=== PATIENT | male | born 1955 | race Caucasian/White ===

== ENCOUNTER 2020-03-05 13:57 | Observation (INO) | payer MEDICARE, SELFPAY ==
[2020-03-05] VITALS (8 sets, daily range): BP systolic 154–180; BP diastolic 89–108; PULSE 90–109; RESP 15–20; TEMP 36.2–36.7; O2SAT 94–100; BMI 38.0
--- NOTE | ~2020-03-05 | XR_ITS ---
XR chest 2V DATE: 03/06/2020 10:25 INDICATION: Left chest pain. Bilateral infiltrates. TECHNIQUE: PA and lateral chest COMPARISON: 03/05/2020 portable AP chest 10/25/2019 CT chest FINDINGS: There are areas of soft tissue prominence associated with multiple left rib fractures inclu ding left fourth through seventh ribs. Consider left rib series for further evaluation. No pneumothor ax is noted. There is minimal bilateral apical capping. Calcified left lower lobe pulmonary granuloma . No pulmonary infiltrate or consolidation is detected. No pleural effusion. No hilar or mediastinal enlargement is evident. Normal heart size. Diffuse idiopathic skeletal hyperostosis of the thoracic spine Status post lower anterior cervical spine surgical fusion. IMPRESSION: Multiple likely recent healing left rib fractures, involving at least the anterolateral l eft fourth through seventh ribs Reviewed, dictated and finalized at location A. IMPRESSION: Multiple likely recent healing left rib fractures, involving at vipul st the anterolateral left fourth through seventh ribs
--- NOTE | ~2020-03-05 | XR_ITS ---
EXAMINATION: XR chest 1V portable DATE: 03/05/2020 14:32 INDICATION: Left chest pain. TECHNIQUE: A single frontal view of the chest was obtained. COMPARISON: Chest 2 views 05/24/2013, chest CT 10/25/2019 FINDINGS: A calcified left lung nodule and calcified left hilar lymph nodes are consistent with old g ranulomatous disease. There are interstitial opacities in the perihilar regions bilaterally. No pleur al effusion or pneumothorax. The heart size is normal. There are changes of anterior fusion procedure in cervical spine. IMPRESSION: 1. Bilateral perihilar interstitial opacities, consistent with mild pulmonary edema versus atypical p neumonia versus atelectasis. Reviewed, dictated and finalized at location A. IMPRESSION: 1. Bilateral perihilar interstitial opacities, consistent with mild pulmonary e jean versus atypical pneumonia versus atelectasis.
--- NOTE | ~2020-03-05 | CT_ITS ---
EXAMINATION: CT abdomen pelvis w con EXAM DATE: 03/05/2020 15:54 INDICATION: Left-sided abdominal pain. TECHNIQUE: Spiral CT of the abdomen and pelvis was performed following intravenous injection of 100 m L Omnipaque 350. Axial, coronal and sagittal images were reviewed. The dose-length product (DLP) fo r this examination was 1584.65 mGy-cm. The exposure was tailored according to patient size (auto mA exposure control), and iterative reconstruction (ASIR) was used as additional dose reduction techniqu e. Comparison is made to prior examination from 10/25/2019. FINDINGS: The largest liver cyst is in the left liver lobe, measures 1.9 cm. There is a right adrena l gland lesion measuring 0.8 cm probably a small adenoma. Left adrenal gland, pancreas, spleen are un remarkable. Gallbladder has mild inflammation surrounding it. No calcified cholelithiasis, but appearance is susp icious for acute cholecystitis. No common bile or intrahepatic biliary duct dilation. Small region o f right renal cortical scarring. No hydronephrosis. The prostate is unremarkable. The bladder is un remarkable. There is no retroperitoneal or pelvic lymphadenopathy. The appendix is normal. The stomach and small bowel are unremarkable. There is expected amount of c olonic stool. No free intraperitoneal gas. The heart is normal in size. There are no pericardial or pleural effusions. The lung bases are unremarkable. There are no osteoblastic or osteolytic les ions identified. L4-5 laminectomies, posterior and interbody fusion. IMPRESSION: 1. Probable acute cholecystitis. 2. Small right adrenal lesion likely adenoma unchanged. 3. Right renal cortical scarring. Reviewed, dictated and finalized at location A.
--- NOTE | ~2020-03-05 | US_ITS ---
EXAMINATION: US right upper quadrant DATE: 03/06/2020 10:21 INDICATION: Acute cholecystitis. TECHNIQUE: Multiple grayscale and Doppler ultrasound images of the abdomen were obtained. COMPARISON: CT abdomen and pelvis 03/05/2020 FINDINGS: The visualized portions of the head, body, and tail of the pancreas are normal. There is di ffuse hepatic steatosis. There is normal flow in main portal vein. The gallbladder is normal in size. There are gallstones in the gallbladder. Gallbladder wall thickening is noted. There was no sonograp hic Lopes sign. The common duct is normal and measures 5 mm. IMPRESSION: 1. Gallstones. Gallbladder wall thickening may be secondary to chronic cholecystitis, interstitial ed edd, or chronic liver disease. 2. Diffuse hepatic steatosis. Reviewed, dictated and finalized at location A. IMPRESSION: 1. Gallstones. Gallbladder wall thickening may be secondary to chronic cholecys titis, interstitial edema, or chronic liver disease. 2. Diffuse hepatic steatosis.
--- NOTE | ~2020-03-05 | NM_ITS ---
EXAMINATION: NM hepatobiliary w pharm DATE: 03/06/2020 12:33 INDICATION: Acute cholecystitis. COMPARISON: CT abdomen and pelvis 03/05/2020, ultrasound 03/06/2020 TECHNIQUE: 5.5 mCi Tc-99m mebrofenin (Choletec) was administered intravenously. Scintigraphic images of the abdomen were obtained for one hour. Then, 2 mg morphine was administered, and imaging was con tinued for 30 minutes. FINDINGS: There is normal clearance of radiotracer from the blood pool. There is homogeneous tracer u ptake by the liver. Activity progresses to the bowel. IMPRESSION: 1. No activity in the gallbladder, consistent with acute cholecystitis. Reviewed, dictated and finalized at location A.
--- NOTE | 2020-03-05 14:12 | ECG_ITS ---
Measurements Intervals [place] Rate: 107 P: 51 [place]: 143 QRS: -3 QRSD: 88 T: 27 QT: 332 QTc: 444 Interpretive Statements SINUS TACHYCARDIA BORDERLINE T WAVE ABNORMALITY- INFERIOR LEADS BASELINE ARTIFACT- I, II ABNORMAL ECG Electronically Signed On 03-05-2020 15:27:07 CDT by Kannan Quezada D.O.
--- NOTE | 2020-03-05 14:27 | ED.CHESTPAIN ---
HPI - Chest Pain General Chief Complaint: Chest Pain Stated Complaint: ABD/CHEST PAIN Time Seen by Provider: 03/05/20 14:08 Source: patient Limitations: no limitations History of Present Illness HPI narrative: Pt c/o chest pain, left chest, 06/16, non radiating, pressure, accompanied by left sided abd pain, started today. Denies n/v/d or fever. Denies sob. Related Data Allergies Allergy/AdvReac Type Severity Reaction Status Date / Time No Known Allergies Allergy Verified 05/03/19 15:56 Review of Systems Review of Systems: All systems reviewed & are unremarkable except as noted in HPI and below Constitutional: Constitutional: Denies body ache(s), Denies chills, Denies excessive sweating, Denies fatigue, Denies fever(s), Denies headache(s), Denies lethargy, Denies malaise, Denies weakness and Denies weight loss Eyes: Eyes: Denies blurry vision, Denies change in vision and Denies loss of vision ENT: Denies dizziness, Denies ear discharge, Denies headache(s), Denies lip swelling, Denies epistaxis, Denies nasal congestion, Denies neck pain, Denies throat swelling and Denies tongue swelling Cardiovascular: Cardiovascular: Denies diaphoresis, Denies rapid heart rate, Denies edema, Denies irregular heart rhythm, Denies lightheadedness, Denies palpitations, Denies dyspnea and Denies dyspnea on exertion Respiratory: Respiratory: Denies chest congestion, Denies cough, Denies hemoptysis, Denies dyspnea and Denies dyspnea on exertion Gastrointestinal: Gastrointestinal: Denies melena, Denies hematochezia, Denies diarrhea, Denies nausea, Denies vomiting and Denies hematemesis Musculoskeletal: Musculoskeletal: Denies abnormal gait, Denies deformity, Denies joint swelling, Denies limited range of motion, Denies neck pain and Denies numbness Neurologic: Denies Abnormal speech present, Denies abnormal gait, Denies confusion, Denies dizziness, Denies headache(s), Denies focal weakness, Denies loss of vision, Denies numbness, Denies Other visual disturbances, Denies Sensory deficit (Neuro) and Denies weakness Psychiatric: Psychiatric: Denies confusion, Denies depression, Denies auditory hallucinations, Denies homicidal ideation and Denies suicidal ideation Endocrine: Endocrine: Denies cold intolerance, Denies excessive sweating, Denies fatigue, Denies heat intolerance and Denies palpitations Hematologic/Lymphatic: Hematologic/Lymphatic: Denies easy bleeding and Denies easy bruising Allergic/Immunologic: Allergic/Immunologic: Denies lip swelling, Denies throat swelling and Denies tongue swelling PMFSH Past Medical History Medical History (Updated 03/05/20 @ 16:32 by Yohannes Peterson MD) Anxiety DM (diabetes mellitus) GERD (gastroesophageal reflux disease) H/O: HTN (hypertension) Heart murmur History of heart attack Hx of migraines Hx of rotator cuff tear Hypercholesteremia Surgical History Surgical History (Updated 10/25/19 @ 20:16 by Damien Britton) Hx of cardiac cath Hx of rotator cuff surgery Hx of spinal fusion Social History Social History (Updated 10/25/19 @ 20:17 by Damien Britton) Smoking status: Former smoker Gender identity (if verbalized by the patient): Male Exam Const: General: cooperative, healthy appearing, comfortable, no acute distress, well developed, alert and awake; No confusion Orientation/consciousness: oriented to person, oriented to place, oriented to time, patient oriented x3 and No confusion Limitations: no limitations HENMT: Head: normal to inspection, normocephalic and atraumatic Ears: hearing grossly normal bilaterally, TM normal on the right and TM normal on the left General nose exam: Normal external nose present, Normal nares present and No nasal discharge present Face and sinus: normal facial exam Mouth: Yes Normal oral and palatal mucosa present, Yes lip normal, Yes tongue normal and Yes oropharynx normal Throat: posterior oropharynx normal, tonsils normal and uvula midline Eyes: General: ap
[2020-03-05] MEDS: ASPIRIN 81 MG CHEWABLE TABLET 324 MG PO (14:29)
[2020-03-05 14:31] LABS: Basophils Absolute Auto 0.1 K/mm3 (0.0-0.1); Basophils Percent Auto 0.5 % (0.2-1.2); Eosinophils Absolute Auto 0.1 K/mm3 (0-0.3); Eosinophils Percent Auto 0.7 % (0-4.4); Hematocrit 46.6 % (42.0-52.0); Hemoglobin 15.8 g/dL (14.0-18.0); Immature Granulocyte Absolute 0.06 K/mm3 (0.00-0.031); Immature Granulocyte Percent A 0.4 % (0-0.5); Lymphocytes Absolute Auto 1.91 K/mm3 (0.9-3.2); Lymphocytes Percent Auto 13.9 % (18.3-44.2); Mean Corpuscular HGB Conc 33.9 g/dl (32-36); Mean Corpuscular Hemoglobin 29.1 pg (26-34); Mean Corpuscular Volume 85.8 fl (80-100); Monocytes Absolute Auto 1.1 K/mm3 (0.1-0.6); Monocytes Percent Auto 8.3 % (2.6-8.5); Neutrophils Absolute Auto 10.5 K/mm3 (1.3-6.7); Neutrophils Percent Auto 76.2 % (45.5-73.1); Platelet Count Result 370 k/mm3 (150-375); Red Blood Count 5.43 M/mm3 (4.6-6.20); Red Cell Distribution Width 13.9 % (11.5-14.5); White Blood Count 13.8 K/mm3 (4.5-10.0)
[2020-03-05] MEDS: SODIUM CHLORIDE 0.9% IV 1,000 ML 999 ML IV CONT (14:35)
[2020-03-05] MEDS: ONDANSETRON INJ 4 MG/2 ML VIAL IV PUSH (14:35)
[2020-03-05] MEDS: MORPHINE SULFATE 2 MG/ML INJ IV PUSH ×2 (14:36→17:24)
[2020-03-05 14:39] LABS: INR 0.9; Prothrombin Time 11.7 Seconds (11.1-14.7)
[2020-03-05 14:40] LABS: Partial Thromboplastin Time 25.7 SECONDS (22.3-36.8)
[2020-03-05 14:42] LABS: Blood Urea Nitrogen 17 mg/dL (9-20); Calcium 9.8 mg/dL (8.4-10.2); Carbon Dioxide 24 mmol/L (22-30); Chloride 102 mmol/L (98-107); Estimated CRCL calculation 103 ml/min; Estimated Glomerular Filt Rate > 60; Glucose 142 mg/dL (75-110); Potassium 3.7 mmol/L (3.4-5.0); Sodium 135 mmol/L (137-145)
[2020-03-05 14:53] LABS: Troponin I < 0.012 ng/mL (0.000-0.034)
[2020-03-05 14:55] LABS: D Dimer 0.29 ug/mL (<0.48)
[2020-03-05 14:57] LABS: Alanine Aminotransferase 20 U/L (4-50); Albumin Level 4.7 g/dL (3.5-5.1); Alkaline Phosphatase 128 U/L (38-126); Aspartate Amino Transferase 28 U/L (17-59); Bilirubin,Total 0.3 mg/dL (0.2-1.3); Lipase 62 U/L (23-300)
[2020-03-05] MEDS: SODIUM CHLORIDE 0.9% IV 50 ML 999 ML (15:34)
[2020-03-05] MEDS: PROMETHAZINE HCL 25 MG/ML AMPUL 12.5 MG IV PUSH (15:34)
[2020-03-05 17:52] LABS: Troponin I 0.018 ng/mL (0.000-0.034)
--- NOTE | 2020-03-05 18:22 | PC.NURSE ---
This patient, Lauri Almeida, was admitted to IMU Room 203-01. Patient/family oriented to hospital policies and general routines including ID bracelet, bed and alarms, visiting hours, pain management, procedures, bathroom and other care routines, personal items, smoking policy, room service/diet, and visiting hours. Valuables list has been completed. Information on how to activate the Rapid Response Team has been discussed. Patient/Family are encouraged to report perceived risks to care and to ask questions if they do not understand what they are told or what they should do.
[2020-03-05] MEDS: LACTATED RINGERS 1,000 ML 125 ML IV CONT (18:48)
[2020-03-05] MEDS: MORPHINE SULFATE 2 MG/ML INJ 1 MG IV PUSH (20:59)
--- NOTE | 2020-03-05 21:41 | PM.IMHP ---
H&P: HPI History of Present Illness Chief complaint: chest pain,acute cholecystitis Narrative: Lauri Almeida is a 65 year old male who states that he has had a cardiac catheterization in the past and was negative. The patient stated he had some type of cardiac event when he was 8 years old. But does not recall getting any kind of cardiac surgery. The patient does have severe acid reflux as well. He in the had fried chicken last night the both woke up this morning with some chest discomfort. The patient stated that he took [place], Pepto-Bismol, and Maalox. He stated that he did not have any relief from his midsternal chest pain. He has not had any previous history of having any cardiac issues or any gallbladder issues. The patient stated that he had some midsternal pressure. And also affected the left side of the abdomen. Patient had some midsternal tenderness earlier when I examined him. Patient was given morphine for discomfort but he stated did not last very long. Cardiac enzymes have been negative so far. CT of the abdomen pelvis without contrast probable acute cholecystitis. Small right adrenal lesion likely adenoma unchanged. Right renal cortical scarring. Patient was started on Zosyn for possible cholecystitis and surgery has been consulted. Was read as sinus tachycardia. Abnormal EKG. When I saw his rhythm just now on the monitor it looks like sinus arrhythmia. Date of service 03/05/2020 Review of Systems Review of Systems: All systems reviewed & are unremarkable except as noted in HPI and below Constitutional: Constitutional: Reports as per HPI and Reports no additional constitutional complaints Eyes: Eyes: Reports as per HPI and Reports no additional eye complaints ENT: Reports system reviewed and no additional complaints, except as documented and Reports Normal hearing present Cardiovascular: Cardiovascular: Reports no additional cardiovascular complaints Respiratory: Respiratory: Reports no additional respiratory complaints and Reports no additional respiratory complaints Gastrointestinal: Gastrointestinal: Reports as per HPI and Reports no additional gastrointestinal complaints Musculoskeletal: Musculoskeletal: Reports no additional musculoskeletal complaints Integumentary/Breasts: Skin/Breast: Reports system reviewed and no additional complaints, except as docu and Reports as per HPI Neurologic: Reports system reviewed and no additional complaints, except as documented, Reports as per HPI and Reports Normal hearing present Psychiatric: Psychiatric: Reports no additional psychiatric complaints and Reports as per HPI Endocrine: Endocrine: Reports no additional endocrine complaints Hematologic/Lymphatic: Hematologic/Lymphatic: Reports no additional hematologic/lymphatic complaints Allergic/Immunologic: Allergic/Immunologic: Reports no additional allergic/immunologic complaints PMFSH Past Medical History Medical History (Updated 03/05/20 @ 21:48 by Mi Waite NP) Anxiety GERD (gastroesophageal reflux disease) H/O: HTN (hypertension) Heart murmur History of heart attack Hx of migraines Hx of rotator cuff tear Hypercholesteremia Hypertension Surgical History Surgical History (Updated 03/05/20 @ 21:48 by Mi Waite NP) Hx of cardiac cath Hx of rotator cuff surgery Right rotator cuff Hx of spinal fusion Social History Social History (Updated 03/05/20 @ 21:49 by Mi Waite NP) Social History: The patient tells me that he quit smoking about 14 years ago. He lives with his who is the durable power sheriff detective for healthcare. Patient desires to be a full code. He has 1 child that is a son. He is disabled. He quit drinking alcohol about 30 years ago. No marijuana or illicit drugs. Smoking packs per day: 3 Smoking cigarettes per day: 60.0 Years smoked: 34 Smoking pack-years: 102.00 Smoking status: Former smoker Tobacco type: cigarettes Alcohol in
[2020-03-05 21:42] LABS: Troponin I 0.022 ng/mL (0.000-0.034)
[2020-03-05] MEDS: HYDROMORPHONE HCL 1 MG/ML INJ IV PUSH (22:16)
[2020-03-05] MEDS: hydrOXYzine pamoate 25 MG CAPSULE 50 MG PO (22:33)
[2020-03-05] MEDS: FAMOTIDINE 20 MG/2 ML VIAL IV PUSH (22:34)
[2020-03-05] MEDS: SERTRALINE HCL 50 MG TABLET 100 MG PO (22:34)
[2020-03-06] VITALS (10 sets, daily range): BP systolic 121–154; BP diastolic 72–90; PULSE 83–100; RESP 18–26; TEMP 36.2–37.1; O2SAT 92–96
[2020-03-06] MEDS: LACTATED RINGERS 1,000 ML 125 ML IV CONT ×2 (02:45→14:19)
[2020-03-06] MEDS: HYDROMORPHONE HCL 1 MG/ML INJ IV PUSH ×2 (02:45→23:19)
[2020-03-06 04:43] LABS: Basophils Absolute Auto 0.1 K/mm3 (0.0-0.1); Basophils Percent Auto 0.6 % (0.2-1.2); Eosinophils Absolute Auto 0.2 K/mm3 (0-0.3); Eosinophils Percent Auto 2.1 % (0-4.4); Hematocrit 43.3 % (42.0-52.0); Hemoglobin 14.6 g/dL (14.0-18.0); Immature Granulocyte Absolute 0.03 K/mm3 (0.00-0.031); Immature Granulocyte Percent A 0.4 % (0-0.5); Lymphocytes Absolute Auto 1.08 K/mm3 (0.9-3.2); Lymphocytes Percent Auto 12.8 % (18.3-44.2); Mean Corpuscular HGB Conc 33.7 g/dl (32-36); Mean Corpuscular Hemoglobin 29.4 pg (26-34); Mean Corpuscular Volume 87.3 fl (80-100); Mean Platelet Volume 8.8 fl (7.4-10.4); Monocytes Absolute Auto 0.9 K/mm3 (0.1-0.6); Monocytes Percent Auto 10.1 % (2.6-8.5); Neutrophils Absolute Auto 6.2 K/mm3 (1.3-6.7); Platelet Count Result 266 k/mm3 (150-375); Red Blood Count 4.96 M/mm3 (4.6-6.20); Red Cell Distribution Width 14.2 % (11.5-14.5); White Blood Count 8.4 K/mm3 (4.5-10.0)
[2020-03-06 04:54] LABS: Alanine Aminotransferase 18 U/L (4-50); Alkaline Phosphatase 81 U/L (38-126); Aspartate Amino Transferase 24 U/L (17-59); Bilirubin,Total 0.4 mg/dL (0.2-1.3); Blood Urea Nitrogen 12 mg/dL (9-20); Calcium 8.4 mg/dL (8.4-10.2); Carbon Dioxide 25 mmol/L (22-30); Chloride 105 mmol/L (98-107); Estimated CRCL calculation 117 ml/min; Estimated Glomerular Filt Rate > 60; Glucose 124 mg/dL (75-110); Lipase 80 U/L (23-300); Magnesium 2.1 mg/dL (1.6-2.3); Sodium 135 mmol/L (137-145)
[2020-03-06 07:41] LABS: Free T4 Free Thyroxine Reflex 0.95 ng/dL (0.78-2.19)
[2020-03-06] MEDS: FAMOTIDINE 20 MG/2 ML VIAL IV PUSH ×2 (08:18→21:00)
[2020-03-06 08:51] LABS: Total Triiodothyronine (T3) 1.25 NG/ML (0.97-1.69)
[2020-03-06 09:05] LABS: Hemoglobin 13.7 g/dL (14.0-18.0); Mean Corpuscular HGB Conc 33.4 g/dl (32-36); Mean Corpuscular Hemoglobin 29.1 pg (26-34); Mean Corpuscular Volume 87.2 fl (80-100); Mean Platelet Volume 8.7 fl (7.4-10.4); Platelet Count Result 240 k/mm3 (150-375); Red Cell Distribution Width 14.4 % (11.5-14.5); White Blood Count 8.4 K/mm3 (4.5-10.0)
[2020-03-06 09:17] LABS: Blood Urea Nitrogen 12 mg/dL (9-20); Calcium 8.2 mg/dL (8.4-10.2); Carbon Dioxide 26 mmol/L (22-30); Chloride 103 mmol/L (98-107); Estimated CRCL calculation 132 ml/min; Estimated Glomerular Filt Rate > 60; Glucose 124 mg/dL (75-110); Sodium 134 mmol/L (137-145)
[2020-03-06 09:28] LABS: Troponin I < 0.012 ng/mL (0.000-0.034)
[2020-03-06] MEDS: KETOROLAC 30 MG/ML VIAL (*BKC) IV PUSH (10:43)
[2020-03-06] MEDS: MORPHINE SULFATE 2 MG/ML INJ IV PUSH (11:55)
[2020-03-06] MEDS: hydrOXYzine pamoate 25 MG CAPSULE 50 MG PO ×3 (12:31→20:58)
[2020-03-06] MEDS: LOSARTAN POTASSIUM 100 MG TABLET PO (12:31)
[2020-03-06] MEDS: hydroCHLOROthiazide 12.5 MG CAPSULE PO (12:31)
[2020-03-06] MEDS: AMLODIPINE BESYLATE 5 MG TABLET PO (12:32)
[2020-03-06] MEDS: FENOFIBRATE 160 MG TABLET PO (12:32)
[2020-03-06] MEDS: SERTRALINE HCL 50 MG TABLET 100 MG PO ×2 (12:32→20:57)
--- NOTE | 2020-03-06 13:38 | PM.IMPN ---
Progress Note: A&P Assessment and Plan (1) Acute cholecystitis: Code(s): K81.0 - Acute cholecystitis Status: Acute Assessment and Plan: CT, U/s, HIDA all c/w acute cholecystitis Surgical consultation (2) Chest pain in adult: Code(s): R07.9 - Chest pain, unspecified Status: Acute Assessment and Plan: Noncardiac Likely due to acute cholecystitis (3) Hypertension: Qualifiers: Hypertension type: unspecified Qualified Code(s): I10 - Essential (primary) hypertension Code(s): I10 - Essential (primary) hypertension Status: Chronic Assessment and Plan: Monitor on home regimen PRN hydralazine if NPO for procedure (4) GERD (gastroesophageal reflux disease): Qualifiers: Esophagitis presence: esophagitis presence not specified Qualified Code(s): K21.9 - Gastro-esophageal reflux disease without esophagitis Code(s): K21.9 - Gastro-esophageal reflux disease without esophagitis Status: Chronic Assessment and Plan: Famotidine Subjective Date/time seen: 03/06/20 13:38 Interval history: Admitted 03/05 with upper abd, chest pain. More pain in LUQ. 03/06: Mild pain in upper abdomen. Mild nausea. No CP or SOB. Review of Systems Review of Systems: All systems reviewed & are unremarkable except as noted in HPI and below Exam Narrative: Exam Narrative: HEENT: EOMI, PERRL, sclerae nonicteric, pharyngeal mucosa pink and intact NECK: No JVD CHEST: Clear to auscultation. Normal effort. HEART: NL S1/S2, regular, no murmur ABDOMEN: BS+, soft, TENDER LUQ AND RLQ, no mass or rebound or guarding EXTREMITIES: No cyanosis, edema, or clubbing NEUROLOGIC: CN intact and symmetric to inspection. MUSCULOSKELETAL: Tone and strength symmetric. PSYCH: Alert. Oriented to person, place, and time. Objective Data Vital Signs Vital Signs: Vital Signs - 24 hr 03/05/20 14:09 03/05/20 15:01 03/05/20 16:01 Temperature 98.1 F Pulse Rate 109 H 93 94 Respiratory Rate 20 18 16 Blood Pressure 170/104 H 180/108 H 179/108 H Pulse Oximetry 95 94 97 03/05/20 17:20 03/05/20 18:15 03/05/20 18:19 Temperature 97.2 F L Pulse Rate 94 103 H 100 Respiratory Rate 15 20 Blood Pressure 178/95 H 155/89 H Pulse Oximetry 97 100 03/05/20 20:00 03/05/20 22:00 03/06/20 00:00 Temperature 97.9 F 98.7 F Pulse Rate 93 94 100 Respiratory Rate 20 20 Blood Pressure 154/98 H 147/90 H Pulse Oximetry 94 93 03/06/20 02:00 03/06/20 04:00 03/06/20 06:00 Temperature 98.7 F Pulse Rate 100 83 91 Respiratory Rate 20 Blood Pressure 154/89 H Pulse Oximetry 92 03/06/20 07:55 03/06/20 08:00 03/06/20 09:56 Temperature 98.2 F Pulse Rate 97 87 86 Respiratory Rate 24 H Blood Pressure 137/81 Pulse Oximetry 94 03/06/20 12:30 Temperature 97.2 F L Pulse Rate 84 Respiratory Rate 26 H Blood Pressure 141/85 H Pulse Oximetry 95 Intake/Output Intake/Output: Intake & Output 03/03/20 03/04/20 03/05/20 03/06/20 23:59 23:59 23:59 23:59 Intake Total 1150 1568 Output Total 1650 Balance 1150 -82 Meds/Results Medications: Active Medications Generic Name Dose Route Start Last Admin Trade Name Freq PRN Reason Stop Dose Admin Amlodipine Besylate 5 mg 03/06/20 09:00 03/06/20 12:32 Norvasc PO 5 mg DAILY PRETTY Administration Enoxaparin Sodium 40 mg 03/06/20 09:00 03/06/20 08:19 Lovenox SUB-Q Not Given DAILY PRETTY Famotidine 20 mg 03/05/20 22:15 03/06/20 08:18 Pepcid Iv IV PUSH 20 mg Q12HR PRETTY Administration Fenofibrate 160 mg 03/06/20 09:00 03/06/20 12:32 Fenofibrate PO 160 mg DAILY PRETTY Administration Hydrochlorothiazide 12.5 mg 03/06/20 09:00 03/06/20 12:31 Hydrochlorothiazide PO 12.5 mg DAILY PRETTY Administration Hydromorphone HCl 1 mg 03/05/20 21:53 03/06/20 02:45 Dilaudid Inj IV PUSH 1 mg Q3H PRN Administration Pain Rated 7-10 Hydroxyzine Fausto
--- NOTE | 2020-03-06 14:13 | PM.CNGS ---
Assessment and Plan Assessment and plan (1) Cholelithiasis and acute cholecystitis with obstruction: Code(s): K80.01 - Calculus of gallbladder with acute cholecystitis with obstruction Status: Acute Assessment and Plan: patient is feeling better now but HIDA scan does show cystic duct obstruction consistent with acute cholecystitis and cystic duct obstruction. I will go ahead and try the patient on a low-fat diet. I discussed the findings with him and have recommended laparoscopic cholecystectomy. He would prefer to go ahead with gallbladder surgery now while he is in the hospital. I discussed the procedure with him in detail. The procedure the risks the benefits and the usual recovery were discussed. Possibility of conversion open surgery was discussed. All questions were answered. He understands and agrees to go ahead. We will proceed tomorrow afternoon. (2) Type 2 diabetes mellitus: Code(s): E11.9 - Type 2 diabetes mellitus without complications Status: Chronic Assessment and Plan: Increases risk of the surgical procedure. (3) Morbid obesity due to excess calories: Code(s): E66.01 - Morbid (severe) obesity due to excess calories Status: Chronic Assessment and Plan: Increases risk of the surgical procedure. (4) Hypertension: Qualifiers: Hypertension type: unspecified Qualified Code(s): I10 - Essential (primary) hypertension Code(s): I10 - Essential (primary) hypertension Status: Chronic Assessment and Plan: Increases risk of the surgical procedure. (5) GERD (gastroesophageal reflux disease): Qualifiers: Esophagitis presence: esophagitis presence not specified Qualified Code(s): K21.9 - Gastro-esophageal reflux disease without esophagitis Code(s): K21.9 - Gastro-esophageal reflux disease without esophagitis Status: Chronic History of Present Illness Consult details Consult date: 03/06/20 Reason for consult: gallstones Narrative: the patient is a 65-year-old man who had fried chicken with mesh potatoes and gravy Winnie night. He went to bed and slept fine until 6:00 a.m. yesterday morning. He awakened at 6:00 a.m. with severe left chest and left upper quadrant abdominal pain. The pain was very severe, 8/10. It felt like a knife. He had chest pain about a year ago but this was bilateral and ended up being bilateral pneumonia. This pain is only in the left chest. He came to the emergency room. In the emergency room he was noted to be afebrile but did have tachycardia to 109 per minute. [place] [id number]. He had a CT scan which showed some mild inflammation of the gallbladder but no calcified gallstones but felt to probably be cholecystitis. His LFTs were normal outside of a barely elevated alkaline phosphatase. The patient was admitted overnight and his pain went away about 4:00 a.m. this morning. He currently has no pain at all and is hungry. He is not sure of any 1st degree relatives that have gallbladder problems. He is seen now in consultation regarding his left chest and left upper quadrant abdominal pain with abnormal CT scan. Review of Systems Review of Systems: All systems reviewed & are unremarkable except as noted in HPI and below Constitutional: Constitutional: Denies headache(s) ENT: Denies headache(s) Cardiovascular: Cardiovascular: Denies chest pain and Denies dyspnea Respiratory: Respiratory: Denies cough and Denies dyspnea Gastrointestinal: Gastrointestinal: Reports as per HPI Neurologic: Denies confusion and Denies headache(s) Psychiatric: Psychiatric: Denies confusion [facility] Past Medical History Medical History Anxiety GERD (gastroesophageal reflux disease) H/O: HTN (hypertension) Heart murmur History of heart attack Hx of migraines Hx of rotator cuff tear Hypercholesteremia Hypertension
[2020-03-06] MEDS: PROCHLORPERAZINE EDISYLATE 10 MG/2 ML VIAL IV PUSH (14:18)
--- NOTE | 2020-03-06 16:39 | WPDANESEPP ---
Anes - Eval Pre Procedure Procedure: Operation Date: 03/07/20 12:00 Proposed Procedures p Laparoscopic Cholecystectomy - Rupesh Jordan MD Date/Time: 03/06/20 16:39 Pre Op Diagnosis: chest pain,acute cholecystitis Patient Data Age: 65 Gender: M Height: 6 ft 1 in Weight: 131.5 kg Last Vital Signs Temp 97.7 F 03/06/20 15:21 Pulse 85 03/06/20 15:21 Resp 21 H 03/06/20 15:21 BP 149/82 H 03/06/20 15:21 Pulse Ox 95 03/06/20 15:21 Allergies Allergy/AdvReac Type Severity Reaction Status Date / Time No Known Allergies Allergy Verified 03/05/20 18:29 Home Medications Medication Instructions Recorded Confirmed Type methocarbamol [Robaxin-750] 750 mg PO TID 10 Days #30 tablet 10/25/19 03/05/20 Rx amlodipine 5 mg PO DAILY 03/05/20 03/05/20 History fenofibrate 160 mg PO DAILY 03/05/20 03/05/20 History hydrocodone-acetaminophen 1 tablet PO PRN PRN 03/05/20 03/05/20 History hydroxyzine pamoate 50 mg PO QID 03/05/20 03/05/20 History losartan-hydrochlorothiazide 1 tablet PO DAILY 03/05/20 03/05/20 History sertraline 100 mg PO BID 03/05/20 03/05/20 History Laboratory Tests 03/05/20 03/05/20 03/06/20 17:23 21:14 04:12 WBC 8.4 K/mm3 K/mm3 (4.5-10.0) RBC 4.96 M/mm3 M/mm3 (4.6-6.20) Hgb 14.6 g/dL g/dL (14.0-18.0) Hct 43.3 % % (42.0-52.0) MCV 87.3 fl fl (80-100) MCH 29.4 pg pg (26-34) MCHC 33.7 g/dl g/dl (32-36) RDW 14.2 % % (11.5-14.5) Plt Count 266 k/mm3 k/mm3 (150-375) MPV 8.8 fl fl (7.4-10.4) Immature Gran % (Auto) 0.4 % % (0-0.5) Neut % (Auto) 74.0 % H % (45.5-73.1) Lymph % (Auto) 12.8 % L % (18.3-44.2) [place] % (Auto) 10.1 % H % (2.6-8.5) Eos % (Auto) 2.1 % % (0-4.4) Baso % (Auto) 0.6 % % (0.2-1.2) Lymph # (Auto) 1.08 K/mm3 K/mm3 (0.9-3.2) [place] # (Auto) 0.9 K/mm3 H K/mm3 (0.1-0.6) Eos # (Auto) 0.2 K/mm3 K/mm3 (0-0.3) Baso # (Auto) 0.1 K/mm3 K/mm3 (0.0-0.1) Abs Immat Gran (auto) 0.03 K/mm3 K/mm3 (0.00-0.031) Absolute Neuts (auto) 6.2 K/mm3 K/mm3 (1.3-6.7) Absolute Nucleated RBC 0.0 K/mm3 K/mm3 (0.0-0.012) Nucleated RBC % 0.0 % % (0.0-0.2) Sodium Potassium Chloride Carbon Dioxide BUN Creatinine Estim Creat Clear Calc Estimated GFR Glucose Calcium Magnesium Total Bilirubin AST ALT Alkaline Phosphatase Troponin I 0.018 ng/mL D ng/mL 0.022 ng/mL D ng/mL (0.000-0.034) (0.000-0.034) Total Protein Albumin Lipase TSH (Reflex) Free T4 Total T3 Blood Type Antibody Screen 03/06/20 03/06/20 03/06/20 04:12 04:12 04:12 WBC RBC Hgb Hct MCV MCH MCHC RDW Plt Count MPV Immature Gran % (Auto) Neut % (Auto) Lymph % (Auto) [place] % (Auto) Eos % (Auto) Baso % (Auto) Lymph # (Auto) [place] # (Auto) Eos # (Auto) Baso # (Auto) Abs Immat Gran (auto) Absolute Neuts (auto) Absolute Nucleated RBC Nucleated RBC % Sodium 135 mmol/L L mmol/L (137-145) Potassium 4.0 mmol/L mmol/L (3.4-5.0) Chloride 105 mmol/L mmol/L (98-107) Carbon Dioxide 25 mmol/L mmol/L (22-30) BUN 12 mg/dL D mg/dL (9-20) Creatinine 0.80 mg/dL mg/dL (0.7-1.3) Estim Creat Clear Calc 117 ml/min ml/min Estimated
[2020-03-07] VITALS (13 sets, daily range): BP systolic 120–152; BP diastolic 71–99; PULSE 83–100; RESP 16–24; TEMP 35.7–36.9; O2SAT 92–97
[2020-03-07] MEDS: LACTATED RINGERS 1,000 ML 125 ML IV CONT (02:23)
[2020-03-07] MEDS: CHLORHEXIDINE GLUCONATE 4% SOL 120 ML BTL 1 APPLIC TOPICAL (05:36)
[2020-03-07] MEDS: HYDROMORPHONE HCL 1 MG/ML INJ IV PUSH (06:55)
--- NOTE | 2020-03-07 07:59 | P.PNAN_ITS ---
Anes - Eval Final PreProcedure Day of Procedure 03/07/20 07:59 Patient weight: obese Heart: regular rate and rhythm Lungs: clear to auscultation and normal air movement Airway: Mallampati scale class II Neurological: alert and oriented Last oral intake: >/= 8 hours ASA classification: III Emergent: no Anesthetic plan: proceed Anesthesia type and monitoring: general ETT Informed Consent: The patient's anesthetic plan and its attendant risks and be nefits were discussed with the patient/family/POA. Questions were solicited and answers provided to the satisfaction of the patient/family/POA.
[2020-03-07] MEDS: FAMOTIDINE 20 MG/2 ML VIAL IV PUSH ×2 (08:21→20:53)
[2020-03-07] MEDS: AMLODIPINE BESYLATE 5 MG TABLET PO (08:21)
--- NOTE | 2020-03-07 09:20 | PM.IMPN ---
Progress Note: A&P Assessment and Plan (1) Acute cholecystitis: Code(s): K81.0 - Acute cholecystitis Status: Deleted Assessment and Plan: CT, U/s, HIDA all c/w acute cholecystitis Medically stable for lap zhane 03/07 (2) Chest pain in adult: Code(s): R07.9 - Chest pain, unspecified Status: Acute Assessment and Plan: Noncardiac Clinically due to acute cholecystitis (3) Hypertension: Qualifiers: Hypertension type: unspecified Qualified Code(s): I10 - Essential (primary) hypertension Code(s): I10 - Essential (primary) hypertension Status: Chronic Assessment and Plan: Monitor on home regimen PRN hydralazine while NPO for procedure (4) GERD (gastroesophageal reflux disease): Qualifiers: Esophagitis presence: esophagitis presence not specified Qualified Code(s): K21.9 - Gastro-esophageal reflux disease without esophagitis Code(s): K21.9 - Gastro-esophageal reflux disease without esophagitis Status: Chronic Assessment and Plan: Famotidine Subjective Date/time seen: 03/07/20 09:20 Interval history: Admitted 03/05 with upper abd, chest pain. More pain in LUQ. 03/07: Minimal abdominal discomfort. No nausea. No CP or SOB. Review of Systems Review of Systems: All systems reviewed & are unremarkable except as noted in HPI and below Exam Narrative: Exam Narrative: HEENT: EOMI, PERRL, sclerae nonicteric, pharyngeal mucosa pink and intact NECK: No JVD CHEST: Clear to auscultation. Normal effort. HEART: NL S1/S2, regular, no murmur ABDOMEN: BS+, soft,MINIMALLY TENDER LUQ AND RLQ, no mass or rebound or guarding EXTREMITIES: No cyanosis, edema, or clubbing NEUROLOGIC: CN intact and symmetric to inspection. MUSCULOSKELETAL: Tone and strength symmetric. PSYCH: Alert. Oriented to person, place, and time. Objective Data Vital Signs Vital Signs: Vital Signs - 24 hr 03/06/20 09:56 03/06/20 12:30 03/06/20 15:21 Temperature 97.2 F L 97.7 F Pulse Rate 86 84 85 Respiratory Rate 26 H 21 H Blood Pressure 141/85 H 149/82 H Pulse Oximetry 95 95 03/06/20 22:00 03/07/20 06:00 03/07/20 09:02 Temperature 97.5 F L 97.6 F Pulse Rate 95 92 Respiratory Rate 18 18 Blood Pressure 121/72 149/81 H Pulse Oximetry 96 96 92 Intake/Output Intake/Output: Intake & Output 03/04/20 03/05/20 03/06/20 03/07/20 23:59 23:59 23:59 23:59 Intake Total 1150 3540 700 Output Total 1650 Balance 1150 1890 700 Meds/Results Medications: Active Medications Generic Name Dose Route Start Last Admin Trade Name Freq PRN Reason Stop Dose Admin Amlodipine Besylate 5 mg 03/06/20 09:00 03/07/20 08:21 Norvasc PO 5 mg DAILY PRETTY Administration Enoxaparin Sodium 40 mg 03/06/20 09:00 03/07/20 07:43 Lovenox SUB-Q Not Given DAILY PRTETY Famotidine 20 mg 03/05/20 22:15 03/07/20 08:21 Pepcid Iv IV PUSH 20 mg Q12HR PRETTY Administration Fenofibrate 160 mg 03/06/20 09:00 03/07/20 07:43 Fenofibrate PO Not Given DAILY [facility] Fentanyl Citrate 25 mcg 03/07/20 07:50 Sublimaze IV PUSH Q2M PRN Pain Hydralazine HCl 10 mg 03/06/20 13:49 Apresoline Hcl Inj IV PUSH Q8H PRN Blood Pressure - High Hydrochlorothiazide 12.5 mg 03/06/20 09:00 03/07/20 08:18 Hydrochlorothiazide PO Not Given DAILY PRETTY Hydromorphone HCl 1 mg 03/05/20 21:53 03/07/20 06:55 Dilaudid Inj IV PUSH 1 mg Q3H PRN Administration Pain Rated 7-10 Hydromorphone HCl 0.25 mg 03/07/20 07:50 Dilaudid Inj IV PUSH Q5M PRN Pain Hydroxyzine Pamoate 50 mg 03/05/20 22:05 03/07/20 08:16 Vistaril Capsule PO 04/05/20 22:06 Not Given QID PRETTY Lactated Ringer's 1,000 mls @ 125 mls/hr 03/05/20 16:35 03/07/20 02:23 Lr - Lactated Ringers Iv IV CONT 125 mls/hr .Q8H PRETTY Administration Piperacillin/Tazobactam/Dextrose 3.375 gm in 50 mls @ 100 mls/hr 03/06/20
[2020-03-07 10:28] LABS: Blood Urea Nitrogen 10 mg/dL (9-20); Calcium 8.6 mg/dL (8.4-10.2); Carbon Dioxide 23 mmol/L (22-30); Chloride 106 mmol/L (98-107); Estimated CRCL calculation 118 ml/min; Estimated Glomerular Filt Rate > 60; Glucose 110 mg/dL (75-110); Potassium 3.8 mmol/L (3.4-5.0); Sodium 136 mmol/L (137-145)
--- NOTE | 2020-03-07 10:32 | PC.NURSE ---
To OR per bed. IV saline locked.
[2020-03-07] MEDS: LACTATED RINGERS 1,000 ML 30 ML IV CONT ×2 (11:00→15:38)
[2020-03-07 11:53] LABS: Glucose Point of Care 93 (65-105)
[2020-03-07] MEDS: ceFAZolin 3 GM/D5W 100 ML 100 ML IVPB (13:28)
[2020-03-07] MEDS: BUPIVACAINE/EPINEPHRINE 0.5% 30 ML VIAL INFILTRATE (14:46)
--- NOTE | 2020-03-07 15:36 | PM.PROC ---
Procedure Note - Detailed Date of procedure: 03/07/20 Pre-op diagnosis: chest pain,acute cholecystitis Cholelithiasis with acute cholecystitis and cystic duct obstruction Post-op diagnosis: same Procedure performed: Laparoscopic cholecystectomy Description of procedure: The patient was taken to surgery and induced into general anesthesia. The abdomen was prepped and draped. Trocars were placed in the usual fashion using 0.5% Marcaine with epinephrine and applied Medical optical trocars. 5 mm camera was used. The gallbladder was surrounded by omental adhesions. There were also adhesions to the undersurface of the liver. These were taken down and a very inflamed gallbladder was noted. Bleeding from the adhesions occurred and cautery was required to control this. The gallbladder wall was quite thickened and edematous consistent with acute inflammation. There was no evidence of a ruptured gallbladder. I had to place a 5th trocar in the left mid abdomen to help with posterior retraction of the duodenum. Once the adhesions were taken down, I then proceeded to decompress the gallbladder with a laparoscopic aspirator. Dark bile was returned. The gallbladder decompressed well. We then retracted the gallbladder anterosuperiorly and freed the remaining adhesions to the infundibulum and distal gallbladder. Traction was placed on the infundibulum and dissection was started. The inflammation was very severe and some cautery was used. There was acute inflammation with plume and smoke making the dissection more difficult. Eventually the cystic duct and cystic artery were exposed. The gallbladder was dissected off the liver at its lower 3rd and critical view was achieved. I securely clipped and divided the cystic duct and cystic artery. I could see there were stones in the proximal cystic duct and I clipped and divided it distal to those stones. From there we then proceeded to dissect the gallbladder from the liver. This was difficult dissection as the peritoneum investing the gallbladder was thickened and fibrotic. Also the tissue plane between the gallbladder and the liver was obscured with inflammation. Some entry into the liver and 1 entry into the gallbladder itself occurred while dissecting the gallbladder off the liver. Some of the gallbladder was bluntly dissected off the liver as the plane between the gallbladder and the liver was obliterated. Eventually the gallbladder was removed at the fundus. It was set aside and we proceeded to achieve hemostasis of the gallbladder fossa. This was somewhat difficult as there was a fair amount of raw liver surface. Also the patient had fatty liver and retracting the liver adequately was difficult throughout the surgery. Cautery was used and eventually hemostasis was adequate. We then placed the gallbladder in an Endo-Catch bag and retrieved it through the 10 11 epigastric trocar site. The trocar site had to be slightly enlarged to accommodate the gallbladder. Once the gallbladder was removed, the epigastric trocar was replaced and we used a towel clip to occlude the skin so that re-insufflation could take place. We again inspected the gallbladder fossa. It was irrigated and suctioned repeatedly. Some additional cautery was used on the gallbladder fossa. Hemostasis looked to be quite good. Nonetheless, with the acutely inflamed gallbladder and the raw liver surface, I did go ahead and place a 19 Israeli Edward drain in the right upper quadrant in the subhepatic space. The drain was sutured to the skin with 2 0 silk. We looked a final time at the gallbladder fossa and areas of dissection. All looked good. We then evacuated CO2 and removed the trocar sleeves. The fascia at the epigastric trocar site was closed with [id number] mattress sutures of 0 Vicryl. The subcu was closed with 3 0 Vicryl suture. All skin wounds were closed with subcuticular 4 O Monocryl skin suture. The wounds were dressed with Exofin surgical
[2020-03-07 16:00] LABS: Glucose Point of Care 155 (65-105)
--- NOTE | 2020-03-07 16:47 | PC.NURSE ---
Patient return from OR per bed.
[2020-03-07] MEDS: LACTATED RINGERS 1,000 ML 100 ML IV CONT (16:52)
[2020-03-07] MEDS: MORPHINE SULFATE 4 MG/ML INJ IV PUSH (18:34)
[2020-03-07] MEDS: hydrOXYzine pamoate 25 MG CAPSULE 50 MG PO (20:53)
[2020-03-07] MEDS: SERTRALINE HCL 50 MG TABLET 100 MG PO (20:53)
[2020-03-08 02:00] VITALS: BP 141/83; PULSE 98; RESP 18; TEMP 36.2; O2SAT 96
--- NOTE | 2020-03-08 04:12 | ADMGEN ---
This patient, Lauri Almeida, was admitted to Medical Room 249-01. Patient/family oriented to hospital policies and general routines including ID bracelet, bed and alarms, visiting hours, pain management, procedures, bathroom and other care routines, personal items, smoking policy, room service/diet, and visiting hours. Valuables list has been completed. Information on how to activate the Rapid Response Team has been discussed. Patient/Family are encouraged to report perceived risks to care and to ask questions if they do not understand what they are told or what they should do.
[2020-03-08 06:21] VITALS: BP 149/96; PULSE 104; RESP 22; TEMP 36.3; O2SAT 94
[2020-03-08 07:08] LABS: Hematocrit 37.4 % (42.0-52.0); Hemoglobin 12.6 g/dL (14.0-18.0); Mean Corpuscular HGB Conc 33.7 g/dl (32-36); Mean Corpuscular Hemoglobin 29.6 pg (26-34); Mean Corpuscular Volume 87.8 fl (80-100); Mean Platelet Volume 9.2 fl (7.4-10.4); Platelet Count Result 264 k/mm3 (150-375); Red Blood Count 4.26 M/mm3 (4.6-6.20); Red Cell Distribution Width 14.2 % (11.5-14.5); White Blood Count 9.9 K/mm3 (4.5-10.0)
[2020-03-08 07:17] LABS: Blood Urea Nitrogen 10 mg/dL (9-20); Calcium 8.8 mg/dL (8.4-10.2); Carbon Dioxide 24 mmol/L (22-30); Chloride 103 mmol/L (98-107); Estimated CRCL calculation 106 ml/min; Estimated Glomerular Filt Rate > 60; Glucose 139 mg/dL (75-110); Potassium 3.6 mmol/L (3.4-5.0); Sodium 135 mmol/L (137-145)
[2020-03-08] MEDS: MORPHINE SULFATE 4 MG/ML INJ IV PUSH ×3 (08:06→13:12)
[2020-03-08] MEDS: ENOXAPARIN 40 MG/0.4 ML SYRINGE SUB-Q (08:14)
[2020-03-08] MEDS: AMLODIPINE BESYLATE 5 MG TABLET PO (08:18)
[2020-03-08] MEDS: FAMOTIDINE 20 MG/2 ML VIAL IV PUSH (08:18)
[2020-03-08] MEDS: FENOFIBRATE 160 MG TABLET PO (08:18)
[2020-03-08] MEDS: LOSARTAN POTASSIUM 100 MG TABLET PO (08:18)
[2020-03-08] MEDS: SERTRALINE HCL 50 MG TABLET 100 MG PO (08:19)
[2020-03-08] MEDS: hydroCHLOROthiazide 12.5 MG CAPSULE PO (08:19)
[2020-03-08] MEDS: hydrOXYzine pamoate 25 MG CAPSULE 50 MG PO ×3 (08:19→18:00)
[2020-03-08 10:00] VITALS: BP 128/77; PULSE 94; RESP 20; TEMP 36.7; O2SAT 88; O2SAT 92
--- NOTE | 2020-03-08 10:00 | PC.NURSE ---
Patient with O2 sat 88%. Applied O2 at 2 liters per nasal cannula, bringing O2 sat to 92%. No dyspnea noted. Patient denies feeling short of breath.
--- NOTE | 2020-03-08 12:31 | PM.DS ---
DS: Diagnosis Admitting Diagnosis Admitting Diagnosis: Chest pain, unspecified Discharge Diagnosis (1) Acute cholecystitis: Code(s): K81.0 - Acute cholecystitis Status: Deleted Assessment and Plan: CT, U/s, HIDA all c/w acute cholecystitis Uncomplicated lap zhane 5 5/2 Tolerating diet, passing gas, L abd incision with mild bleeding, incisional pain 4/10, wants to go home (2) Chest pain in adult: Code(s): R07.9 - Chest pain, unspecified Status: Acute Assessment and Plan: Noncardiac Clinically due to acute cholecystitis (3) Hypertension: Qualifiers: Hypertension type: unspecified Qualified Code(s): I10 - Essential (primary) hypertension Code(s): I10 - Essential (primary) hypertension Status: Chronic Assessment and Plan: Monitor on home regimen PRN hydralazine while NPO for procedure Resume home meds (4) GERD (gastroesophageal reflux disease): Qualifiers: Esophagitis presence: esophagitis presence not specified Qualified Code(s): K21.9 - Gastro-esophageal reflux disease without esophagitis Code(s): K21.9 - Gastro-esophageal reflux disease without esophagitis Status: Chronic Assessment and Plan: Famotidine DS: Summary Hospital Course Reason for hospitalization: Admitted with chest and abdominal pain Hospital Course: Admitted with chest and abdominal pain. EKG unremarkable. Chest x-ray negative. Troponin negative x4. CT scan abdomen pelvis, ultrasound abdomen, and HIDA scan all consistent with acute cholecystitis. On 03/07 patient underwent uneventful laparoscopic cholecystectomy. Postoperatively was up and about independently. Tolerating diet. Passing flatus. Passing urine. Denied chest pain or shortness of breath. No nausea. Incisional pain controlled by analgesics. Time Spent with Patient Time attestation: Total time spent providing and/or coordinating discharge services: Exam Narrative: Exam Narrative: HEENT: EOMI, PERRL, sclerae nonicteric, pharyngeal mucosa pink and intact NECK: No JVD CHEST: Clear to auscultation. Normal effort. HEART: NL S1/S2, regular, no murmur ABDOMEN: BS+, soft, mild to moderate tenderness around incisions. Left lateral incision open superficially with mild bleeding. Cover with gauze and tape bandage. EXTREMITIES: No cyanosis, edema, or clubbing NEUROLOGIC: CN intact and symmetric to inspection. MUSCULOSKELETAL: Tone and strength symmetric. PSYCH: Alert. Oriented to person, place, and time. DS: Data Data Completed and Pending Pending studies at discharge: Pending at discharge 03/07/20 14:33 Surgical [PTH] Routine Labs on day of discharge: Labs from last 24 hours 03/08/20 03/08/20 03/07/20 06:15 06:15 15:57 WBC 9.9 RBC 4.26 L Hgb 12.6 L Hct 37.4 L MCV 87.8 MCH 29.6 MCHC 33.7 RDW 14.2 Plt Count 264 MPV 9.2 Sodium 135 L Potassium 3.6 Chloride 103 Carbon Dioxide 24 BUN 10 Creatinine 0.90 Estim Creat Clear Calc 106 Estimated GFR > 60 Glucose 139 H POC Capillary Glucose 155 H Calcium 8.8 Discharge Plan Discharge Consulting providers: Rupesh Jordan Discharging Clinician: Marek Angulo Patient Disposition: Home, Self-Care Activity: may shower, no straining and as tolerated Diet: low fat Wound Care Instructions: keep dressing dry, remove dressing to shower and change dressing daily Discharge Instructions: 1. May shower over incisions but remove any bandages before showering. Replace dressings after showering. TY drain site should be dressed daily for 3 days after discharge and then may be left open. 2. Call office for: -Wound increasingly painful or bleeding -Vomiting -Fever of greater than 101 degrees 3. Expect some blood on dressing and old blood on skin. 4. If no bowel movement for three days, take 1 oz. (30 ml) Milk of Magnesia, if no resu
[2020-03-08 14:00] VITALS: BP 117/71; PULSE 90; RESP 20; TEMP 36.7; O2SAT 92
--- NOTE | 2020-03-08 14:00 | PC.NURSE ---
Patient continues to c/o pain and asking for pain medication at 4 hours (ordered q6hr). Notified Dr. Robbins of patient's c/o pain and also of low O2 sat earlier (88%) and need to apply O2 at 2 liters per nasal cannula. Dr. Robbins states he will be up to assess patient soon and will be removing TY drain.
[2020-03-08 14:33] VITALS: BP 123/71; PULSE 93; RESP 20; TEMP 36; O2SAT 95
--- NOTE | 2020-03-08 15:00 | PC.NURSE ---
Dr. Robbins at bedside and removed TY drain without difficulty. Gauze and tegaderm applied to site.
--- NOTE | 2020-03-08 15:52 | PM.PNGS ---
Progress Note: A&P Assessment and Plan (1) Cholelithiasis and acute cholecystitis with obstruction: Onset Date: ~03/05/20 Code(s): K80.01 - Calculus of gallbladder with acute cholecystitis with obstruction Status: Acute Assessment and Plan: Postop day 1. Status post difficult laparoscopic cholecystectomy. Doing well. Plan for home later today if pain pills work well. Drain removed this date. (2) Type 2 diabetes mellitus: Code(s): E11.9 - Type 2 diabetes mellitus without complications Status: Chronic Assessment and Plan: Meds adjusted as per hospitalist. (3) Morbid obesity due to excess calories: Code(s): E66.01 - Morbid (severe) obesity due to excess calories Status: Chronic Assessment and Plan: patient encouraged stay on a low-fat diet. (4) GERD (gastroesophageal reflux disease): Qualifiers: Esophagitis presence: esophagitis presence not specified Qualified Code(s): K21.9 - Gastro-esophageal reflux disease without esophagitis Code(s): K21.9 - Gastro-esophageal reflux disease without esophagitis Status: Chronic Assessment and Plan: Patient resume usual home meds. (5) Hypertension: Qualifiers: Hypertension type: unspecified Qualified Code(s): I10 - Essential (primary) hypertension Code(s): I10 - Essential (primary) hypertension Status: Chronic Assessment and Plan: Patient resume usual home meds. Subjective Subjective Date/Time Seen: 03/08/20 15:52 Patient is sitting up in the chair fairly comfortable at the time that I visited. He states that he ate a large lunch without difficulty. He is however having some difficulty going 6 hours between pain pills. He is otherwise up moving and feeling okay. Review of Systems Constitutional: Constitutional: Reports no additional constitutional complaints ENT: Reports other (Mucous Membranes moist.) Cardiovascular: Cardiovascular: Denies dyspnea Respiratory: Respiratory: Denies pain on inspiration and Denies dyspnea Comments: Nurse reports patient was having some shortness of breath. His oxygen saturation was known to be done in the 80s and therefore he was placed back on 2 L of oxygen this afternoon. Patient is using his incentive spirometry. Musculoskeletal: Musculoskeletal: Reports other (No calf swelling or edema) Integumentary/Breasts: Skin/Breast: Reports system reviewed and no additional complaints, except as docu Exam Const: General: cooperative, no acute distress, alert and awake Orientation/consciousness: patient oriented x3 HENMT: Mouth: Yes moist mucous membranes Neck: Neck: normal visual inspection Chest: Chest palpation & inspection: normal inspection of the chest Resp: Effort & Inspection: normal respiratory effort Auscultation: clear to auscultation bilaterally Cardio: Jugular venous distension: no JVD Rate: regular rate Rhythm: regular rhythm GI: Inspection: normal to inspection and incision ( Slight serosanguineous drainage from left upper quadrant incision site.) Rectal Exam: deferred Other: TY drainage is serosanguineous and TY drain removed this date. 2 x 2 and Tegaderm applied for dressing. Neuro: General: patient oriented x3 and moves all extremities Speech: normal speech Extrem: General: normal exam except as noted Psych: Mental Status: mental status grossly normal Speech and movement: Normal speech and movement present Affect: normal affect Thought content: Yes Normal thought content present Objective Data Vital Signs Vital Signs: Vital Signs - 24 hr 03/07/20 16:05 03/07/20 16:20 03/07/20 16:35 Temperature Pulse Rate 86 85 87 Respiratory Rate 20 18 18 Blood Pressure 152/89 H 148/95 H 146/91 H Pulse Oximetry 92 97 95 03/07/20 16:55 03/07/20 17:17 03/07/20 17:40 Temperature 36.2 C L 36.1 C L 36.3 C L Pulse Rate 93 85 83 Respiratory Rate 16 18 18 Blood Pressure
== END 2020-03-08 18:12 | disposition home or self-care (01) ==
LOC: ANHED 16:37 → ANH2MED 03-06 13:55 → ANHIMU 03-10 13:24
PROVIDERS: Internal Medicine; Nurse Practitioner; Surgery; Admitting Provider Family Medicine; Emergency Provider Emergency Medicine; PCP Family Medicine; Visit Provider Internal Medicine
PROC: 0FT44ZZ Resection of Gallbladder, Percutaneous Endoscopic Approach (ICD-10-PCS; CPT 47562; principal; 2020-03-07 12:00)
DX: K80.12 Calculus of gallbladder with acute and chronic cholecystitis without obstruction (principal); K82.8 Other specified diseases of gallbladder; K82.A2 Perforation of gallbladder in cholecystitis; K76.0 Fatty (change of) liver, not elsewhere classified; R07.89 Other chest pain; E66.01 Morbid (severe) obesity due to excess calories; Z68.38 Body mass index [BMI] 38.0-38.9, adult; I10 Essential (primary) hypertension; K21.9 Gastro-esophageal reflux disease without esophagitis; I25.2 Old myocardial infarction; E78.00 Pure hypercholesterolemia, unspecified; F41.9 Anxiety disorder, unspecified; E11.9 Type 2 diabetes mellitus without complications; Z79.899 Other long term (current) drug therapy; Z87.891 Personal history of nicotine dependence
CPT/HCPCS: 47562; 36415; 71045; 71046; 74177; 76705; 78227; 80048; 80053; 80076; 83690; 83735; 84439; 84443; 84480; 84484; 85025; 85027; 85380; 85610; 85730; 86850; 86900; 86901; 88304; 93005; 96361; 96365; 96366; 96372; 96375; 96376; 99285; A9270; A9537; C1713; G0378; J0131; J0330; J0690; J0780; J1100; J1170; J1650; J1885; J2001; J2250; J2270; J2370; J2405; J2543; J2550; J2704; J2710; J2805; J3010; J7030; J7120; Q9967

== ENCOUNTER 2020-03-11 15:35 | Emergency (ER) | payer MEDICARE, SELFPAY ==
--- NOTE | ~2020-03-11 | CT_ITS ---
EXAMINATION: CTA chest PE protocol EXAM DATE: 03/11/2020 17:53 INDICATION: Shortness of breath, productive cough. Gallbladder surgery Tuesday. TECHNIQUE: Spiral CTA of the chest (pulmonary arteries) was performed with 100 cc Omnipaque 350 intr avenous contrast injection. Images were acquired during the pulmonary arterial phase. Coronal maxi mum intensity projection 3D-reconstructions were created by the technologist on dedicated workstation . Axial, coronal and sagittal reformatted images were reviewed. The dose-length product (DLP) for t his examination was 886.56 mGy-cm. The exposure was tailored according to patient size (auto mA exp osure control), and iterative reconstruction (ASIR) was used as additional dose reduction technique. Comparison is made to prior examination from 10/25/2019. FINDINGS: There are no pulmonary emboli in the 1st through 3rd order (central and interlobar) pulmon maya arteries. Some loss of attenuation in the segmental pulmonary arteries due to respiratory motion , but no intraluminal filling defects suspected. No thoracic aortic dissection. Left lower lobe ca lcified granuloma. There are no pleural or pericardial effusions. Tracheobronchial tree is patent. There is no mediastinal, hilar or axillary lymphadenopathy. There is no pneumothorax. Heart no rmal in size. There is mild coronary arterial calcification, arterial sclerosis. There is mild emph ysema. There is small postoperative changes in the gallbladder fossa without organized abscess. Sever al small liver cysts. sliding gastroesophageal hiatal hernia. There is thoracic spondylosis without osteoblastic or osteolytic lesions identified. IMPRESSION: 1. Limited segmental evaluation, but no pulmonary emboli are suspected. 2. Gallbladder fossa expected postoperative changes. 3. Mild emphysema. Reviewed, dictated and finalized at location A.
--- NOTE | ~2020-03-11 | US_ITS ---
EXAMINATION: US venous doppler [facility] EXAM DATE: 03/11/2020 17:37 INDICATION: Left leg pain. TECHNIQUE: Multiple grayscale, color flow and Doppler images of the left lower extremity deep venous system were obtained and reviewed. There is no prior study for comparison. FINDINGS: The left common femoral, femoral and profunda veins demonstrate normal color flow, respirat ory variation, augmentation and compressibility. Compressibility, color flow confirmed within the le ft popliteal, posterior tibial, peroneal, and greater saphenous veins. IMPRESSION: 1. No left lower extremity deep venous thrombosis. Reviewed, dictated and finalized at location A.
[2020-03-11 15:41] VITALS: BP 160/90; PULSE 113; RESP 22; TEMP 36.8; O2SAT 96
--- NOTE | 2020-03-11 15:58 | ECG_ITS ---
Measurements Intervals [place] Rate: 108 P: 34 CT: 163 QRS: -13 QRSD: 84 T: 37 QT: 337 QTc: 453 Interpretive Statements SINUS TACHYCARDIA EARLY PRECORDIAL R/S TRANSITION NONSPECIFIC ST & T-WAVE ABNORMALITY- ANTEROLAT/INF LEADS ABNORMAL ECG Electronically Signed On 03-11-2020 16:02:36 CDT by Kannan Quezada D.O.
[2020-03-11 16:28] LABS: Basophils Absolute Auto 0.1 K/mm3 (0.0-0.1); Basophils Percent Auto 0.7 % (0.2-1.2); Eosinophils Absolute Auto 0.4 K/mm3 (0-0.3); Eosinophils Percent Auto 4.7 % (0-4.4); Hematocrit 41.8 % (42.0-52.0); Immature Granulocyte Absolute 0.05 K/mm3 (0.00-0.031); Immature Granulocyte Percent A 0.6 % (0-0.5); Lymphocytes Absolute Auto 1.52 K/mm3 (0.9-3.2); Lymphocytes Percent Auto 16.9 % (18.3-44.2); Mean Corpuscular HGB Conc 33.5 g/dl (32-36); Mean Corpuscular Hemoglobin 29.4 pg (26-34); Mean Corpuscular Volume 87.6 fl (80-100); Monocytes Absolute Auto 0.9 K/mm3 (0.1-0.6); Neutrophils Absolute Auto 6.1 K/mm3 (1.3-6.7); Neutrophils Percent Auto 67.1 % (45.5-73.1); Platelet Count Result 351 k/mm3 (150-375); Red Blood Count 4.77 M/mm3 (4.6-6.20); Red Cell Distribution Width 13.9 % (11.5-14.5)
[2020-03-11 16:40] LABS: D Dimer 2.81 ug/mL (<0.48)
[2020-03-11 16:41] LABS: Alanine Aminotransferase 25 U/L (4-50); Albumin Level 4.3 g/dL (3.5-5.1); Alkaline Phosphatase 92 U/L (38-126); Aspartate Amino Transferase 23 U/L (17-59); Bilirubin,Total 0.2 mg/dL (0.2-1.3); Blood Urea Nitrogen 14 mg/dL (9-20); Calcium 9.8 mg/dL (8.4-10.2); Carbon Dioxide 23 mmol/L (22-30); Chloride 103 mmol/L (98-107); Estimated CRCL calculation 105 ml/min; Estimated Glomerular Filt Rate > 60; Glucose 130 mg/dL (75-110); Potassium 3.6 mmol/L (3.4-5.0); Sodium 138 mmol/L (137-145)
--- NOTE | 2020-03-11 16:48 | ED.SOB ---
HPI - SOB/Dyspnea General Chief Complaint: Shortness of Breath/Dyspnea Stated Complaint: Possible blood clot in lung and leg Time Seen by Provider: 03/11/20 15:41 History of Present Illness HPI Narrative: Patient is a 65-year-old male who presents ER with shortness of breath. Patient had a cholecystectomy on 03/07/2020. Dyspnea is worse with walking around. He also catches his breath because he is having abdominal discomfort from the incisions to his abdomen. No fever/chills/sweats. He has had some productive cough. He also reports is left lower extremity he has been having an intermittent burning sensation to the thigh. It improves if he externally rotates at the hip and flexes at the knee. No lower back pain or trauma. No edema. Related Data Home Medications Medication Instructions Recorded Confirmed amlodipine 5 mg PO DAILY 03/05/20 03/05/20 fenofibrate 160 mg PO DAILY 03/05/20 03/05/20 hydrocodone-acetaminophen 1 tablet PO PRN PRN 03/05/20 03/05/20 hydroxyzine pamoate 50 mg PO QID 03/05/20 03/05/20 losartan-hydrochlorothiazide 1 tablet PO DAILY 03/05/20 03/05/20 sertraline 100 mg PO BID 03/05/20 03/05/20 Allergies Allergy/AdvReac Type Severity Reaction Status Date / Time No Known Allergies Allergy Verified 03/05/20 18:29 Review of Systems Review of Systems: All systems reviewed & are unremarkable except as noted in HPI and below Constitutional: Constitutional: Denies chills, Denies fatigue and Denies fever(s) Cardiovascular: Cardiovascular: Denies chest pain and Denies chest pain with activity Respiratory: Respiratory: Reports change in phlegm color, Reports cough, Denies pain on inspiration and Reports dyspnea on exertion Gastrointestinal: Gastrointestinal: Reports abdominal pain, Denies GI cramping, Denies diarrhea, Denies nausea and Denies vomiting Musculoskeletal: Musculoskeletal: Denies back pain [facility] Past Medical History Medical History (Updated 03/11/20 @ 19:31 by Nitin Espinoza MD) Anxiety Cholelithiasis and acute cholecystitis with obstruction (~03/05/20) GERD (gastroesophageal reflux disease) H/O: HTN (hypertension) Heart murmur History of heart attack Hx of migraines Hx of rotator cuff tear Hypercholesteremia Hypertension Morbid obesity due to excess calories JV (obstructive sleep apnea) Type 2 diabetes mellitus Surgical History Surgical History Hx of cardiac cath Hx of rotator cuff surgery Right rotator cuff Hx of spinal fusion Social History Social History Social History: The patient tells me that he quit smoking about 14 years ago. He lives with his who is the durable power hydrometeorological technician for healthcare. Patient desires to be a full code. He has 1 child that is a son. He is disabled. He quit drinking alcohol about 30 years ago. No marijuana or illicit drugs. Smoking packs per day: 3 Smoking cigarettes per day: 60.0 Years smoked: 34 Smoking pack-years: 102.00 Smoking status: Former smoker Tobacco type: cigarettes Alcohol intake: former Substance use: former Last use: 2005 Gender identity (if verbalized by the patient): Male Spiritual care concerns: No Agree to blood products: Yes Exam Narrative: Exam Narrative: GENERAL: Uncomfortable-appearing, obese, and in no acute distress. HEAD: Normocephalic, atraumatic. ENT: Mucous membranes moist. NECK: Supple. CHEST: Clear to auscultation. No respiratory distress. HEART: Tachycardic and regular. Normal peripheral pulses. ABDOMEN: Soft, mild tenderness right mid abdominal wall over the incisions, nondistended. Incisions are well healing and intact. No cellulitis to abdominal wound. Back: No midline tenderness thoracic or lumbar spine. Mild right paraspinal muscular tenderness near L5 but no left there is no muscular tenderness. EXTREMITIES: Normal range of motion/strength in the left lo
[2020-03-11] MEDS: MORPHINE SULFATE 4 MG/ML INJ IV PUSH (16:53)
[2020-03-11 16:54] VITALS: BP 171/87; PULSE 108; RESP 18; O2SAT 95
--- NOTE | 2020-03-11 17:08 | PC.NURSE ---
patient refused abgs
--- NOTE | 2020-03-11 17:19 | PCRCNOTE ---
Pt refused ABGS
[2020-03-11 19:14] VITALS: BP 156/97; PULSE 98; RESP 20; O2SAT 99
== END 2020-03-11 19:44 | disposition home or self-care (01) ==
PROVIDERS: Emergency Provider Emergency Medicine; PCP Family Medicine
DX: G89.18 Other acute postprocedural pain (principal); R10.9 Unspecified abdominal pain; R20.2 Paresthesia of skin; I10 Essential (primary) hypertension; I25.2 Old myocardial infarction; E78.00 Pure hypercholesterolemia, unspecified; G47.33 Obstructive sleep apnea (adult) (pediatric); E11.9 Type 2 diabetes mellitus without complications; K21.9 Gastro-esophageal reflux disease without esophagitis; E66.01 Morbid (severe) obesity due to excess calories; Z68.38 Body mass index [BMI] 38.0-38.9, adult; Z98.1 Arthrodesis status; R00.0 Tachycardia, unspecified; R94.31 Abnormal electrocardiogram [ECG] [EKG]
CPT/HCPCS: 36415; 71275; 80053; 85025; 85380; 93005; 93971; 96374; 99284; J2270; Q9967

== ENCOUNTER 2020-07-17 13:50 | Outpatient (CLI) | payer MEDICARE, SELFPAY ==
--- NOTE | ~2020-07-17 | MR_ITS ---
EXAMINATION: MR cervical spine wo/w con EXAM DATE: 07/17/2020 15:00 INDICATION: Abnormal gait and mobility TECHNIQUE: Multi-sequential, multiplanar MR images of the cervical spine were obtained without contra st. Axial T2, axial T2 MERGE sequence. Sagittal T1, T2, T2 fat saturation images also obtained. Axi al T1 weighted sequence. Patient was then injected with 20 mL Multihance intravenous contrast and re imaged. Postcontrast axial and sagittal T1-weighted fat saturation sequences were obtained. There ar e no prior studies for comparison. FINDINGS: There is anterior cervical fusion and interbody fusion C5-7. Moderate loss of the C4-5 dis c height with 2 mm retrolisthesis, mild to moderate loss at C3-4. The spinal cord signal intensity an d intrinsic morphology is normal. Cervicomedullary junction is normal in appearance. There are no shirley picious marrow signal abnormalities. Paraspinal soft tissue is unremarkable. There are no areas of ab normal enhancement on the post contrast images. Level by level evaluation: C2-C3: Disc does not extend beyond the endplate margin. Uncovertebral joint arthropathy: None. Facet joint arthropathy: Mild bilateral. Neural foraminal stenosis: No stenosis. Central canal stenosis: No stenosis. C3-C4: There is a mild to moderate diffuse disc bulge. Mild cord flattening anteriorly without edema . Uncovertebral joint arthropathy: Moderate to severe bilateral. Facet joint arthropathy: Moderate right, mild to moderate left. Neural foraminal stenosis: Moderate to severe left, moderate right. Central canal stenosis: Mild. C4-C5: There is a mild to moderate diffuse disc bulge. Some flattening of the spinal cord without deny ma. Uncovertebral joint arthropathy: Moderate bilateral. Facet joint arthropathy: Moderate to severe bilateral. Neural foraminal stenosis: Moderate left, mild to moderate right. Central canal stenosis: Mild to moderate . Central canal measures 6-7 mm in mid sagittal AP diameter . C5-C6: This level is fused. Uncovertebral joint arthropathy: Fused. Facet joint arthropathy: Fused. Neural foraminal stenosis: Mild right. Central canal stenosis: No stenosis. C6-C7: This level is fused. Uncovertebral joint arthropathy: Mild to moderate bilateral. Facet joint arthropathy: Mild. Neural foraminal stenosis: No stenosis. Central canal stenosis: No stenosis. C7-T1: There is a mild diffuse disc bulge. Uncovertebral joint arthropathy: Mild to moderate left, mild right. Facet joint arthropathy: Mild to moderate left, mild right. Neural foraminal stenosis: No stenosis. Central canal stenosis: No stenosis. IMPRESSION: 1. Cervical fusion C5-7. 2. Left C3-4 and 4-5 neural foramen most narrowed on exam. 3. Mild to moderate canal stenosis at C4-5 with some cord flattening but no edema, no acute compress ion. Reviewed, dictated and finalized at location A. IMPRESSION: 1. Cervical fusion C5-7. 2. Left C3-4 and 4-5 neural foramen most narrowed on exam. 3. Mild to moderate canal stenosis at C4-5 with some cord flattening but no ed edd, no acute compression.
[2020-07-17 14:20] LABS: Estimated Glomerular Filt Rate > 60
== END 2020-07-17 13:51 | disposition home or self-care (01) ==
PROVIDERS: PCP Family Medicine; Visit Provider Psychiatry & Neurology Neurology
DX: R26.89 Other abnormalities of gait and mobility (principal); Z98.1 Arthrodesis status; M48.02 Spinal stenosis, cervical region
CPT/HCPCS: 72156; A9577

== ENCOUNTER 2021-02-17 14:11 | Emergency (ER) | payer MEDICARE, SELFPAY ==
--- NOTE | ~2021-02-17 | XR_ITS ---
XR foot RT min 3V DATE: 02/17/2021 19:00 INDICATION: Pain after walking. Possible first metatarsophalangeal area foreign body. TECHNIQUE: 4 views COMPARISON: None FINDINGS: Prominent plantar and posterior calcaneal enthesopathy. No fracture or dislocation, periosteal reaction or bone destruction. Mild osteoarthritis at the first metatarsophalangeal joint. IMPRESSION: Prominent plantar and posterior calcaneal enthesopathy Mild osteoarthritis at first metatarsophalangeal joint No radiopaque foreign body is identified Reviewed, dictated and finalized at location A.
[2021-02-17 14:31] VITALS: BP 136/89; PULSE 79; RESP 18; TEMP 36.6; O2SAT 98
[2021-02-17 16:50] VITALS: BP 153/90; PULSE 80; RESP 18; O2SAT 99
--- NOTE | 2021-02-17 18:45 | PC.NURSE ---
to room per w/c, no acute distress; given gown, blanket, call light, given privacy to change
[2021-02-17 19:03] VITALS: BP 139/78; PULSE 94; RESP 19; O2SAT 97
--- NOTE | 2021-02-17 19:10 | PC.NURSE ---
, carin, called. Asked to get update by phone when possible.
[2021-02-17 19:12] LABS: Basophils Absolute Auto 0.1 K/mm3 (0.0-0.1); Basophils Percent Auto 0.6 % (0.2-1.2); Eosinophils Absolute Auto 0.2 K/mm3 (0-0.3); Eosinophils Percent Auto 2.5 % (0-4.4); Hematocrit 46.6 % (42.0-52.0); Hemoglobin 15.5 g/dL (14.0-18.0); Immature Granulocyte Absolute 0.03 K/mm3 (0.00-0.031); Immature Granulocyte Percent A 0.3 % (0-0.5); Lymphocytes Absolute Auto 1.76 K/mm3 (0.9-3.2); Lymphocytes Percent Auto 19.8 % (18.3-44.2); Mean Corpuscular HGB Conc 33.3 g/dl (32-36); Mean Corpuscular Hemoglobin 29.6 pg (26-34); Mean Corpuscular Volume 88.9 fl (80-100); Mean Platelet Volume 8.4 fl (7.4-10.4); Monocytes Absolute Auto 0.7 K/mm3 (0.1-0.6); Neutrophils Absolute Auto 6.1 K/mm3 (1.3-6.7); Neutrophils Percent Auto 68.8 % (45.5-73.1); Platelet Count Result 289 k/mm3 (150-375); Red Blood Count 5.24 M/mm3 (4.6-6.20); Red Cell Distribution Width 14.7 % (11.5-14.5); White Blood Count 8.9 K/mm3 (4.5-10.0)
[2021-02-17 19:22] LABS: Anion Gap 7 mmol/L (8-16); Blood Urea Nitrogen 14 mg/dL (9-20); Calcium 9.3 mg/dL (8.4-10.2); Carbon Dioxide 30 mmol/L (22-30); Chloride 102 mmol/L (98-107); Estimated CRCL calculation 103 ml/min; Estimated Glomerular Filt Rate > 60; Glucose 98 mg/dL (75-110); Potassium 4.4 mmol/L (3.4-5.0); Sodium 139 mmol/L (137-145)
--- NOTE | 2021-02-17 19:29 | ED.WOUNDLAC ---
HPI - Wound/Laceration General Chief Complaint: Wound/Laceration Stated Complaint: foot infection Time Seen by Provider: 02/17/21 18:46 History of Present Illness HPI narrative: Patient is a 66-year-old male who presents ER with right foot pain. Increasing over the last 3 days. Has a nodular region on the plantar aspect of his foot under the first MTP on the right side. No erythema or swelling. No fevers or chills or sweats. No known trauma. Does not believe he stepped on anything. There is coarse scabbing over the area. No drainage. Related Data Home Medications Medication Instructions Recorded Confirmed amlodipine 5 mg PO DAILY 03/05/20 04/04/20 fenofibrate 160 mg PO DAILY 03/05/20 04/04/20 hydroxyzine pamoate 50 mg PO QID 03/05/20 04/04/20 losartan-hydrochlorothiazide 1 tablet PO DAILY 03/05/20 04/04/20 sertraline 100 mg PO BID 03/05/20 04/04/20 Allergies Allergy/AdvReac Type Severity Reaction Status Date / Time No Known Allergies Allergy Verified 02/17/21 19:07 Review of Systems Constitutional: Constitutional: Denies chills, Denies fever(s) and Denies weakness Musculoskeletal: Musculoskeletal: Denies arthralgias, Denies joint swelling and Denies muscle cramps Comments: Right foot pain Integumentary/Breasts: Skin/Breast: Denies pruritus, Denies erythema and Denies skin ulcer PMFSH Past Medical History Medical History (Updated 02/17/21 @ 20:22 by Nitin Espinoza MD) Anxiety Cholelithiasis and acute cholecystitis with obstruction (~03/05/20) GERD (gastroesophageal reflux disease) H/O: HTN (hypertension) Heart murmur History of heart attack Hx of migraines Hx of rotator cuff tear Hypercholesteremia Hypertension Morbid obesity due to excess calories JV (obstructive sleep apnea) Type 2 diabetes mellitus Surgical History Surgical History Hx of cardiac cath Hx of rotator cuff surgery Right rotator cuff Hx of spinal fusion Family History Family History Mother Acute myocardial infarction Father Acute myocardial infarction Sibling Prostate carcinoma Social History Social History Social History: The patient tells me that he quit smoking about 14 years ago. He lives with his who is the durable power machining manager for healthcare. Patient desires to be a full code. He has 1 child that is a son. He is disabled. He quit drinking alcohol about 30 years ago. No marijuana or illicit drugs. Smoking packs per day: 3 Smoking cigarettes per day: 60.0 Years smoked: 34 Smoking pack-years: 102.00 Smoking status: Former smoker Tobacco type: cigarettes Alcohol intake: former Substance use: former Last use: 2005 Gender identity (if verbalized by the patient): Male Spiritual care concerns: No Agree to blood products: Yes Exam Narrative: Exam Narrative: GENERAL: Well-appearing, obese, and in no acute distress. HEAD: Normocephalic, atraumatic. HEART: Regular rate and rhythm. Normal peripheral pulses. EXTREMITIES: Right lower extremity with trace edema. Normal pulses. There is a 1 cm x 1.5 cm callus over the plantar aspect of the foot at the first MTP. Is tender to touch. No fluctuance or evidence of cellulitis. SKIN: Warm, dry, no rash. NEURO: Alert and oriented x3. PSYCH: Normal mood and affect. Course Course Emergency Course: X-ray negative for foreign body. Unremarkable lab results. Could reflect early infection despite negative blood work. Will be placed on antibiotics and given pain control for home. Recommend follow-up with podiatry for further treatment evaluation. Patient verbalized understanding of treatment plan. It seems unlikely a plantars wart would develop that quickly. Vital Signs Vital signs: Vital Signs Temperature 97.9 F 02/17/21 14:31 Pulse Rate 79 02/17/21 14:31 Respira
[2021-02-17 20:02] VITALS: BP 142/78; PULSE 72; RESP 18; O2SAT 99
[2021-02-17 20:46] VITALS: BP 121/70; PULSE 72; RESP 18
== END 2021-02-17 20:37 | disposition home or self-care (01) ==
PROVIDERS: Emergency Provider Emergency Medicine; PCP Family Medicine
DX: M79.671 Pain in right foot (principal); R22.9 Localized swelling, mass and lump, unspecified; F41.9 Anxiety disorder, unspecified; K21.9 Gastro-esophageal reflux disease without esophagitis; I10 Essential (primary) hypertension; I25.2 Old myocardial infarction; E78.5 Hyperlipidemia, unspecified; E11.9 Type 2 diabetes mellitus without complications
CPT/HCPCS: 36415; 73630; 80048; 85025; 99283

== ENCOUNTER 2022-12-04 21:30 | Emergency (ER) | payer MEDICARE, SELFPAY ==
[2022-12-04] VITALS (16 sets, daily range): BP systolic 109–140; BP diastolic 59–94; PULSE 78–101; RESP 12–24; TEMP 36.6; O2SAT 94–98
--- NOTE | ~2022-12-04 | XR_ITS ---
XR chest 2V 12/04/2022 22:22 Indication: Shortness of breath. Procedure: 2 view chest Comparison: Comparison to multiple prior studies sequentially, with oldest reviewed study dated 02/2008. Findings: Heart size normal. Multiple healed left rib fractures. Calcified granuloma left lung base. No focal air space disease, pulmonary edema, pleural effusion or suspected pneumothorax. Impression: 1: No acute cardiopulmonary disease. Reviewed, dictated and finalized at location A. LINER Impression: 1: No acute cardiopulmonary disease.
--- NOTE | ~2022-12-04 | CT_ITS ---
EXAMINATION: CT brain wo con DATE: 12/04/2022 23:15 INDICATION: Dizziness. Lightheadedness. TECHNIQUE: Computed tomography (CT) of the head was performed without intravenous contrast. The dose- length product was 681.00 mGy-cm. Automated exposure control and iterative reconstruction technique w ere employed. COMPARISON: CT dated 10/25/2019 FINDINGS: Mild generalized atrophy. There are scattered mild periventricular and subcortical white ma tter changes, most likely related to small vessel ischemic disease (microangiopathy). No acute intrac ranial hemorrhage, infarction, mass or mass effect. No ventriculomegaly or midline shift. Basilar cis terns are patent. There is mucosal thickening of the maxillary sinuses. Mastoids are pneumatized. No depressed skull fractures. There is intracranial atherosclerosis. IMPRESSION: 1. No acute intracranial abnormality. Reviewed, dictated and finalized at location A. IMEDIA TEACHER
--- NOTE | 2022-12-04 21:48 | ECG_ITS ---
Measurements Intervals [place] Rate: 93 P: 59 [place]: 151 QRS: 19 QRSD: 97 T: 57 QT: 349 QTc: 434 Interpretive Statements SINUS RHYTHM INCOMPLETE RIGHT BUNDLE BRANCH BLOCK NONSPECIFIC T-WAVE ABNORMALITY- DIFFUSE LEADS BASELINE ARTIFACT- I, II, III, AVR, AVL, AVF, V3-V6 BORDERLINE ECG COMPARED TO ECG 03/11/2020 15:50:54 SINUS RHYTHM NOW PRESENT Electronically Signed On 12-05-2022 7:40:26 BINDERY SUPERVISOR by Kannan Quezada D.O.
--- NOTE | 2022-12-04 22:01 | ED.SOB ---
HPI - SOB/Dyspnea General Chief Complaint: Shortness of Breath/Dyspnea <ALBERTO Funez Last Filed: 12/05/22 03:48> Stated Complaint: Shortness of Breath, Neck Pain, Dizziness <ALBERTO Funez Last Filed: 12/05/22 03:48> Time Seen by Provider: 12/04/22 21:47 <ALBERTO Funez Last Filed: 12/05/22 03:48> Source: patient <ALBERTO Funez Last Filed: 12/05/22 03:48> Mode of arrival: ambulatory <ALBERTO Funez Last Filed: 12/05/22 03:48> Limitations: no limitations <ALBERTO Funez Last Filed: 12/05/22 03:48> History of Present Illness HPI Narrative: This is a 67 year old male that presents to the ER for anxiety. Reports he has feelings of butterflies in his stomach, difficulty catching his breath, and lightheadedness. He does take anxiety medication. He has been taking his medications as prescribed. Also reports chronic back pain. Denies chest pain or lower extremity edema. <ALBERTO Funez Last Filed: 12/05/22 03:48> Related Data Home Medications: Home Medications Medication Instructions Recorded Confirmed amlodipine 5 mg tablet 5 mg PO DAILY 03/05/20 04/04/20 fenofibrate 160 mg tablet 160 mg PO DAILY 03/05/20 04/04/20 hydroxyzine pamoate 50 mg capsule 50 mg PO QID 03/05/20 04/04/20 losartan 100 1 tablet PO DAILY 03/05/20 04/04/20 mg-hydrochlorothiazide 12.5 mg tablet sertraline 100 mg tablet 100 mg PO BID 03/05/20 04/04/20 <ALBERTO Funez Last Filed: 12/05/22 03:48> Allergies/Adverse Reactions: Allergies Allergy/AdvReac Type Severity Reaction Status Date / Time No Known Allergies Allergy Verified 12/04/22 21:42 <ALBERTO Funez Last Filed: 12/05/22 03:48> Review of Systems Review of Systems: CONSTITUTIONAL: Denies fever CARDIOVASCULAR: Denies chest pain, or edema. RESPIRATORY: Reports dyspnea. Denies cough GASTROINTESTINAL: Denies abdominal pain, nausea, vomiting SKIN: Denies rash MUSCULOSKELETAL: Reports back pain, joint pain, and myalgia. NEUROLOGIC: Denies numbness, or weakness. PSYCHIATRIC: Reports anxiety <Bren Khan PA-C - Last Filed: 12/05/22 03:48> All systems reviewed & are unremarkable except as noted in HPI and below <Bren Khan PA-C - Last Filed: 12/05/22 03:48> [facility] Past Medical History Medical History: Medical History (Updated 12/06/22 @ 00:00 by [facility]) Anxiety Cholelithiasis and acute cholecystitis with obstruction (~03/05/20) GERD (gastroesophageal reflux disease) H/O: HTN (hypertension) Heart murmur History of heart attack Hx of migraines Hx of rotator cuff tear Hypercholesteremia Hypertension Morbid obesity due to excess calories JV (obstructive sleep apnea) Type 2 diabetes mellitus <ALBERTO Funez Last Filed: 12/05/22 03:48> Surgical History Surgical History: Surgical History Hx of cardiac cath Hx of rotator cuff surgery Right rotator cuff Hx of spinal fusion <Bren Khan PA-C - Last Filed: 12/05/22 03:48> Family History Family History: Family History Mother Acute myocardial infarction Father Acute myocardial infarction Sibling Prostate carcinoma <ALBERTO Funez Last Filed: 12/05/22 03:48> Social History Social History: Social History Social History: The patient tells me that he quit smoking about 14 years ago. He lives with his who is the durable power steward/stewardess chief cargo vessel for healthcare. Patient desires to be a full code. He has 1 child that is a son. He is disabled. He quit drinking alcohol about 30 years ago. No marijuana or illicit drugs. Smoking packs per day: 3 Smoking cigarettes per day: 60.0 Years smoked: 34 Smoking pack-years: 102.00 Smoking status: Former smoker Tobacco type:
[2022-12-04 22:06] LABS: Basophils Absolute Auto 0.1 K/mm3 (0.0-0.1); Basophils Percent Auto 0.8 % (0.2-1.2); Eosinophils Absolute Auto 0.3 K/mm3 (0-0.3); Eosinophils Percent Auto 3.4 % (0-4.4); Hematocrit 43.5 % (42.0-52.0); Immature Granulocyte Absolute 0.08 K/mm3 (0.00-0.031); Immature Granulocyte Percent A 0.8 % (0-0.5); Lymphocytes Percent Auto 22.9 % (18.3-44.2); Mean Corpuscular HGB Conc 34.5 g/dl (32-36); Mean Corpuscular Hemoglobin 30.4 pg (26-34); Mean Corpuscular Volume 88.2 fl (80-100); Mean Platelet Volume 9.5 fl (7.4-10.4); Monocytes Absolute Auto 1.2 K/mm3 (0.1-0.6); Monocytes Percent Auto 12.1 % (2.6-8.5); Neutrophils Absolute Auto 5.8 K/mm3 (1.3-6.7); Platelet Count Result 330 k/mm3 (150-375); Red Blood Count 4.93 M/mm3 (4.6-6.20); Red Cell Distribution Width 14.8 % (11.5-14.5); White Blood Count 9.6 K/mm3 (4.5-10.0)
--- NOTE | 2022-12-04 22:09 | PC.NURSE ---
Patient taken to xray via stretcher.
[2022-12-04] MEDS: LORazepam (*CRX) 0.5 MG TABLET PO (22:22)
[2022-12-04 22:41] LABS: INR 1.1; Prothrombin Time 13.4 Seconds (11.1-14.7)
[2022-12-04 22:42] LABS: Alanine Aminotransferase 20 U/L (6-50); Albumin Level 4.3 g/dL (3.5-5.1); Alkaline Phosphatase 120 U/L (38-126); Anion Gap 9 mmol/L (8-16); Aspartate Amino Transferase 19 U/L (17-59); Bilirubin,Total 0.3 mg/dL (0.2-1.3); Blood Urea Nitrogen 25 mg/dL (9-20); Calcium 8.9 mg/dL (8.4-10.2); Carbon Dioxide 26 mmol/L (22-30); Chloride 100 mmol/L (98-107); Estimated CRCL calculation 103 ml/min; Estimated Glomerular Filt Rate > 60; Glucose 169 mg/dL (65-110); Partial Thromboplastin Time 25.7 SECONDS (22.3-36.8); Potassium 3.2 mmol/L (3.4-5.0); Sodium 135 mmol/L (137-145)
[2022-12-04 22:54] LABS: NT Pro B Type Natriuretic Pept 43 pg/mL (19.9-100); Troponin I < 0.012 ng/mL (0.000-0.034)
[2022-12-04] MEDS: SODIUM CHLORIDE 0.9% IV 500 ML 999 ML IV CONT (22:56)
[2022-12-04 22:57] LABS: D Dimer 0.35 ug/mL (<0.48)
--- NOTE | 2022-12-04 23:52 | PC.NURSE ---
Patient refuses PO tylenol, states I take 1500mg of vicodin at home, that isn't going to do anything for me. Patient states no I don't want that, when asked if he wants to try the po ordered tylenol. ERP notified.
[2022-12-05 00:57] LABS: Magnesium 1.8 mg/dL (1.6-2.3)
[2022-12-05] MEDS: MECLIZINE HCL 25 MG TABLET PO (01:30)
[2022-12-05] MEDS: ONDANSETRON INJ 4 MG/2 ML VIAL IV PUSH (01:30)
[2022-12-05] MEDS: POTASSIUM CHLORIDE 20 MEQ PACKET (FOR LIQUID) 40 MEQ PO (01:31)
[2022-12-05 01:45] VITALS: PULSE 75; RESP 18; O2SAT 97
[2022-12-05 01:46] LABS: Hemoglobin A1C 5.7 % (<5.7)
[2022-12-05] MEDS: HYDROcodone/acetaminophen (*CRX) 5-325 MG TABLET 1 TAB PO (01:53)
== END 2022-12-05 04:47 | disposition home or self-care (01) ==
PROVIDERS: Physician Assistant; Emergency Provider Emergency Medicine; PCP Family Medicine
DX: F41.9 Anxiety disorder, unspecified (principal); E87.6 Hypokalemia; E86.0 Dehydration; R06.09 Other forms of dyspnea; I10 Essential (primary) hypertension; I25.2 Old myocardial infarction; E78.00 Pure hypercholesterolemia, unspecified; E11.9 Type 2 diabetes mellitus without complications; K21.9 Gastro-esophageal reflux disease without esophagitis; G47.33 Obstructive sleep apnea (adult) (pediatric); E66.01 Morbid (severe) obesity due to excess calories; Z68.38 Body mass index [BMI] 38.0-38.9, adult; Z98.1 Arthrodesis status; Z87.891 Personal history of nicotine dependence; I45.10 Unspecified right bundle-branch block; R94.31 Abnormal electrocardiogram [ECG] [EKG]
CPT/HCPCS: 36415; 70450; 71046; 80053; 83036; 83735; 83880; 84484; 85025; 85380; 85610; 85730; 93005; 96361; 96374; 99284; A9270; J2405; J7040

== ENCOUNTER 2022-12-14 11:04 | Outpatient (CLI) | payer MEDICARE, SELFPAY ==
--- NOTE | ~2022-12-14 | XR_ITS ---
EXAMINATION:XR_[id number]_CR DATE: 12/14/2022 11:35 INDICATION: Neck pain TECHNIQUE: AP, lateral, lateral swimmers and odontoid views of the cervical spine are provided. COMPARISON: None FINDINGS: There are changes of anterior fusion from C5 through C7. Alignment is normal. The odontoid process is intact. No fracture is identified. The vertebral body heights are normal. There is moderat e loss of intervertebral disc space height at C4. There is moderate facet and uncovertebral joint ost eoarthritis at C3-4 and C4-5. Prevertebral soft tissues are normal. IMPRESSION: 1. Mild to moderate cervical spondylosis without acute findings. Reviewed, dictated and finalized at location L. R BUSINESS DEVELOPER
== END 2022-12-14 11:05 | disposition home or self-care (01) ==
PROVIDERS: PCP Family Medicine
DX: M54.2 Cervicalgia (principal); M47.812 Spondylosis without myelopathy or radiculopathy, cervical region
CPT/HCPCS: 72040

== ENCOUNTER 2022-12-16 12:08 | Emergency (ER) | payer MEDICARE, SELFPAY ==
[2022-12-16] VITALS (15 sets, daily range): BP systolic 126–159; BP diastolic 82–96; PULSE 78–102; RESP 15–21; TEMP 36.6; O2SAT 95–100
--- NOTE | ~2022-12-16 | XR_ITS ---
Clinical Indication: Shortness of breath PA and lateral views of the chest: Comparison: 12/04/2022 Findings: Stable prominent calcified left basilar granuloma. The lungs are otherwise clear, without e vidence of focal consolidation or pleural effusion. Cardiomediastinal silhouette is within normal li mits. Bones and soft tissues are unremarkable. Impression: No acute abnormality. Reviewed, dictated and finalized at location M. 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
--- NOTE | ~2022-12-16 | XR_ITS ---
EXAMINATION: XR hand LT min 3V DATE: 12/16/2022 17:44 INDICATION: Left hand bruising post fall TECHNIQUE: Posteroanterior, oblique and lateral views of the left hand were obtained. COMPARISON: None. FINDINGS: Bone alignment is normal. No fracture. Polyarticular osteoarthritis, mild to moderate at the first me tacarpophalangeal joint and mild at the distal radioulnar, midcarpal, first carpometacarpal, second m etacarpophalangeal and multiple predominantly distal interphalangeal joints. Tiny radiopaque foreign body near the skin surface at the ulnar aspect of the distal forearm. IMPRESSION: 1. No acute osseous abnormality. 2. Polyarticular osteoarthritis, mild to moderate severity at the first metacarpophalangeal joint and otherwise mild. Reviewed, dictated and finalized at location A. ER SOUND IMPRESSION: 1. No acute osseous abnormality. 2. Polyarticular osteoarthritis, mild to moderate severity at the first metacar pophalangeal joint and otherwise mild.
--- NOTE | 2022-12-16 12:29 | ECG_ITS ---
Measurements Intervals [place] Rate: 94 P: 50 MD: 151 QRS: 5 QRSD: 84 T: 40 QT: 355 QTc: 446 Interpretive Statements SINUS RHYTHM COMPARED TO ECG 12/04/2022 21:56:50 NO SIGNIFICANT CHANGES Electronically Signed On 12-16-2022 15:48:17 [employer] FLOWERS D[employer]ER by Emilia Nick M.D.
[2022-12-16 12:39] LABS: Basophils Absolute Auto 0.1 K/mm3 (0.0-0.1); Basophils Percent Auto 0.5 % (0.2-1.2); Eosinophils Absolute Auto 0.2 K/mm3 (0-0.3); Eosinophils Percent Auto 2.4 % (0-4.4); Hematocrit 43.6 % (42.0-52.0); Hemoglobin 14.6 g/dL (14.0-18.0); Immature Granulocyte Absolute 0.06 K/mm3 (0.00-0.031); Immature Granulocyte Percent A 0.6 % (0-0.5); Lymphocytes Absolute Auto 1.83 K/mm3 (0.9-3.2); Lymphocytes Percent Auto 18.1 % (18.3-44.2); Mean Corpuscular HGB Conc 33.5 g/dl (32-36); Mean Corpuscular Hemoglobin 30.1 pg (26-34); Mean Corpuscular Volume 89.9 fl (80-100); Mean Platelet Volume 8.8 fl (7.4-10.4); Monocytes Absolute Auto 0.8 K/mm3 (0.1-0.6); Monocytes Percent Auto 7.8 % (2.6-8.5); Neutrophils Absolute Auto 7.1 K/mm3 (1.3-6.7); Neutrophils Percent Auto 70.6 % (45.5-73.1); Platelet Count Result 314 k/mm3 (150-375); Red Blood Count 4.85 M/mm3 (4.6-6.20); Red Cell Distribution Width 14.8 % (11.5-14.5); White Blood Count 10.1 K/mm3 (4.5-10.0)
[2022-12-16 12:50] LABS: Prothrombin Time 12.7 Seconds (11.1-14.7)
[2022-12-16 12:57] LABS: Alanine Aminotransferase 27 U/L (6-50); Albumin Level 4.5 g/dL (3.5-5.1); Alkaline Phosphatase 94 U/L (38-126); Anion Gap 9 mmol/L (8-16); Aspartate Amino Transferase 28 U/L (17-59); Bilirubin,Total 0.4 mg/dL (0.2-1.3); Blood Urea Nitrogen 17 mg/dL (9-20); Calcium 9.2 mg/dL (8.4-10.2); Carbon Dioxide 21 mmol/L (22-30); Chloride 111 mmol/L (98-107); Estimated CRCL calculation 104 ml/min; Estimated Glomerular Filt Rate > 60; Glucose 111 mg/dL (65-110); Potassium 3.8 mmol/L (3.4-5.0); Sodium 141 mmol/L (137-145)
--- NOTE | 2022-12-16 16:47 | ED.SOB ---
HPI - SOB/Dyspnea General Chief Complaint: Shortness of Breath/Dyspnea Stated Complaint: dyspnea Time Seen by Provider: 12/16/22 15:53 Source: patient and old records reviewed Mode of arrival: ambulatory Limitations: no limitations History of Present Illness HPI Narrative: Patient is a 67-year-old male who presents to the ED with multiple complaints. Patient reports having difficulty breathing, worse with laying flat and exertion. He has had the symptoms for a while now and been diagnosed with generalized anxiety disorder. He is currently on sertraline. Patient was seen in the ED for similar symptoms on 12/04, at which point he had a negative work-up. Patient was supposed to follow-up with his primary care doctor today, but states he had his dogs got loose and a piece of fencing fell onto him this morning and he was unable to make it to the appointment. He is supposed to see his doctor again tomorrow. He complains of pain to his left dorsal hand and left lateral thigh from the fence falling on it. Some bruising present to hand. He has been able to ambulate since the incident without pain. Patient also reports having chronic neck and back pain. He sees pain management for this and receives pain injections. Next appointment next Tuesday. He is on [place] and baclofen 3 times a day. Patient denies any chest pain, abdominal pain, nausea, vomiting, lower extremity swelling, numbness, weakness, incontinence, fevers, recent cough or cold sx's. Related Data Home Medications Medication Instructions Recorded Confirmed amlodipine 5 mg tablet 5 mg PO DAILY 03/05/20 04/04/20 fenofibrate 160 mg tablet 160 mg PO DAILY 03/05/20 04/04/20 hydroxyzine pamoate 50 mg capsule 50 mg PO QID 03/05/20 04/04/20 losartan 100 1 tablet PO DAILY 03/05/20 04/04/20 mg-hydrochlorothiazide 12.5 mg tablet sertraline 100 mg tablet 100 mg PO BID 03/05/20 04/04/20 Allergies Allergy/AdvReac Type Severity Reaction Status Date / Time No Known Allergies Allergy Verified 12/04/22 21:42 Review of Systems Review of Systems: CONSTITUTIONAL: Denies fever, chills, or sweats. ENT: Denies rhinorrhea, congestion, sore throat. CARDIOVASCULAR: Denies chest pain, palpitations, or edema. RESPIRATORY: See HPI. GASTROINTESTINAL: Denies incontinence, abdominal pain, nausea, vomiting. GENITOURINARY: Denies incontinence, dysuria or hematuria. SKIN: Denies rash or itching. MUSCULOSKELETAL: See HPI. NEUROLOGIC: Denies headache, numbness, or weakness. PSYCHIATRIC: See HPI. All systems reviewed & are unremarkable except as noted in HPI and below PMFSH Past Medical History Medical History Anxiety Cholelithiasis and acute cholecystitis with obstruction (~03/05/20) GERD (gastroesophageal reflux disease) H/O: HTN (hypertension) Heart murmur History of heart attack Hx of migraines Hx of rotator cuff tear Hypercholesteremia Hypertension Morbid obesity due to excess calories JV (obstructive sleep apnea) Type 2 diabetes mellitus Surgical History Surgical History Hx of cardiac cath Hx of rotator cuff surgery Right rotator cuff Hx of spinal fusion Family History Family History Mother Acute myocardial infarction Father Acute myocardial infarction Sibling Prostate carcinoma Social History Social History Social History: The patient tells me that he quit smoking about 14 years ago. He lives with his who is the durable power litigation attorney associate for healthcare. Patient desires to be a full code. He has 1 child that is a son. He is disabled. He quit drinking alcohol about 30 years ago. No marijuana or illicit drugs. Smoking packs per day: 3 Smoking cigarettes per day: 60.0 Years smoked: 34 Smoking pack-years: 102.00 Smoking sta
[2022-12-16 17:28] LABS: NT Pro B Type Natriuretic Pept 56 pg/mL (19.9-100); Troponin I < 0.012 ng/mL (0.000-0.034)
[2022-12-16 17:57] LABS: D Dimer 0.53 ug/mL (<0.48)
== END 2022-12-16 18:55 | disposition home or self-care (01) ==
PROVIDERS: Emergency Medicine; Emergency Provider Physician Assistant; PCP Family Medicine
DX: F41.9 Anxiety disorder, unspecified (principal); G89.29 Other chronic pain; R06.81 Apnea, not elsewhere classified; M19.90 Unspecified osteoarthritis, unspecified site; K21.9 Gastro-esophageal reflux disease without esophagitis; I10 Essential (primary) hypertension; E11.9 Type 2 diabetes mellitus without complications
CPT/HCPCS: 36415; 71046; 73130; 80053; 83880; 84484; 85025; 85380; 85610; 93005; 99284

== ENCOUNTER 2023-03-14 08:24 | Outpatient (CLI) | payer MEDICARE, SELFPAY ==
[2023-03-14 09:40] LABS: Absolute Eosinophil Count 0.4 K/mm3 (0.0-0.3)
[2023-03-14 09:43] LABS: NT Pro B Type Natriuretic Pept 81 pg/mL (19.9-100)
[2023-03-16 13:13] LABS: NIL 0.04 IU/mL; Quantiferon TB Plus, 1T NEGATIVE (NEGATIVE)
[2023-03-17 23:32] LABS: Immunoglobulin E 140 kU/L (<=114)
[2023-03-18 21:26] LABS: Immunoglobulin G, Serum 1036 mg/dL (600-1540); Immunoglobulin G1 526 mg/dL (382-929); Immunoglobulin G2 347 mg/dL (241-700); Immunoglobulin G3 44 mg/dL (22-178); Immunoglobulin G4 90.2 mg/dL (4.0-86.0)
[2023-03-19 10:27] LABS: Alpha-1-Antitrypsin, QN 199 mg/dL (83-199)
== END 2023-03-14 08:25 | disposition home or self-care (01) ==
PROVIDERS: PCP Family Medicine; Visit Provider Nurse Practitioner
DX: R06.09 Other forms of dyspnea (principal)
CPT/HCPCS: 36415; 82103; 82784; 82785; 82787; 83880; 85048; 86003; 86480

== ENCOUNTER 2023-03-25 10:02 | Outpatient (CLI) | payer MEDICARE, SELFPAY ==
--- NOTE | 2023-03-25 13:55 | WPDPFTINT ---
PFT Procedure Performed PFT Procedure Performed Spirometry with Pre/Post Bronchodilator Plethysmography (Lung Vol) Diffusing Cap (DLCO) Flow Vol Loop PFT Interpretation Lung volumes were measured with the body plethysmography method. Lung volumes are unremarkable. Spirometry showed normal expiratory flow rates and a normal FEV1 to FVC ratio of 71%. Following administration of a bronchodilator there was no significant increase in expiratory flow rates. Lung diffusion capacity is moderately reduced at 47% predicted. The flow-volume loop is unremarkable. Impression: Spirometry and lung volumes within the normal range. Moderately reduced lung diffusion capacity.
== END 2023-03-25 10:03 | disposition home or self-care (01) ==
LOC: ANHPFT 10:03
PROVIDERS: PCP Family Medicine; Visit Provider Nurse Practitioner
DX: R20.2 Paresthesia of skin (principal); R06.09 Other forms of dyspnea
CPT/HCPCS: 94060; 94726; 94729

== ENCOUNTER 2023-03-28 10:12 | Outpatient (CLI) | payer MEDICARE, SELFPAY ==
--- NOTE | ~2023-03-28 | MR_ITS ---
EXAMINATION: MR cervical spine wo con DATE: 03/28/2023 11:05 INDICATION: Neck pain. TECHNIQUE: Magnetic resonance imaging (MRI) of the cervical spine was performed without intravenous c ontrast. Sequences included sagittal T2-weighted FSE, sagittal T2-weighted FS FSE, sagittal T1-weight ed FSE, axial MERGE, and axial T2-weighted FSE. COMPARISON: Cervical spine MRI 07/17/2020 FINDINGS: There is mild kyphosis of cervical spine. Vertebral body heights are normal. There is moder ately decreased disc height at C3-C4 and severely decreased disc height at C4-C5 with endplate remode ling. There are changes of anterior fusion procedure from C5 to C7 with healed interbody bone graft a nd anterior plate and screws. The spinal cord signal intensity is normal. The following disc levels a re specifically discussed: C2-C3: The disc does not extend beyond the endplate margin. There is no uncovertebral joint osteoarth ritis. There is mild bilateral facet joint osteoarthritis. There is no neural foraminal stenosis. The re is no central canal stenosis. C3-C4: The disc is bulging. There is severe bilateral uncovertebral joint osteoarthritis. There is mo derate right and mild left facet joint osteoarthritis. There is mild right and moderate left neural f oraminal stenosis. There is mild central canal stenosis with ventral indentation of the spinal cord. C4-C5: The disc is bulging. There is severe bilateral uncovertebral joint osteoarthritis. There is mo derate bilateral facet joint osteoarthritis. There is moderate bilateral neural foraminal stenosis. T here is mild central canal stenosis with ventral indentation of the spinal cord. C5-C6: There is mild right uncovertebral joint hypertrophy. There is mild right facet joint osteoarth ritis. There is no neural foraminal stenosis. There is no central canal stenosis. C6-C7: There is no uncovertebral joint osteoarthritis. There is no facet joint osteoarthritis. There is no neural foraminal stenosis. There is no central canal stenosis. C7-T1: The disc does not extend beyond the endplate margin. There is no uncovertebral joint osteoarth ritis. There is severe bilateral facet joint osteoarthritis. There is mild bilateral neural foraminal stenosis. There is no central canal stenosis. IMPRESSION: 1. Severe cervical spondylosis, worsened from 07/17/2020. 2. Anterior fusion procedure from C5 to C7. Reviewed, dictated and finalized at location A.
== END 2023-03-28 10:13 | disposition home or self-care (01) ==
PROVIDERS: PCP Family Medicine
DX: M47.892 Other spondylosis, cervical region (principal); Z98.1 Arthrodesis status
CPT/HCPCS: 72141

== ENCOUNTER 2023-04-22 06:44 | Outpatient (CLI) | payer MEDICARE, SELFPAY ==
--- NOTE | ~2023-04-22 | XR_ITS ---
EXAMINATION: XR thoracic spine 2V DATE: 04/22/2023 08:01 INDICATION: Thoracic back pain TECHNIQUE: AP and lateral views of the thoracic spine are obtained. COMPARISON: MRI from today FINDINGS: There are bridging osteophytes at multiple levels in the spine, consistent with diffuse idi opathic skeletal hyperostosis (DISH). Chronic anterior wedging is again noted at T6-T9 and T11. There is no fracture. Vertebral body alignment is maintained. The intervertebral disc space heights are no rmal. A calcified nodule of the left lower lobe is consistent with old granulomatous disease. There a re partially imaged changes of anterior fusion procedure in the lower cervical spine. IMPRESSION: 1. Mild thoracic spondylosis without acute osseous abnormality. 2. Diffuse idiopathic skeletal hyperostosis (DISH). Reviewed, dictated and finalized at location A.
--- NOTE | ~2023-04-22 | MR_ITS ---
EXAMINATION: MR lumbar spine wo con DATE: 04/22/2023 07:45 INDICATION: Back pain. Fusion of spine. TECHNIQUE: Magnetic resonance imaging (MRI) of the lumbar spine was performed without intravenous con trast. COMPARISON: Lumbar spine MRI 01/03/2010, radiographs 04/22/2023 FINDINGS: Bone alignment is normal. There are changes of anterior and posterior fusion procedures at L5-S1 with healed interbody bone graft and pedicle screws. There is mild chronic anterior wedging of L1 vertebral body. There are Schmorl's nodes from T11-T12 through L2-L3. There is moderately decrease d disc height at L4-L5. The distal spinal cord signal intensity is normal. The conus medullaris is at T12-L1. The following disc levels are specifically discussed: L1-L2: The disc does not extend beyond the endplate margin. There is no facet joint osteoarthritis. T here is no neural foraminal stenosis. There is no central canal stenosis. L2-L3: The disc is mildly bulging. There is moderate bilateral facet joint osteoarthritis. There is m ild bilateral neural foraminal stenosis. There is no central canal stenosis. L3-L4: There is a left foraminal protrusion. There is severe bilateral facet joint osteoarthritis. Th ere is mild left neural foraminal stenosis. There is no central canal stenosis. L4-L5: The disc is mildly bulging. There is severe bilateral facet joint osteoarthritis. There is mil d bilateral neural foraminal stenosis. There is mild central canal stenosis. L5-S1: There is mild right facet joint hypertrophy. There is no neural foraminal stenosis. There is n o central canal stenosis. There is posterior decompression. IMPRESSION: 1. Moderate spondylosis at L4-L5 and mild spondylosis at other levels, worsened from 01/03/2010. 2. Anterior and posterior fusion procedures at L5-S1. Reviewed, dictated and finalized at location A.
--- NOTE | ~2023-04-22 | XR_ITS ---
EXAMINATION: XR lumbar spine min 4V DATE: 04/22/2023 08:01 INDICATION: Low back pain TECHNIQUE: Anteroposterior and lateral in neutral, flexion and extension views of the lumbar spine we re obtained. COMPARISON: MRI from today FINDINGS: Bone alignment is normal. There is no fracture. There is no hypermobility with flexion or e xtension. There are changes of anterior and posterior fusion at L5-S1. There is chronic anterior wedg ing of L1. The vertebral body heights are otherwise maintained. There is moderate loss of interverteb ral disc space height at L4-5. Small degenerative osteophytes project from the anterior endplates of multiple vertebral bodies. Calcified atherosclerosis is noted. Surgical clips in the right upper quad rant are likely from prior cholecystectomy. IMPRESSION: 1. Changes of anterior and posterior fusion at L5-S1 and moderate lumbar spondylosis at L4-5 without significant change. Reviewed, dictated and finalized at location A. IMPRESSION: 1. Changes of anterior and posterior fusion at L5-S1 and moderate lumbar spondy losis at L4-5 without significant change.
--- NOTE | ~2023-04-22 | XR_ITS ---
XR cervical spine 4-5V 04/22/2023 08:01 Indication: Neck pain. History of spinal stenosis. Procedure: 4 view cervical spine including flexion/extension Comparison: 12/14/2022 Findings: Status post anterior cervical fusion and discectomy at C5-C7. Straightening of cervical panda dosis. There is disc narrowing at C4-5. No prevertebral soft tissue swelling. No acute fracture or tr aumatic malalignment. Spinal hardware intact. Lung apices are normal. Mild multilevel uncinate hypert rophy. No significant alteration of alignment with flexion or extension views. Impression: 1: Mild-moderate cervical spondylosis without significant interval change. Reviewed, dictated and finalized at location [] Impression: 1: Mild-moderate cervical spondylosis without significant interval change.
--- NOTE | ~2023-04-22 | MR_ITS ---
EXAMINATION: MR thoracic spine wo con DATE: 04/22/2023 07:45 INDICATION: Back pain. Fusion of spine. TECHNIQUE: Magnetic resonance imaging (MRI) of the thoracic spine was performed without intravenous c ontrast. COMPARISON: Thoracic spine radiograph 04/22/2023 FINDINGS: There is kyphosis of cervical spine. There are changes of anterior fusion procedure from C5 to C7. There is mild chronic anterior wedging of T6-T9 and T11 vertebral bodies. There are Schmorl's nodes from T9-T10 through T12-L1. There are bridging endplate osteophytes at multiple levels in the spine, consistent with diffuse idiopathic skeletal hyperostosis (DISH). Intervertebral disc heights a re normal. The discs do not extend beyond the endplate margins. There is multilevel facet joint osteo arthritis, moderate on the left at T6-T7 and and severe on the left at T7-T8. There is mild neural fo raminal stenosis on the left at T6-T7 and T7-T8. No central canal stenosis. The spinal cord signal in tensity is normal. IMPRESSION: 1. Mild thoracic spondylosis. 2. DISH. Reviewed, dictated and finalized at location A.
== END 2023-04-22 06:45 | disposition home or self-care (01) ==
PROVIDERS: PCP Family Medicine; Visit Provider Neurological Surgery
DX: M43.26 Fusion of spine, lumbar region (principal); M47.894 Other spondylosis, thoracic region; M48.14 Ankylosing hyperostosis [Forestier], thoracic region; Z98.1 Arthrodesis status; M47.896 Other spondylosis, lumbar region; M47.892 Other spondylosis, cervical region
CPT/HCPCS: 72050; 72070; 72110; 72146; 72148

== ENCOUNTER 2023-05-31 12:44 | Outpatient (CLI) | payer MEDICARE, SELFPAY ==
--- NOTE | 2023-06-02 14:32 | WPDMETH ---
Methacholine Procedure Perform Procedure Performed Methacholine Challenge Methacholine Challenge Methacholine Challenge: DOS: 05/31/2023 REQUESTING: ARLET Stiles REASON FOR TESTING: dyspnea on exertion METHACHOLINE CHALLENGE A previous study on 03/25/2023 showed normal spirometry. This test was performed and interpreted in cords with the 2017 ERS as technical standard, endorsed by the ATS, using the [employer] equations. Testing was performed with increasing doses of nebulized methacholine following a quadruple in dosage protocol. The methacholine dose was delivered via the [employer] Nebulizer using a 1 minute tidal breathing protocol. The best post -methacholine FEV1 values were used to determine the change from the post dilute FEV1. The delivered dose of methacholine was used to calculate the provocative dose causing a 20% fall in the FEV1 ( PD 20). Findings Baseline FEV1 3.21 L, 87% Post diluent FEV1 3.10 L, 84% Post-1.81 mcg methacholine FEV1 3.19 L, 87% Post-7.26 mcg methacholine FEV1 3.13 L, 85% Post-29.03 mcg methacholine FEV1 2.97 L, 81% Post-116.1 mcg methacholine FEV1 2.63 L, 72% Post-464.4 mcg methacholine FEV1 2.44 L, 67% Post albuterol nebulization FEV1 2.95 L, 80% Impression: The PD20 is 464.4 mcg of methacholine with a 21% drop in the FEV1. The test was stopped after the last dose. A decrease of 20% in the FEV1 is a positive result, and the testing is terminated. Flows returned to normal after bronchodilator was administered. IMPRESSION: This is a positive methacholine challenge with the PD20 464.4 mcg methacholine on the 5th and final dose. The best use for a methacholine challenge is to rule out asthma. Clinical correlation is advised. Precious Medina MD
== END 2023-05-31 12:45 | disposition home or self-care (01) ==
PROVIDERS: PCP Family Medicine; Visit Provider Nurse Practitioner
DX: J45.909 Unspecified asthma, uncomplicated (principal)
CPT/HCPCS: 94070; J7674

== ENCOUNTER 2023-07-12 13:06 | Outpatient (CLI) | payer MEDICARE, SELFPAY ==
--- NOTE | ~2023-07-12 | XR_ITS ---
EXAMINATION:XR_CERV2-3V_CR DATE: 07/12/2023 13:37 INDICATION: Cervical fusion TECHNIQUE: AP, lateral, lateral swimmers and odontoid views of the cervical spine are provided. COMPARISON: 04/22/2023 FINDINGS: Bone alignment is normal. There has been interval anterior fusion from C3 through C5. There are changes of anterior fusion from C5 through C7 with interval removal of the two screws in the upp er part of the plate at C5. The odontoid process is intact. No fracture is identified. The vertebral body heights are normal. There is edema of the prevertebral soft tissues. IMPRESSION: 1. Changes of interval anterior fusion from C3 through C5. 2. Thickening of the prevertebral soft tissues. Findings could be postsurgical in nature if surgery w as recent. In the absence of history of recent surgery, further evaluation with CT would be recommend ed. Reviewed, dictated and finalized at location B. IMPRESSION: 1. Changes of interval anterior fusion from C3 through C5. 2. Thickening of the prevertebral soft tissues. Findings could be postsurgical in nature if surgery was recent. In the absence of history of recent surgery, f urther evaluation with CT would be recommended.
== END 2023-07-12 13:07 | disposition home or self-care (01) ==
PROVIDERS: PCP Family Medicine; Visit Provider Neurological Surgery
DX: Z98.1 Arthrodesis status (principal); M79.89 Other specified soft tissue disorders
CPT/HCPCS: 72040

== ENCOUNTER 2023-09-05 11:56 | Outpatient (CLI) | payer MEDICARE, SELFPAY ==
--- NOTE | ~2023-09-05 | XR_ITS ---
XR_CERV2-3V_CR DATE: 09/05/2023 12:17 INDICATION: Cervical spine fusion TECHNIQUE: AP, open-mouth, lateral views COMPARISON: 07/12/2023 cervical spine FINDINGS: Status post anterior and interbody cervical spine fusion at C3-5 and anterior surgical fusi on at C6-7. C1 and C2 are normally aligned and the odontoid process is intact. No fracture or dislocation or lock ed facet or prevertebral soft tissue swelling is detected. Resolution of prevertebral soft tissue thickening since 07/12/2023. IMPRESSION: Postoperative surgical changes Resolution of prevertebral soft tissue thickening but no other significant change since 07/12/2023 Reviewed, dictated and finalized at Location A. Reviewed, dictated and finalized at location B. IMPRESSION: Postoperative surgical changes Resolution of prevertebral soft tissue thickening but no other significant haji ge since 07/12/2023
== END 2023-09-05 11:57 | disposition home or self-care (01) ==
PROVIDERS: PCP Family Medicine; Visit Provider Neurological Surgery
DX: Z98.1 Arthrodesis status (principal)
CPT/HCPCS: 72040

== ENCOUNTER 2024-04-27 09:39 | Outpatient (CLI) | payer MEDICARE, SELFPAY ==
[2024-04-27 10:05] LABS: Basophils Absolute Auto 0.1 K/mm3 (0.0-0.1); Basophils Percent Auto 0.9 % (0.2-1.2); Eosinophils Absolute Auto 0.2 K/mm3 (0-0.3); Eosinophils Percent Auto 3.1 % (0-4.4); Hematocrit 46.8 % (42.0-52.0); Hemoglobin 15.6 g/dL (14.0-18.0); Immature Granulocyte Absolute 0.03 K/mm3 (0.00-0.031); Immature Granulocyte Percent A 0.5 % (0-0.5); Lymphocytes Absolute Auto 1.34 K/mm3 (0.9-3.2); Lymphocytes Percent Auto 23.2 % (18.3-44.2); Mean Corpuscular HGB Conc 33.3 g/dl (32-36); Mean Corpuscular Hemoglobin 29.3 pg (26-34); Mean Corpuscular Volume 87.8 fl (80-100); Monocytes Absolute Auto 0.5 K/mm3 (0.1-0.6); Neutrophils Absolute Auto 3.7 K/mm3 (1.3-6.7); Neutrophils Percent Auto 63.3 % (45.5-73.1); Platelet Count Result 249 k/mm3 (150-375); Red Blood Count 5.33 M/mm3 (4.6-6.20); Red Cell Distribution Width 15.3 % (11.5-14.5); White Blood Count 5.8 K/mm3 (4.5-10.0)
[2024-04-27 10:16] LABS: Alanine Aminotransferase 17 U/L (6-50); Albumin Level 4.5 g/dL (3.5-5.1); Alkaline Phosphatase 89 U/L (38-126); Anion Gap 9 mmol/L (4-12); Aspartate Amino Transferase 21 U/L (17-59); Bilirubin,Total 0.5 mg/dL (0.2-1.3); Blood Urea Nitrogen 15 mg/dL (9-20); Calcium 9.1 mg/dL (8.4-10.2); Carbon Dioxide 21 mmol/L (22-30); Chloride 109 mmol/L (98-107); Cholesterol 135 mg/dL (0-200); Creatine Kinase 49 U/L (55-170); Estimated Glomerular Filt Rate > 60; Glucose 113 mg/dL (65-110); HDL Direct 46 mg/dL; Potassium 4.1 mmol/L (3.4-5.0); Sodium 139 mmol/L (137-145); Triglycerides 80 mg/dL (<150)
[2024-04-27 10:27] LABS: LDL Cholesterol Direct 78 mg/dL
[2024-04-30 10:53] LABS: PSA, Free 0.3 ng/mL; Percent Free Prostate Spec Ag 30 % (calc) (>25)
== END 2024-04-27 09:40 | disposition home or self-care (01) ==
PROVIDERS: PCP Family Medicine; Visit Provider Physician Assistant
DX: E78.5 Hyperlipidemia, unspecified (principal); Z12.5 Encounter for screening for malignant neoplasm of prostate
CPT/HCPCS: 36415; 80053; 80061; 82550; 84153; 84154; 84443; 85025; G0103

== ENCOUNTER 2024-09-12 10:42 | Outpatient (CLI) | payer MEDICARE, SELFPAY ==
--- NOTE | ~2024-09-12 | XR_ITS ---
EXAMINATION: XR lumbar spine min 4V DATE: 09/12/2024 11:45 INDICATION: Fusion of spine, lumbar region. TECHNIQUE: 4 views of lumbar spine standing including flexion and extension views were obtained. COMPARISON: Lumbar spine radiographs 04/22/23 FINDINGS: Bone alignment is normal. There is mild chronic anterior wedging of L1 vertebral body. Ther e is moderately decreased disc height at L4-L5. There are changes of posterior fusion procedure at L5 -S1 with pedicle screws. There is interbody fusion at L5-S1. The spine is hypomobile with flexion and extension. There is multilevel facet joint osteoarthritis, severe in lower lumbar spine. Surgical cl ips in the right upper quadrant are likely from cholecystectomy. IMPRESSION: 1. Stable moderate lumbar spondylosis. 2. Posterior fusion procedure at L5-S1. Reviewed, dictated and finalized at location A. COREMAKER
--- NOTE | ~2024-09-12 | MR_ITS ---
MRI of the lumbar spine Clinical History: Fusion Technique: Axial T2-weighted images, and sagittal T1-weighted, T2-weighted, and STIR images were acqu ired. COMPARISON: 04/22/2023 Findings: There is posterior fusion from L5 to S1, bilateral rods and transpedicular screws present. There is additional interbody fusion across the L5-S1 disc space. There is posterior decompression at L5. Osseous alignment is stable from prior exam. No acute fracture. No suspicious bone marrow signal reality. At L1-L2, there is moderate to advanced degenerative disc 9. There is minimal disc bulge with moderat e facet arthropathy. No central canal stenosis or neural foraminal narrowing. At L2-L3, there is no disc bulge or herniation. There is moderate to advanced facet arthropathy. No c entral canal stenosis or neural foraminal narrowing. At L3-L4, there is no disc bulge or herniation. There is advanced facet arthropathy. No central canal stenosis or neural foraminal narrowing. L4-L5, there is advanced degenerative disc narrowing with minimal disc bulge and severe facet arthrop athy. No central canal stenosis. There is mild left neural foraminal narrowing. Right neural foramen preserved. At L5-S1, there is no disc bulge or herniation. No canal stenosis. Probable moderate right neural for aminal narrowing. Left neural foramen preserved. Paravertebral soft tissues are unremarkable. Impression: Postfusion changes from L5 to S1, as above. Mild degenerative spondylosis overall, as detailed above. Reviewed, dictated and finalized at [facility]. BER APPRENTICE Impression: Postfusion changes from L5 to S1, as above. Mild degenerative spondylosis overall, as detailed above.
== END 2024-09-12 10:43 | disposition home or self-care (01) ==
PROVIDERS: PCP Physician Assistant; Visit Provider Neurological Surgery
DX: M43.26 Fusion of spine, lumbar region (principal); M43.27 Fusion of spine, lumbosacral region; M43.06 Spondylolysis, lumbar region; Z98.1 Arthrodesis status
CPT/HCPCS: 72110; 72148

== ENCOUNTER 2024-09-30 20:10 | Emergency (ER) | payer MEDICARE, SELFPAY ==
--- NOTE | ~2024-09-30 | XR_ITS ---
EXAMINATION: XR soft tissue neck DATE: 10/01/2024 02:16 INDICATION: Pill in throat. Dysphagia. TECHNIQUE: 2 views the neck soft tissues were obtained. COMPARISON: None. FINDINGS: The adenoids, palatine tonsils, epiglottis, prevertebral soft tissues, and glottis are norm al. There are changes of anterior fusion procedure in cervical spine. IMPRESSION: 1. No radiopaque foreign body. Reviewed, dictated and finalized at location A. NTORY AUDIT CLERK
[2024-09-30 20:20] VITALS: BP 127/84; PULSE 112; RESP 22; TEMP 36.4; O2SAT 96
[2024-09-30 22:39] VITALS: BP 129/77; PULSE 95; RESP 16; TEMP 36.4; O2SAT 94
--- NOTE | 2024-10-01 02:09 | ED_ITS ---
HPI - Skin/Abscess/Foreign Bdy General Chief complaint: Skin/Abscess/Foreign Body Stated complaint: pill stuck in my throat Time Seen by Provider: 10/01/24 01:40 History of Present Illness HPI narrative: 69-year-old male with history of anxiety, GERD, and diabetes. Patient presents to the emergency department as he feels like he has a pill stuck in his throat. He was in his normal state of health but today while he was taking his nightly medications for anxiety he felt a choking sensation and a pill getting stuck in the middle of his throat. He was having some difficulty swallowing pain with swallowing but able to tolerate secretions. No vomiting he is able to tolerate oral liquids. States the pill sensation is still in his throat. Denies any syncope or lightheadedness. No chest pain or difficulty breathing. Otherwise comfortable and speaking clear concise sentences. No respiratory or physical distress. Has not had a like this happened in the past. No recent en doscopies according to the patient. Related Data Home Medications Medication Instructions Recorded Confirmed amlodipine 5 mg tablet 5 mg PO DAILY 03/05/20 04/04/20 fenofibrate 160 mg tablet 160 mg PO DAILY 03/05/20 04/04/20 hydroxyzine pamoate 50 mg capsule 50 mg PO QID 03/05/20 04/04/20 losartan 100 1 tablet PO DAILY 03/05/20 04/04/20 mg-hydrochlorothiazide 12.5 mg tablet sertraline 100 mg tablet 100 mg PO BID 03/05/20 04/04/20 Allergies Allergy/AdvReac Type Severity Reaction Status Date / Time No Known Allergies Allergy Verified 12/04/22 21:42 Review of Systems Review of Systems: As reviewed above in HPI [facility] Past Medical History Medical History (Updated 10/01/24 @ 06:50 by Drake Thompson MD) Anxiety Cholelithiasis and acute cholecystitis with obstruction (~03/05/20) GERD (gastroesophageal reflux disease) H/O: HTN (hypertension) Heart murmur History of heart attack Hx of migraines Hx of rotator cuff tear Hypercholesteremia Hypertension Morbid obesity due to excess calories JV (obstructive sleep apnea) Type 2 diabetes mellitus Surgical History Surgical History Hx of cardiac cath Hx of rotator cuff surgery Right rotator cuff Hx of spinal fusion Family History Family History Mother Acute myocardial infarction Father Acute myocardial infarction Sibling Prostate carcinoma Social History Social History Social History: The patient tells me that he quit smoking about 14 years ago. He lives with his who is the [employer] chair for healthcare. Patient desires to be a full code. He has 1 child that is a son. He is disabled. He quit drinking alcohol about 30 years ago. No marijuana or illicit drugs. Smoking packs per day: 3 Smoking cigarettes per day: 60.0 Years smoked: 34 Smoking pack-years: 102.00 Smoking status: Former smoker Tobacco type: cigarettes Alcohol intake: former Substance use: former Last use: 2005 Living arrangements: with family Gender identity (if verbalized by the patient): Male Spiritual care concerns: No Agree to blood products: Yes Exam Narrative: GENERAL: [Well-appearing, well-nourished, and in no acute distress.] HEAD: [Normocephalic, atraumatic.] EYES: [PERRLA and EOMI.] ENT: Nares clear, no rhinorrhea or epistaxis. Mucous membranes moist. posterior oropharynx without any erythema, irritation or pulling a secretions. No pooling of secretions in the anterior airway. He is speaking in clear sentences. NECK: Supple. CHEST: [Clear to auscultation. No respiratory distress.] HEART: [Regular rate and rhythm]. No murmur heard. [Normal peripheral pulses.] ABDOMEN: [Soft, nondistended], [nontender], [No rigidity or guarding] EXTREMITIES: Normal range of motion. [No edema.] SKIN: Warm, dry, no rash. NEURO: [No focal deficits]. Alert and oriented [x3.] PSYCH: [Normal mood and affect.] Course Vital Signs Vital signs: Vital Signs Temperature 36.4 C 09/30/24 20:20 Pulse Rate 112 H 09/30/24 20:20 Respiratory Rate 22 H 09/30/24 20:20 Blood Pressure 127/84 09/30/24 20:20 Pulse Oximetry 96 09/30/24 20:20 Temperature 36.4 C 09/30/24 22:39 Pulse Rate 99 10/01/24 04:33 Respiratory Rate 16 10/01/24 04:33 Blood Pressure 166/89 H 10/01/24 04:33 Pulse Oximetry 95 10/01/24 04:33 MDM - Skin/Abscess/Foreign Bdy MDM Narrative Medical decision making narrative: 69-year-old male presenting for feel like a foreign body stuck in his throat. He was swallowing his 90 pills when he felt a pill gets stuck in the middle of his throat. Was initially having some difficulty swallowing but is tolerating oral intake including liquids without nausea or vomiting. Still feels the painful sensation in the middle of his throat. No fever, chills, syncope, lightheadedness, chest pain or difficulty in breathing. He was otherwise in his normal state of health. He overall appears well but was slightly tachycardic and tachypneic in triage but this has resolved why he came back to the room. He still has the sensation in his throat but speaks in full sentences, not any distress and his tachycardia and tachypnea have resolved. He is not hypoxic as clear breath sounds bilaterally. Given his chief concern being that he has a pill stuck in his throat with no other potential ingestions or objects we did offer several therapeutic remedies to try and alleviate the sensation including Maalox p.o., glucagon IM and sublingual nitroglycerin dissolved into liquid and made into a slurry for oral ingestion and trying to relax the smooth muscle of his esophagus. X-ray of the soft tissues of the neck was ordered to assess if there is any kind of other foreign body or radiopaque material that can be evident. I workup revealed a slight leukocytosis 16.3 which is likely reactive secondary to the retching that patient had earlier. no active signs of infection or symptoms of infection. Soft tissue x-ray of the neck showed no radiopaque foreign bodies. We have tried multiple therapies here in the emergency department to help him with his globus sensation and sensation of up illness throat including Maalox, intramuscular intravenous glucagon, sublingual nitroglycerin dissolved in water, Pepcid. patient did not have any vomiting here in the emergency department and tolerating all his therapies in secretions as well as able to swallow. Patient still has the sensation in the back of his throat and more likely has a globus sensation at this time given that he swallowed a pill which likely has dissolved at this time. No further interventions necessary at this time and no indications for any kind of endoscopy. I did run the case by Gastroenterology over the phone given that is a potential esophageal issue and they recommended more likely outpatient ENT referral given that it is a proximal sensation rather than distal and no role for an endoscopy at this time. This information was relayed to the patient and he was given discharge instructions as well as ENT referral. Medical Records Attestation: I reviewed the patient's medical records. Lab Data Attestation: I reviewed the patient's lab results. 10/01/24 04:21 10/01/24 04:21 Labs: Lab Results 10/01/24 Range/Units 04:21 WBC 16.3 H (4.5-10.0) K/mm3 RBC 5.03 (4.6-6.20) M/mm3 Hgb 15.3 (14.0-18.0) g/dL Hct 45.1 (42.0-52.0) % MCV 89.7 (80-100) fl MCH 30.4 (26-34) pg MCHC 33.9 (32-36) g/dl RDW 14.6 H (11.5-14.5) % Plt Count 337 (150-375) k/mm3 MPV 8.9 (7.4-10.4) fl Immature Gran % (Auto) 0.8 H (0-0.5) % Neut % (Auto) 79.1 H (45.5-73.1) % Lymph % (Auto) 12.8 L (18.3-44.2) % Howell % (Auto) 6.2 (2.6-8.5) % Eos % (Auto) 0.7 (0-4.4) % Baso % (Auto) 0.4 (0.2-1.2) % Lymph # (Auto) 2.09 (0.9-3.2) K/mm3 Howell # (Auto) 1.0 H (0.1-0.6) K/mm3 Eos # (Auto) 0.1 (0-0.3) K/mm3 Baso # (Auto) 0.1 (0.0-0.1) K/mm3 Abs Immat Gran (auto) 0.13 H (0.00-0.031) K/mm3 Absolute Neuts (auto) 12.9 H (1.3-6.7) K/mm3 Absolute Nucleated RBC 0.000 (0.0-0.012) K/mm3 Nucleated RBC % 0.0 (0.0-0.2) % PT 13.4 (11.1-14.7) Seconds INR 1.0 APTT 24.0 (22.3-36.8) Seconds Sodium 137 (137-145) mmol/L Potassium 3.4 (3.4-5.0) mmol/L Chloride 104 (98-107) mmol/L Carbon Dioxide 22 (22-30) mmol/L Anion Gap 11 (4-12) mmol/L BUN 25 H D (9-20) mg/dL Creatinine 0.90 (0.7-1.3) mg/dL Estim Creat Clear Calc 98 ml/min Estimated GFR > 60 (59 - ) Glucose 161 H (65-110) mg/dL Calcium 9.3 (8.4-10.2) mg/dL Imaging Data Attestation: I personally reviewed and interpreted this imaging study as follows: Radiologist's impression: Impressions Soft Tissue Neck X-Ray 10/01/24 05:54 IMPRESSION: 1. No radiopaque foreign body. Discharge Plan Discharge Clinical Impression: Globus sensation Patient Disposition: Home, Self-Care Condition: Stable Instructions: Antibiotic Form, Dysphagia (ED) Additional Instructions: you need to follow-up with ear nose and throat doctor on outpatient basis. No emergent or urgent need for any kind of endoscopy or scope. If you develop any kind of difficulty swallowing or tolerating oral secretions or have any kind of new or worsening concerns you can always seek re-evaluation at any time in the ER. Prescriptions: No Action hydrocodone-acetaminophen 5-325 mg tablet 1 tablet PO Q6H PRN (Reason: pain) Qty: 14 0RF cephalexin 500 mg capsule 500 mg PO Q8H Qty: 21 0RF methocarbamol [Robaxin-750] 750 mg tablet 750 mg PO TID 10 Days Qty: 30 0RF sertraline 100 mg tablet 100 mg PO BID hydroxyzine pamoate 50 mg capsule 50 mg PO QID amlodipine 5 mg tablet 5 mg PO DAILY fenofibrate 160 mg tablet 160 mg PO DAILY losartan-hydrochlorothiazide 100-12.5 mg tablet 1 tablet PO DAILY hydrocodone-acetaminophen 5-325 mg tablet 1 - 2 tablet PO Q6H PRN (Reason: pain) Qty: 14 0RF Follow-up/Referrals: Charbel,JOVANI Davis [Primary Care Provider] - Time of Disposition: 06:49
[2024-10-01] MEDS: MAG HYDROX/AL HYDROX/SIMETH 30 ML UDC PO (02:16)
[2024-10-01] MEDS: GLUCAGON FOR INJ 1 MG VIAL IM (02:16)
[2024-10-01] MEDS: NITROGLYCERIN SL 0.4 MG TABLET SUBLINGUAL (02:16)
[2024-10-01 03:06] VITALS: BP 125/88; PULSE 89; RESP 18; O2SAT 96
[2024-10-01] MEDS: ONDANSETRON INJ 4 MG/2 ML VIAL IV PUSH (04:27)
[2024-10-01] MEDS: FAMOTIDINE 20 MG/2 ML VIAL IV PUSH (04:27)
[2024-10-01] MEDS: GLUCAGON FOR INJ 1 MG VIAL IV PUSH (04:27)
[2024-10-01 04:33] VITALS: BP 166/89; PULSE 99; RESP 16; O2SAT 95
[2024-10-01 04:37] LABS: Basophils Absolute Auto 0.1 K/mm3 (0.0-0.1); Basophils Percent Auto 0.4 % (0.2-1.2); Eosinophils Absolute Auto 0.1 K/mm3 (0-0.3); Eosinophils Percent Auto 0.7 % (0-4.4); Hematocrit 45.1 % (42.0-52.0); Hemoglobin 15.3 g/dL (14.0-18.0); Immature Granulocyte Absolute 0.13 K/mm3 (0.00-0.031); Immature Granulocyte Percent A 0.8 % (0-0.5); Lymphocytes Absolute Auto 2.09 K/mm3 (0.9-3.2); Lymphocytes Percent Auto 12.8 % (18.3-44.2); Mean Corpuscular HGB Conc 33.9 g/dl (32-36); Mean Corpuscular Hemoglobin 30.4 pg (26-34); Mean Corpuscular Volume 89.7 fl (80-100); Mean Platelet Volume 8.9 fl (7.4-10.4); Monocytes Percent Auto 6.2 % (2.6-8.5); Neutrophils Absolute Auto 12.9 K/mm3 (1.3-6.7); Neutrophils Percent Auto 79.1 % (45.5-73.1); Platelet Count Result 337 k/mm3 (150-375); Red Blood Count 5.03 M/mm3 (4.6-6.20); Red Cell Distribution Width 14.6 % (11.5-14.5); White Blood Count 16.3 K/mm3 (4.5-10.0)
[2024-10-01 04:52] LABS: Prothrombin Time 13.4 Seconds (11.1-14.7)
[2024-10-01 05:05] LABS: Anion Gap 11 mmol/L (4-12); Blood Urea Nitrogen 25 mg/dL (9-20); Calcium 9.3 mg/dL (8.4-10.2); Carbon Dioxide 22 mmol/L (22-30); Chloride 104 mmol/L (98-107); Estimated CRCL calculation 98 ml/min; Estimated Glomerular Filt Rate > 60; Glucose 161 mg/dL (65-110); Potassium 3.4 mmol/L (3.4-5.0); Sodium 137 mmol/L (137-145)
[2024-10-01 06:56] VITALS: BP 181/76; PULSE 99; RESP 20; O2SAT 100
== END 2024-10-01 06:57 | disposition home or self-care (01) ==
PROVIDERS: Emergency Provider Student in an Organized Health Care Education/Training Program; PCP Physician Assistant
DX: R09.A2 Foreign body sensation, throat (principal); I10 Essential (primary) hypertension; I25.2 Old myocardial infarction; E11.9 Type 2 diabetes mellitus without complications; E78.00 Pure hypercholesterolemia, unspecified; E66.01 Morbid (severe) obesity due to excess calories; Z68.36 Body mass index [BMI] 36.0-36.9, adult; G47.33 Obstructive sleep apnea (adult) (pediatric); K21.9 Gastro-esophageal reflux disease without esophagitis; F41.9 Anxiety disorder, unspecified; Z98.1 Arthrodesis status; Z87.891 Personal history of nicotine dependence; Z79.899 Other long term (current) drug therapy
CPT/HCPCS: 36415; 70360; 80048; 85025; 85610; 85730; 96372; 96374; 96375; 99284; A9270; J1610; J2405

== ENCOUNTER 2024-12-14 10:46 | Outpatient (CLI) | payer MEDICARE, SELFPAY ==
--- NOTE | ~2024-12-14 | XR_ITS ---
EXAMINATION: XR lumbar spine 2-3V DATE: 12/14/2024 11:29 INDICATION: Low back pain. TECHNIQUE: 2 views of lumbar spine were obtained. COMPARISON: Lumbar spine radiographs 09/12/2024 FINDINGS: Alignment is normal. There is mild chronic anterior wedging of T12 and L1 vertebral bodies. There is moderately decreased disc height at L4-L5. There are changes of posterior fusion procedure at L5-S1 with pedicle screws. There is interbody fusion at L5-S1. There is multilevel severe facet ana int osteoarthritis. IMPRESSION: 1. Moderate lumbar spondylosis. 2. Anterior and posterior fusion at L5-S1. Reviewed, dictated and finalized at location A. SIT POLICE OFFICER
--- NOTE | ~2024-12-14 | XR_ITS ---
EXAMINATION: XR_CERV2-3V_CR DATE: 12/14/2024 11:29 INDICATION: Fusion of spine, cervical region. TECHNIQUE: 2 views of cervical spine were obtained. COMPARISON: Cervical spine radiographs 09/05/2023 FINDINGS: There are changes of anterior fusion procedure from C3 to C7 with anterior plates with scre ws. There are interbody devices at C3-C4 and C4-C5. There is multilevel rshv-vh-tobzgzkv facet joint osteoarthritis. There is severe facet joint osteoarthritis at C7-T1. No central canal stenosis or pre vertebral soft tissue swelling. IMPRESSION: 1. Anterior fusion procedures from C3 to C7. 2. Cervical facet joint osteoarthritis. Reviewed, dictated and finalized at location A. [employer]
--- OUTSIDE RECORDS SUMMARY | 2024-12-14 11:31 | XMS_ITS | Patient Health Record ---
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 Name Role Phone Harry Merritt Unavailable [phone] ALLERGIES Allergen (clinical drug ingredient) Drug/Non Drug Allergy documented on EMR Reaction Allergy Type Onset Date Status Latex Latex rash Allergy Active Penicillin rash Drug Allergy Active Tape rash Allergy Active REASON FOR REFERRAL No Information MEDICATIONS Medication SIG (Take, Route, Frequency, Duration) Notes Start Date End Date Status Buena 7.5-325 MG 1 tablet as needed Orally every 6 hrs for 30 days 05/27/2021 Not-Taking Sertraline HCl 100 MG 1 tablet Orally On ce a day Active Azithromycin 250 MG Oral for 5 Not-Taking Levocetirizine Dihydrochloride 5 MG 1 tablet in the evening Orally Once a day Active Fenofibrate 160 MG 1 tablet Orally Once a day for 90 Active Losartan Potassium-HCTZ 100-12.5 MG 1 tablet Orally Once a day for 90 Active amLODIPine Besylate 5 MG 1 tablet Orally Once a day for 90 Active tiZANidine HCl 2 MG TAKE 1 TABLET BY MOUTH THREE TIMES DAILY NEEDED for 30 Active tiZANidine HCl 2 MG 1 tablet as needed Orally Three times a day for 30 days Active Baclofen 10 MG TAKE 1 TABLET BY MOUTH THREE TIMES DAILY WITH FOOD OR MILK for 90 Active HYDROcodone-Acetaminophen 7.5-325 MG 1 tablet as needed Orally every 6 hrs for 30 days 09/17/2024 Active Zolpidem Tartrate 10 MG 1 tablet at [facility] as needed Orally Once a day Active ALPRAZolam ER 1 MG 1 tablet in the morning Orally Once a day Active Dicyclomine HCl 20 MG 1 tablet Orally Th ree times a day Not-Taking Loperamide HCl 2 MG 1 capsule as needed Orally Four times a day Active SOCIAL HISTORY Tobacco Use: Social History Observation Description Date Details (start date - stop date) Never Smoker NA - NA Sex Assigned At : Social History Observation Description Sex Assigned At Unknown Tobacco Use/Smoking Question Answer Notes Are you a nonsmoker Alcohol Screen (Audit-C) Question Answer Notes Did you have a drink containing alcohol in the p ast year? 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) Active confirmed Myositis (71826559) Problem Postlaminectomy syndrome, not elsewhere classified (M96.1) Active confirmed 44962507 Problem 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) Active confirmed 80521942 Problem Radiculopathy of lumbosacral region (M54.17) Active confirmed 8204589 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) Active confirmed [id number] Problem Obesity, unspecified classification, unspecified obesity type, unspecified whether serious comorbidity present (E66.9) Active confirmed 714658012 Problem Sacroiliitis (M46.1) Active confirmed Sacroiliitis (29100933) Problem Myofascial pain (M79.18) Active confirmed Myofascial pain (556466309) VITAL SIGNS Heart Rate 89 /min 09/17/2024 Temperature 97.9 degrees Fahrenheit 09/17/2024 Respiratory Rate 18 /min 09/17/2024 Blood pressure diastolic 79 mm Hg 09/17/2024 Height 73 in 09/17/2024 Blood pressure systolic 115 mm Hg 09/17/2024 Weight 272 lbs 09/17/2024 BMI 35.88 kg/m2 09/17/2024 Encounters Encounter Location Date Provider Diagnosis [facility] [address] [place] [address] 10/02/2024 Harry Cajigal [facility] [address] 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 Z79.891 ; Obesity, unspecified classification, unspecified obesity type, unspecified whether serious comorbidity present E66.9 ; Spondylosis without myelopathy or radiculopathy, cervical region M47.812 ; Radiculopathy of lumbosacral region M54.17 ; Other myositis, multiple sites M60.89 ; Myofascial pain M79.18 and Cervical disc disorder with radiculopathy, cervicothoracic region M50.13 [facility] [address] [facility] [place] [address] 01/02/2024 Harry Cajigal Sacroiliitis M46.1 ; Spondylosis of lumbosacral region without myelopathy or radiculopathy M47.817 ; Low back pain M54.5 ; Other chronic pain G89.29 ; Postlaminectomy syndrome, not elsewhere classified M96.1 ; intermediate current use of opiate analgesic Z79.891 ; Obesity, unspecified classification, unspecified obesity type, unspecified whether serious comorbidity present E66.9 ; Spondylosis without myelopathy or radiculopathy, cervical region M47.812 ; Radiculopathy of lumbosacral region M54.17 ; Other myositis, multiple sites M60.89 ; Myofascial pain M79.18 and Cervical disc disorder with radiculopathy, cervicothoracic region M50.13 [facility] [address] [facility] [place] [address] 01/30/2024 Harry Cajigal Sacroiliitis M46.1 ; Spondylosis of lumbosacral region without myelopathy or radiculopathy M47.817 ; Low back pain M54.5 ; Other chronic pain G89.29 ; Postlaminectomy syndrome, not elsewhere classified M96.1 ; intermediate current use of opiate analgesic Z79.891 ; Obesity, unspecified classification, unspecified obesity type, unspecified whether serious comorbidity present E66.9 ; Spondylosis without myelopathy or radiculopathy, cervical region M47.812 ; Radiculopathy of lumbosacral region M54.17 ; Other myositis, multiple sites M60.89 ; Myofascial pain M79.18 and Cervical disc disorder with radiculopathy, cervicothoracic region M50.13 [facility] [address] [place] [address] 07/10/2024 Harry Cajigal Sacroiliitis M46.1 ; Spondylosis of lumbosacral region without myelopathy or radiculopathy M47.817 ; Low back pain M54.5 ; Other chronic pain G89.29 ; Postlaminectomy syndrome, not elsewhere classified M96.1 ; intermediate current use of opiate analgesic Z79.891 ; Obesity, unspecified classification, unspecified obesity type, unspecified whether serious comorbidity present E66.9 ; Spondylosis without myelopathy or radiculopathy, cervical region M47.812 ; Radiculopathy of lumbosacral region M54.17 ; Other myositis, multiple sites M60.89 ; Myofascial pain M79.18 and Cervical disc disorder with radiculopathy, cervicothoracic region M50.13 [facility] [address] [place] [address] 09/17/2024 Harry Cajigal Sacroiliitis M46.1 ; Spondylosis of lumbosacral region without myelopathy or radiculopathy M47.817 ; Low back pain M54.5 ; Other chronic pain G89.29 ; Postlaminectomy syndrome, not elsewhere classified M96.1 ; intermediate current use of opiate analgesic Z79.891 ; Obesity, unspecified classification, unspecified obesity type, unspecified whether serious comorbidity present E66.9 ; Spondylosis without myelopathy or radiculopathy, cervical region M47.812 ; Radiculopathy of lumbosacral region M54.17 ; Other myositis, multiple sites M60.89 ; Myofascial pain M79.18 and Cervical disc disorder with radiculopathy, cervicothoracic region M50.13 [facility] [address] [place] [address] 12/20/2023 Harry Cajigal [facility] [address] [place] [address] 01/30/2024 Harry Cajigal [facility] [address] [place] [address] 09/03/2024 Harry Cajigal [facility] [address] [place] [address] 09/24/2024 [facility] ASSESSMENTS Encounter Date Diagnosis Assessment Notes Treatment Notes Treatment Clinical Notes Section Notes 12/19/2023 Sacroiliitis (ICD-10 - M46.1) Chronic, exacerbated. Expected to last greater than 1 year. Goals of pain management are to reduce his pain. 1. History of right SI joint injection with minimal benefit unfortunately. Risks of interventional procedure includes bleeding, pain, infection, failure of treatment, injury to nerve or other body parts. 01/02/2024 Sacroiliitis (ICD-10 - M46.1) Chronic, exacerbated. Expected to last greater than 1 year. Goals of pain management are to reduce his pain. 1. History of right SI joint injection with minimal benefit unfortunately. Risks of interventional procedure includes bleeding, pain, infection, failure of treatment, injury to nerve or other body parts. 01/30/2024 Sacroiliitis (ICD-10 - M46.1) Chronic, exacerbated. Expected to last greater than 1 year. Goals of pain management are to reduce his pain. 1. Proceed with right diagnostic SI joint injection per neurosurgery request. 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 Risks of interventional procedure includes bleeding, pain, infection, failure of treatment, injury to nerve or other body parts. 07/10/2024 Sacroiliitis (ICD-10 - M46.1) 09/17/2024 Sacroiliitis (ICD-10 - M46.1) 09/17/2024 Spondylosis of lumbosacral region without myelopathy or radiculopathy (ICD-10 - M47.817) Chronic, exacerbated. Expected to last greater than 1 year. Goals of pain management are to reduce his pain. 1. Continue opioid therapy. Minimal opioid use. Risks of opioid therapy include sedation, overdose, , respiratory depression, immunosuppression , hormone dysfunction, osteopenia, opioid-induced hyperalgesia. 2. History of bilateral lumbar medial branch RFA at L2-3, L3-4 with greater than 50% improvement in pain. Repeat as necessary per patient.. Risks of interventional procedure includes bleeding, pain, infection, failure of treatment, injury to nerve or other body parts. 3. History of last lumbar medial branch RFA at L3-4, L4-5 with minimal benefit unfortunately. Risks of interventional procedure includes bleeding, pain, infection, failure of treatment, injury to nerve or other body parts. 01/30/2024 Spondylosis of lumbosacral region without myelopathy or radiculopathy (ICD-10 - M47.817) Chronic, exacerbated. Expected to last greater than 1 year. Goals of pain management are to reduce his pain. 1. Continue opioid therapy. Minimal opioid use. Risks of opioid therapy include sedation, overdose, , respiratory depression, immunosuppression , hormone dysfunction, osteopenia, opioid-induced hyperalgesia. 2. History of bilateral lumbar medial branch RFA last completed in March 2023 with greater than 50% improvement in pain. Scheduled for repeat. Risks of interventional procedure includes bleeding, pain, infection, failure of treatment, injury to nerve or other body parts. 3. History of last lumbar medial branch RFA at L3-4, L4-5 with minimal benefit unfortunately.. Risks of interventional procedure includes bleeding, pain, infection, failure of treatment, injury to nerve or other body parts. 07/10/2024 Spondylosis of lumbosacral region without myelopathy or radiculopathy (ICD-10 - M47.817) Chronic, exacerbated. Expected to last greater than 1 year. Goals of pain management are to reduce his pain. 1. Continue opioid therapy. Minimal opioid use. Risks of opioid therapy include sedation, overdose, , respiratory depression, immunosuppression , hormone dysfunction, osteopenia, opioid-induced hyperalgesia. 2. History of bilateral lumbar medial branch RFA at L2-3, L3-4 last completed in March 2023 with greater than 50% improvement in pain. Repeat today with sedation. 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 Risks of interventional procedure includes bleeding, pain, infection, failure of treatment, injury to nerve or other body parts. 3. History of last lumbar medial branch RFA at L3-4, L4-5 with minimal benefit unfortunately. Risks of interventional procedure includes bleeding, pain, infection, failure of treatment, injury to nerve or other body parts. 01/02/2024 Spondylosis of lumbosacral region without myelopathy or radiculopathy (ICD-10 - M47.817) Chronic, exacerbated. Expected to last greater than 1 year. Goals of pain management are to reduce his pain. 1. Continue opioid therapy. Minimal opioid use. Risks of opioid therapy include sedation, overdose, , respiratory depression, immunosuppression , hormone dysfunction, osteopenia, opioid-induced hyperalgesia. 2. History of bilateral lumbar medial branch RFA last completed in March 2023 with greater than 50% improvement in pain. Scheduled for repeat. Risks of interventional procedure includes bleeding, pain, infection, failure of treatment, injury to nerve or other body parts. 3. Per neurosurgery request, would like us to target the L4-5 level. S/p diagnostic lumbar medial branch block x2 at bilateral L3-4, L4-5 with >80% improvement in pain. Proceed with RFA. 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 Recommend to ice back 20 minutes on 20 minutes off for the next 3 to 4 days. Recommend to take [id number] NSAIDs as needed for postop pain. Risks of interventional procedure includes bleeding, pain, infection, failure of treatment, injury to nerve or other body parts. 12/19/2023 Spondylosis of lumbosacral region without myelopathy or radiculopathy (ICD-10 - M47.817) Chronic, exacerbated. Expected to last greater than 1 year. Goals of pain management are to reduce his pain. 1. Continue opioid therapy. Minimal opioid use. Risks of opioid therapy include sedation, overdose, , respiratory depression, immunosuppression , hormone dysfunction, osteopenia, opioid-induced hyperalgesia. 2. History of bilateral lumbar medial branch RFA last completed in March 2023 with greater than 50% improvement in pain. Scheduled for repeat. Risks of interventional procedure includes bleeding, pain, infection, failure of treatment, injury to nerve or other body parts. 3. Per neurosurgery request, would like us to target the L4-5 level. S/p first diagnostic lumbar medial branch block at bilateral L3-4, L4-5 with >80% improvement in pain. Repeat today, if good result, schedule for RFA. Risks of interventional procedure includes bleeding, pain, infection, failure of treatment, injury to nerve or other body parts. 12/19/2023 Low back pain (ICD-10 - M54.5) 01/02/2024 Low back pain (ICD-10 - M54.5) 01/30/2024 Low back pain (ICD-10 - M54.5) 07/10/2024 Low back pain (ICD-10 - M54.5) 09/17/2024 Low back pain (ICD-10 - M54.5) 09/17/2024 Other chronic pain (ICD-10 - G89.29) 07/10/2024 Other chronic pain (ICD-10 - G89.29) 01/30/2024 Other chronic pain (ICD-10 - G89.29) 01/02/2024 Other chronic pain (ICD-10 - G89.29) 12/19/2023 Other chronic pain (ICD-10 - G89.29) 12/19/2023 Postlaminectomy syndrome, not elsewhere classified (ICD-10 - M96.1) 01/02/2024 Postlaminectomy syndrome, not elsewhere classified (ICD-10 - M96.1) 01/30/2024 Postlaminectomy syndrome, not elsewhere classified (ICD-10 - M96.1) 07/10/2024 Postlaminectomy syndrome, not elsewhere classified (ICD-10 - M96.1) 09/17/2024 Postlaminectomy syndrome, not elsewhere classified (ICD-10 - M96.1) 09/17/2024 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 (ICD-10 - Z79.891) 07/10/2024 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 (ICD-10 - Z79.891) 01/30/2024 intermediate current use of opiate analgesic (ICD-10 - Z79.891) 01/02/2024 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 (ICD-10 - Z79.891) 12/19/2023 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 (ICD-10 - Z79.891) 12/19/2023 Obesity, unspecified classification, unspecified obesity type, unspecified whether serious comorbidity present (ICD-10 - E66.9) 01/02/2024 Obesity, unspecified classification, unspecified obesity type, unspecified whether serious comorbidity present (ICD-10 - E66.9) 01/30/2024 Obesity, unspecified classification, unspecified obesity type, unspecified whether serious comorbidity present (ICD-10 - E66.9) 07/10/2024 Obesity, unspecified classification, unspecified obesity type, unspecified whether serious comorbidity present (ICD-10 - E66.9) 09/17/2024 Obesity, unspecified classification, unspecified obesity type, unspecified whether serious comorbidity present (ICD-10 - E66.9) 09/17/2024 Spondylosis without myelopathy or radiculopathy, cervical region (ICD-10 - M47.812) Chronic, exacerbated. Expected to last greater than 1 year. Goals of pain management are to reduce his pain. 1. X-ray cervical spine for neck pain ordered. 2. 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 Risks of interventional procedure includes bleeding, pain, infection, failure of treatment, injury to nerve or other body parts. 07/10/2024 Spondylosis without myelopathy or radiculopathy, cervical region (ICD-10 - M47.812) Chronic, exacerbated. Expected to last greater than 1 year. Goals of pain management are to reduce his pain. 1. X-ray cervical spine for neck pain ordered. 2. 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 Risks of interventional procedure includes bleeding, pain, infection, failure of treatment, injury to nerve or other body parts. 01/30/2024 Spondylosis without myelopathy or radiculopathy, cervical region (ICD-10 - M47.812) Chronic, exacerbated. Expected to last greater than 1 year. Goals of pain management are to reduce his pain. 1. X-ray cervical spine for neck pain ordered. 2. 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 Risks of interventional procedure includes bleeding, pain, infection, failure of treatment, injury to nerve or other body parts. 01/02/2024 Spondylosis without myelopathy or radiculopathy, cervical region (ICD-10 - M47.812) Chronic, exacerbated. Expected to last greater than 1 year. Goals of pain management are to reduce his pain. 1. X-ray cervical spine for neck pain ordered. 2. 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 Risks of interventional procedure includes bleeding, pain, infection, failure of treatment, injury to nerve or other body parts. 12/19/2023 Spondylosis without myelopathy or radiculopathy, cervical region (ICD-10 - M47.812) Chronic, exacerbated. Expected to last greater than 1 year. Goals of pain management are to reduce his pain. 1. X-ray cervical spine for neck pain ordered. 2. 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 Risks of interventional procedure includes bleeding, pain, infection, failure of treatment, injury to nerve or other body parts. 12/19/2023 Radiculopathy of lumbosacral region (ICD-10 - M54.17) Chronic, exacerbated. Expected to last greater than 1 year. Goals of pain management are to reduce his pain. 1.S/p right L4-5 selective KERRIE with 50% improvement in pain. Risks of interventional procedure includes bleeding, pain, infection, failure of treatment, injury to nerve or other body parts. 2. Recommend to follow-up with neurosurgery after procedure. 3. Consider caudal KERRIE as a different approach to see if better benefit. Risks of interventional procedure includes bleeding, pain, infection, failure of treatment, injury to nerve or other body parts. 01/02/2024 Radiculopathy of lumbosacral region (ICD-10 - M54.17) Chronic, exacerbated. Expected to last greater than 1 year. Goals of pain management are to reduce his pain. 1.S/p right L4-5 selective KERRIE with 50% improvement in pain. Risks of interventional procedure includes bleeding, pain, infection, failure of treatment, injury to nerve or other body parts. 2. Recommend to follow-up with neurosurgery after procedure. 3. Consider caudal KERRIE as a different approach to see if better benefit. Risks of interventional procedure includes bleeding, pain, infection, failure of treatment, injury to nerve or other body parts. 01/30/2024 Radiculopathy of lumbosacral region (ICD-10 - M54.17) Chronic, exacerbated. Expected to last greater than 1 year. Goals of pain management are to reduce his pain. 1. History of right L4-5 selective KERRIE with 50% improvement in pain. Risks of interventional procedure includes bleeding, pain, infection, failure of treatment, injury to nerve or other body parts. 2. Recommend to follow-up with neurosurgery after procedure. 3. Consider caudal KERRIE as a different approach to see if better benefit. Risks of interventional procedure includes bleeding, pain, infection, failure of treatment, injury to nerve or other body parts. 07/10/2024 Radiculopathy of lumbosacral region (ICD-10 - M54.17) Chronic, exacerbated. Expected to last greater than 1 year. Goals of pain management are to reduce his pain. 1. History of right L4-5 selective KERRIE with 50% improvement in pain. Risks of interventional procedure includes bleeding, pain, infection, failure of treatment, injury to nerve or other body parts. 2. Recommend to follow-up with neurosurgery after procedure. 3. Consider caudal KERRIE as a different approach to see if better benefit. Risks of interventional procedure includes bleeding, pain, infection, failure of treatment, injury to nerve or other body parts. 09/17/2024 Radiculopathy of lumbosacral region (ICD-10 - M54.17) Chronic, exacerbated. Expected to last greater than 1 year. Goals of pain management are to reduce his pain. 1. History of right L4-5 selective KERRIE with 50% improvement in pain. Risks of interventional procedure includes bleeding, pain, infection, failure of treatment, injury to nerve or other body parts. 2. Recommend to follow-up with neurosurgery after procedure. 3. Proceed with caudal KERRIE as a different approach to see if better benefit. Risks of interventional procedure includes bleeding, pain, infection, failure of treatment, injury to nerve or other body parts. 09/17/2024 Other myositis, multiple sites (ICD-10 - M60.89) Chronic, exacerbated. Expected to last greater than 1 year. Goals of pain management are to reduce his pain. 1. Pursue muscle relaxant rotation. Discontinue baclofen and start tizanidine to see if better benefit. 2. Recommend to pursue heating, stretching, massage, exercise for myofascial pain. 3. History of trigger point injection with minimal benefit. Risks of interventional procedure includes bleeding, pain, infection, failure of treatment, injury to nerve or other body parts. 07/10/2024 Other myositis, multiple sites (ICD-10 - M60.89) Chronic, exacerbated. Expected to last greater than 1 year. Goals of pain management are to reduce his pain. 1. Pursue muscle relaxant rotation. Discontinue baclofen and start tizanidine to see if better benefit. 2. Recommend to pursue heating, stretching, massage, exercise for myofascial pain. 3. History of trigger point injection with minimal benefit. Risks of interventional procedure includes bleeding, pain, infection, failure of treatment, injury to nerve or other body parts. 01/02/2024 Other myositis, multiple sites (ICD-10 - M60.89) Chronic, exacerbated. Expected to last greater than 1 year. Goals of pain management are to reduce his pain. 1. Pursue muscle relaxant rotation. Discontinue baclofen and start tizanidine to see if better benefit. 2. Recommend to pursue heating, stretching, massage, exercise for myofascial pain. 3. History of trigger point injection with minimal benefit. Risks of interventional procedure includes bleeding, pain, infection, failure of treatment, injury to nerve or other body parts. 01/30/2024 Other myositis, multiple sites (ICD-10 - M60.89) Chronic, exacerbated. Expected to last greater than 1 year. Goals of pain management are to reduce his pain. 1. Pursue muscle relaxant rotation. Discontinue baclofen and start tizanidine to see if better benefit. 2. Recommend to pursue heating, stretching, massage, exercise for myofascial pain. 3. History of trigger point injection with minimal benefit. Risks of interventional procedure includes bleeding, pain, infection, failure of treatment, injury to nerve or other body parts. 12/19/2023 Other myositis, multiple sites (ICD-10 - M60.89) Chronic, exacerbated. Expected to last greater than 1 year. Goals of pain management are to reduce his pain. 1. Pursue muscle relaxant rotation. Discontinue baclofen and start tizanidine to see if better benefit. 2. Recommend to pursue heating, stretching, massage, exercise for myofascial pain. 3. History of trigger point injection with minimal benefit. Risks of interventional procedure includes bleeding, pain, infection, failure of treatment, injury to nerve or other body parts. 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 Expected to last greater than 1 year. Goals of pain management are to reduce his pain. 1. History midline cervical KERRIE with >50% improvement in pain. Risks of interventional procedure includes bleeding, pain, infection, failure of treatment, injury to nerve or other body parts.2. MRI cervical spine reviewed showing anterior fusion from C5-C7, multiple levels of facet joint osteoarthritis, multiple levels of foraminal stenosis, multiple levels of mild central canal stenosis. Please see scanned documents for more details 3. Recommend to follow-up with neurosurgery after procedure. 07/10/2024 Cervical disc disorder with radiculopathy, cervicothoracic region (ICD-10 - M50.13) Chronic, exacerbated. Expected to last greater than 1 year. Goals of pain management are to reduce his pain. 1. History midline cervical KERRIE with >50% improvement in pain. Risks of interventional procedure includes bleeding, pain, infection, failure of treatment, injury to nerve or other body parts.2. MRI cervical spine reviewed showing anterior fusion from C5-C7, multiple levels of facet joint osteoarthritis, multiple levels of foraminal stenosis, multiple levels of mild central canal stenosis. Please see scanned documents for more details 3. Recommend to follow-up with neurosurgery after procedure. 01/30/2024 Cervical disc disorder with radiculopathy, cervicothoracic region (ICD-10 - M50.13) Chronic, exacerbated. Expected to last greater than 1 year. Goals of pain management are to reduce his pain. 1. History midline cervical KERRIE with >50% improvement in pain. Risks of interventional procedure includes bleeding, pain, infection, failure of treatment, injury to nerve or other body parts.2. MRI cervical spine reviewed showing anterior fusion from C5-C7, multiple levels of facet joint osteoarthritis, multiple levels of foraminal stenosis, multiple levels of mild central canal stenosis. Please see scanned documents for more details 3. Recommend to follow-up with neurosurgery after procedure. 01/02/2024 Cervical disc disorder with radiculopathy, cervicothoracic region (ICD-10 - M50.13) Chronic, exacerbated. Expected to last greater than 1 year. Goals of pain management are to reduce his pain. 1. History midline cervical KERRIE with >50% improvement in pain. Risks of interventional procedure includes bleeding, pain, infection, failure of treatment, injury to nerve or other body parts.2. MRI cervical spine reviewed showing anterior fusion from C5-C7, multiple levels of facet joint osteoarthritis, multiple levels of foraminal stenosis, multiple levels of mild central canal stenosis. Please see scanned documents for more details 3. Recommend to follow-up with neurosurgery after procedure. 12/19/2023 Cervical disc disorder with radiculopathy, cervicothoracic region (ICD-10 - M50.13) Chronic, exacerbated. Expected to last greater than 1 year. Goals of pain management are to reduce his pain. 1. History midline cervical KERRIE with >50% improvement in pain. Risks of interventional procedure includes bleeding, pain, infection, failure of treatment, injury to nerve or other body parts.2. MRI cervical spine reviewed showing anterior fusion from C5-C7, multiple levels of facet joint osteoarthritis, multiple levels of foraminal stenosis, multiple levels of mild central canal stenosis. Please see scanned documents for more details 3. Recommend to follow-up with neurosurgery after procedure. 12/19/2023 Other MDM: 2 or more chronic exacerbated illnesses and moderate risk morbidity secondary to interventional pain procedures and prescription medication management. 01/02/2024 Other MDM: 2 or more chronic exacerbated illnesses and moderate risk morbidity secondary to interventional pain procedures and prescription medication management. 01/30/2024 Other MDM: 2 or more chronic exacerbated illnesses and moderate risk morbidity secondary to interventional pain procedures and prescription medication management. 07/10/2024 Other MDM: 2 or more chronic exacerbated illnesses and moderate risk morbidity secondary to interventional pain procedures and prescription medication management. 09/17/2024 Other MDM: 2 or more chronic exacerbated illnesses and moderate risk morbidity secondary to interventional pain procedures and prescription medication management. PLAN OF TREATMENT No Information Insurance Providers Payer Name Payer Address Payer Phone Subscriber Number Group Number Insured Name Patient Relationship to Insured Coverage Start Date Coverage End Date Medicare Complete [address] [address] [place] [address] [id number] Lauri Almeida Self - patient is the insured MEDICAL (GENERAL) HISTORY Medical History History ICD Code Heart attack ASCVD osteoarthritis headaches migraine headaches gastroesophageal reflux disease (GERD) peptic ulcer disease chronic obstructive pulmonary disease (C OPD) anxiety Panic attacks fell due to rt leg (painful) testicular pain Surgical History Surgery Date(Month/Year) cervical laminectomy lumbar laminectomy cervical fusion lumbar fusion cholecystectomy Hospitalization History Reason Date(Month/Year) trouble breathing and 8ft fence fell on him 12/2022 [facility] 02/2020
--- OUTSIDE RECORDS SUMMARY | 2024-12-14 11:31 | XMS_ITS ---
Author Organization [facility] [place] Address [address] [place] [address] Care Team Providers Care Director Retirement Name Role Phone Harry Merritt Unavailable [phone] REASON FOR VISIT follow up / [facility] Encounters Encounter Location Date Provider Diagnosis [place] [facility] [address] [place] [address] 10/02/2024 Harry Merritt PLAN OF TREATMENT No Information Progress Notes * Lauri ALMEIDADOB:1955 (69 yo M)Acc No.[id number]:10/02/2024 Progress Notes Patient: Lauri ALMEIDA Provider: Harry Merritt MD :1955 Age:69 Y Sex:Male Date:10/02/2024 Address:[facility] [address] [id number] Subjective: * Chief Complaints: * 1. follow up / [facility]. * Medical History: Objective: Assessment: Plan: * Treatment: * Images: * Sign off status: Pending * Provider: Harry Merritt MD Date: 10/02/2024
--- OUTSIDE RECORDS SUMMARY | 2024-12-14 11:31 | XMS_ITS ---
Author Organization [facility] Address [address] [address] Care Team Providers Care Warehouse Receiver Name Role Phone Harry Merritt Unavailable [phone] Encounters Encounter Location Date Provider Diagnosis [place] [facility] [address] [place] [address] 09/24/2024 Harry Merritt PLAN OF TREATMENT No Information Progress Notes * Luari ALMEIDADOB:1955 (69 yo M)Acc No.[id number]:09/24/2024 Patient: Lauri ALMEIDA :1955 Age:69 Y Sex:Male Address:[address] [place], [place], [address] * true * Date:
--- OUTSIDE RECORDS SUMMARY | 2024-12-14 11:31 | XMS_ITS | Clinical Summary ---
Author Organization [facility] Address [address] [place] [address] Care Team Providers Care Digital Production Artist Name Role Phone Sahra Zaidi MD Primary Care Provider [phone] Source Comments [facility],non-owned Affiliates and Associated Physician Practices is amultiple site organization consisting of ambulatory clinics and hospital sitesin [place], [place], [place] and [place]. This disclosure is being madepursuant to the Care Everywhere program and may not contain all information available regarding this patient. Last updated 18.[facility] [employer] Allergies No known active allergies Medications * Be aware that medications may not be up to date on this document. Alwaysverify current medications with the patient. Medication Sig Dispensed Refills Start Date End Date Status albuterol HFA (PROVENTIL;VENTOLIN; PROAIR) 108 (90 BASE) MCG/ACT inhaler every 4 hours Active hydrocodone-acetamin ophen (NORCO) 10-325 MG tablet Take 1-2 TABLET EVERY 4 HOURS by oral route prn. Active ALPRAZolam (XANAX) 0.25 MG tablet TAKE 1 TABLET BY MOUTH EVERY NIGHT AT BEDTIME NEEDED Active ALPRAZolam (XANAX) 1 MG tablet Take 1 tablet(s) 3 times a day by oral route as needed. Active amLODIPine (NORVASC) 5 MG tablet TAKE 1 TABLET BY MOUTH EVERY DAY Active fenofibrate (LOFIBRA) 160 MG tablet fenofibrate 160 mg tablet Active hydrOXYzine pamoate (VISTARIL) 50 MG capsule hydroxyzine pamoate 50 mg capsule Active sertraline (ZOLOFT) 100 MG tablet TAKE 2 TABLETS BY MOUTH EVERY DAY DIRECTED Active tadalafil (CIALIS) 20 MG tablet Take 1 tablet(s) by oral route as needed for 30 days. Active omeprazole (PRILOSEC) 20 MG capsule Take 1 capsule(s) every day by oral route. Active Family History Medical History Relation Name Comments Cancer Father pancreas Arthritis - Osteo Mother CAD (Coronary Artery Disease) Mother Diabetes Mother Stroke Mother Relation Name Status Comments Father Mother Social History Tobacco Use Types Packs/Day Years Used Date Smoking Tobacco: Former Alcohol Use Standard Drinks/Week Comments No 0 (1 standard drink = 0.6 oz pur e alcohol) Sex and Gender Information Value Date Recorded Sex Assigned at Not on file Gender Identity Not on file Sexual Orientation Not on file Last Filed Vital Signs Vital Sign Reading Time Taken Comments Blood Pressure - - Pulse - - Temperature - - Respiratory Rate - - Oxygen Saturation - - Inhaled Oxygen Concentration - - Weight 117.9 kg (260 lb) 06/18/2010 1:18 PM CDT Height 185.4 cm (6' 1 ) 06/18/2010 1:18 PM CDT Body Mass Index 34.3 06/18/2010 1:18 PM CDT Plan of Treatment Health Maintenance Due Date Last Done Comments COLOGUARD (AGES 45-75) - COL ON CA SCREENING 1955 COLON MONITORING 1955 COLONOSCOPY - COLON CA SCREENING 1957 CT COLONOGRAPHY - COLON CA SCREENING 1955 Colorectal Cancer Screening 1955 FIT - COLON CA SCREENING 1957 FLEX SIG - COLON CA SCREENING 1957 LIPID TESTING 1955 HEPATITIS C SCREENING 01/18/1975 DTAP/TDAP/TD VACCINES (1 - Tdap) 01/23/1976 PNEUMOCOCCAL VACCINE 50+ (1 of 1 - PCV) 2007 ZOSTER VACCINE (1 of 2) 2007 AAA SCREENING 2022 COVID-19 VACCINE (1 - 2023-2 5 season) 2024 INFLUENZA VACCINE (#1) 2024 DEPRESSION SCREENING 11/07/2024 MEDICARE AWV CALENDAR YEAR 2024 Respiratory Syncytial Virus (RSV) Vaccine Pt: or over 60 yrs (1 - 1-dose 75+ series) 01/23/2032 HEPATITIS B VACCINE Aged Out No longe r eligible based on patient's age to complete this topic HIB VACCINE Aged Out No longer eligi ble based on patient's age to complete this topic HPV VACCINE Aged Out No longer eligi ble based on patient's age to complete this topic MENINGOCOCCAL (Group B) VACCINE Aged Out No longer eligible based on patient's age to complete this topic MENINGOCOCCAL VACCINE Aged Out No vick bassem eligible based on patient's age to complete this topic Care Teams Digital Production Artist Relationship Specialty Start Date End Date Sahra Zaidi MD [address] [place] [address] [address] [place] [phone] PCP - General 03/11/20
--- OUTSIDE RECORDS SUMMARY | 2024-12-14 11:31 | XMS_ITS | Referral Summary ---
Author Organization [facility] Address [address] [place] [address] Care Team Providers Care Movie Critic Name Role Phone Sahra Zaidi MD Primary Care Provider [phone] Source Comments [facility],non-[facility] Affiliates and Associated Physician Practices is amultiple site organization consisting of ambulatory clinics and hospital sitesin [place], [place], [place] and [place]. This disclosure is being madepursuant to the Care Everywhere program and may not contain all information available regarding this patient. Last updated 18.[facility] [employer] Allergies No known active allergies Medications * [...] capsule(s) every day by oral route. Active Social History Tobacco Use Types Packs/Day Years [...] 06/18/2010 1:18 PM CDT Plan of Treatment Not on file Care Teams Movie Critic Relationship Specialty Start Date End Date Sahra Zaidi MD [address] [place] [address] [place] [phone] PCP - General 03/11/20
--- OUTSIDE RECORDS SUMMARY | 2024-12-14 11:32 | XMS_ITS | Patient Health Summary ---
Author Organization [facility] Address [address] [place] [address] Care Team Providers Care Avionics System Engineer Name Role Phone Sahra Zaidi MD Primary Care Provider [phone] Note from [facility],non-owned Affiliates and Associated Physician Practices is amultiple site organization consisting of ambulatory clinics and hospital sitesin [place], [place], [place] and [place]. This disclosure is being madepursuant to the Care Everywhere program and may not contain all information available regarding this patient. Last updated 18.[facility] Allergies No known active allergies Medications * Be aware that medications may not be up to date on this document. Alwaysverify current medications with the patient. * albuterol HFA (PROVENTIL;VENTOLIN;PROAIR) 108 (90 BASE) MCG/ACT inhaler every 4 hours * hydrocodone-acetaminophen (NORCO) 10-325 MG tablet Take 1-2 TABLET EVERY 4 HOURS by oral route prn. * ALPRAZolam (XANAX) 0.25 MG tablet TAKE 1 TABLET BY MOUTH EVERY NIGHT AT BEDTIME NEEDED * ALPRAZolam (XANAX) 1 MG tablet Take 1 tablet(s) 3 times a day by oral route as needed. * amLODIPine (NORVASC) 5 MG tablet TAKE 1 TABLET BY MOUTH EVERY DAY * fenofibrate (LOFIBRA) 160 MG tablet fenofibrate 160 mg tablet * hydrOXYzine pamoate (VISTARIL) 50 MG capsule hydroxyzine pamoate 50 mg capsule * sertraline (ZOLOFT) 100 MG tablet TAKE 2 TABLETS BY MOUTH EVERY DAY DIRECTED * tadalafil (CIALIS) 20 MG tablet Take 1 tablet(s) by oral route as needed for 30 days. * omeprazole (PRILOSEC) 20 MG capsule Take 1 capsule(s) every day by oral route. Social History Tobacco Use Types Packs/Day Years [...] Mass Index 34.3 06/18/2010 1:18 PM CDT Procedures * IMAGING/RADIOLOGY/XRAY RESULTS ORDER(Performed 01/15/2016) * MRI LUMBAR SPINE WO CONTRAST(Performed 01/03/2010) Results * IMAGING/RADIOLOGY/XRAY RESULTS ORDER (01/15/2016) Anatomical Region Laterality Modality Other Corina Brewer MD IMAGING * MRI SPINE LUMBAR NON CONTRAST (01/03/2010) Anatomical Region Laterality Modality Spine Other Rupesh Macedo MD MR ORDERABLES Care Teams Avionics System Engineer Relationship Specialty Start Date End Date Sahra Zaidi MD [address] [place] [phone] PCP - General 03/11/20
--- OUTSIDE RECORDS SUMMARY | 2024-12-14 11:32 | XMS_ITS | Encounter Summary ---
Author Organization [facility] Address 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
--- OUTSIDE RECORDS SUMMARY | 2024-12-14 11:32 | XMS_ITS | Clinical Summary ---
Author Organization [facility] Address [address] [place] [address] Care Team Providers Care Terminal Gauger Supervisor Name Role Phone Corina Brewer MD Primary Care Provider [phone] Allergies No known active allergies Medications amLODIPine (NORVASC) 5 mg tablet Take 1 tablet (5 mg total) by mouth daily Active fenofibrate (TRIGLIDE) 160 mg tablet Take 1 tablet (160 mg total) by mouth daily Active sertraline (ZOLOFT) 100 mg tablet Take 4 tablets (400 mg total) by mouth daily Active loperamide (IMODIUM) 2 mg capsule Take 1 capsule (2 mg total) by mouth 2 (two) times a day Active levocetirizine (XYZAL) 5 mg tablet Take 1 tablet (5 mg total) by mouth every evening Active ALPRAZolam (XANAX) 1 mg tablet Take 1 tablet (1 mg total) by mouth 3 (three) times a day as needed for anxiety Active zolpidem (AMBIEN) 10 mg tabletIndicatio ns:Sleep-Onset Insomnia Take 1 tablet (10 mg total) by mouth nightly as needed for sleep Active TiZANidine (ZANAFLEX) 2 mg capsule Take 1 capsule (2 mg total) by mouth 3 (three) times a day as needed for muscle spasms Active albuterol HFA (PROVENTIL HFA,VENTOLIN HFA,PROAIR HFA) 90 mcg/actuation inhaler Inhale 2 puffs every 4 (four) hours as needed Active losartan-hydroC HLOROthiazide (HYZAAR) 100-12.5 mg per tablet Take 1 tablet by mouth daily Active oxyCODONE-aceta minophen (PERCOCET) 7.5-325 mg per tabletIndicatio ns:Pain Take 1 tablet by mouth every 4 (four) hours as needed for pain 40 tablet 07/01/2023 Active Active Problems Problem Noted Date Diagnosed Date Cervical spinal stenosis 05/31/2023 Surgical History Surgery Date Site/Laterality Comments CHOLECYSTECTOMY ROTATOR CUFF REPAIR Right BACK SURGERY cage placement in lumbar region CERVICAL SPINE SURGERY fusion Medical History Medical History Date Comments Motion sickness Sleep apnea Hypertension Asthma Irritable bowel syndrome H/O cervical spine surgery Former smoker Social History Tobacco Use Types Packs/Day Years Used Date Smoking Tobacco: Former Cigarettes Smokeless Tobacco: Never Tobacco Cessation:Counseling Given: Not Answered Alcohol Use Standard Drinks/Week Comments Not Currently 0 (1 standard drink = 0.6 oz pur e alcohol) AUDIT-C Answer Date Recorded Q1: How often do you have a drink containing alcohol? Never 07/01/2023 Q2: How many drinks containi ng alcohol do you have on a typical day when you are drinking? Patient does not drink Q3: How often do you have si x or more drinks on one occasion? Never 07/01/2023 Personal Safety Answer Date Recorded Have you ever been in or are you currently in a harmful physical or emotional relationship or is someone making you feel afraid or unsafe? 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 Gender Identity Not on file Sexual Orientation Not on file Obstetrics History Last Filed Vital Signs Vital Sign Reading Time Taken Comments Blood Pressure 112/67 07/08/2023 3:15 PM CDT Pulse 76 07/08/2023 3:15 PM CDT Temperature 36.9 C (98.5 F) 07/08/2023 11:08 AM CDT Respiratory Rate 16 07/08/2023 3:15 PM CDT Oxygen Saturation 94% 07/08/2023 3:15 PM CDT Inhaled Oxygen Concentration - - Weight 127 kg (280 lb) 07/08/2023 11:06 AM CDT Height 185.4 cm (6' 1 ) 07/08/2023 11:06 AM CDT Body Mass Index 36.94 07/08/2023 11:06 AM CDT Plan of Treatment Health Maintenance Due Date Last Done Comments Colon Cancer Screening-Colonoscopy 1955 Depression Screening 1955 Hepatitis C Screening 1955 Prostate Cancer Screening-PSA 1957 Pneumococcal vaccine 65+ (1 of 2 - PCV) 1963 Hepatitis B Screening 1975 Zoster Vaccine (1 of 2) 2007 Abdominal Aortic Aneurysm (A AA) Screen 2022 Well Visit 65+ 2022 Fall Risk Assessment 07/01/2024 07/01/2023 Covid-19 Vaccine (5 - 2023-2 5 season) 2024 11/15/2022, 10/08/2021, 02/24/2021, Additional history exists Influenza Vaccine (#1) 2024 DTaP/Tdap/Td Vaccine (3 - Td or Tdap) 05/28/2026 05/28/2016, 03/07/2008 Medical Devices Implanted Type Area Park Recreation Manager Device Identifier Shelf Expiration Date Model / Serial / Lot [employer] Osteoamp Select Fiber 1cc Oasf-01 - [id number] - [id number] Implanted:Qty: 1 on 07/01/2023 by Andrea Shelby MD at [facility] N/A: Spine Cervical [employer] 02/14/2028 OASF-01 / [id number] / [employer] Cage Ti3z Cif [id number] -6 Deg 222-0607 - [id number] Implanted:Qty: 1 on 07/01/2023 by Andrea Shelby MD at [facility] N/A: Spine Cervical [employer] 01/21/2028 222-0607 / / [id number] [employer] Cage Ti3z Cif [id number] -6 Deg 222-0607 - [id number] Implanted:Qty: 1 on 07/01/2023 by Andrea Shelby MD at [facility] N/A: Spine Cervical [employer] 01/21/2028 222-0607 / / [id number] [employer] Plate 2-Level 26 Mm Cervical [id number] - [id number] Implanted:Qty: 1 on 07/01/2023 by Andrea Shelby MD at [facility] N/A: Spine Cervical [employer] [id number] / / [employer] Screw Self Drilling Variable 4.0x16mm [id number] - [id number] Implanted:Qty: 4 on 07/01/2023 by Andrea Shelby MD at [facility] N/A: Spine Cervical [employer] [id number] / / [employer] Screw Self-Drilling 4x18mm [id number] - [id number] Implanted:Qty: 2 on 07/01/2023 by Andrea Shelby MD at [facility] N/A: Spine Cervical [employer] [id number] / / Insurance [facility]ICARE [facility] MED[facility] Address: [address] [address] [address]IC[facility] Address: [address] [address] [place] [address] [address]IC[facility] Address: [address] [address] [place] [address] [address] MEDIC[facility] Address: [address] [address] [place] [address] Care Teams Terminal Gauger Supervisor Relationship Specialty Start Date End Date Corina Brewer MD [address] [place] [address] [place] [address] PCP - General Family Medicine 06/20/23
--- OUTSIDE RECORDS SUMMARY | 2024-12-14 11:32 | XMS_ITS | Clinical Summary ---
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
--- OUTSIDE RECORDS SUMMARY | 2024-12-14 11:32 | XMS_ITS | Clinical Summary ---
Author Organization [facility] Address [address] [place] [id number] Care Team Providers Care Electronics Supervisor Name Role Phone Sahra Zaidi MD Primary Care Provider Social History Tobacco Use Types Packs/Day Years Used Date Smoking Tobacco: Never Assessed Sex and Gender Information Value Date Recorded Sex Assigned at Not on file Legal Sex Male 4:55 PM CDT Gender Identity Not on file Sexual Orientation Not on file Plan of Treatment Health Maintenance Due Date Last Done Comments Colorectal Cancer Screening Colonoscopy (10 Years) 1955 Hepatitis C 1975 DTaP, Tdap and Td Vaccines ( 1 - Tdap) 01/23/1976 Zoster Vaccines (1 of 2) 2007 Pneumococcal Vaccine: 65+ Ye ars (1 of 1 - PCV) 2022 COVID-19 Vaccine (1 - 2023-2 5 season) 2024 Influenza Adult (#1) 2024 RSV Immunization or 60+ Years (1 - 1-dose 75+ series) 01/23/2032 Meningococcal B Vaccine Aged Out No l onger eligible based on patient's age to complete this topic Meningococcal Vaccine Aged Out No vick bassem eligible based on patient's age to complete this topic RSV Immunizations Under 20 Months Aged Out No longer eligible based on patient's age to complete this topic Care Teams Electronics Supervisor Relationship Specialty Start Date End Date Sahra Zaidi MD [address], [place], [place] [id number] PCP - General 05/21/13
--- OUTSIDE RECORDS SUMMARY | 2024-12-14 11:32 | XMS_ITS ---
Author Organization [facility] Address [address] [place] [address] Care Team Providers Care Database Marketing Specialist Name Role Phone Harry Merritt Unavailable [phone] ALLERGIES Allergen (clinical drug ingredient) Drug/Non Drug Allergy documented on EMR Reaction Allergy Type Onset Date Status Latex Latex rash Allergy Active Penicillin rash Drug Allergy Active Tape rash Allergy Active REASON FOR VISIT Procedure: Caudal KERRIE with sedation MEDICATIONS Medication SIG (Take, Route, Frequency, Duration) Notes Start Date End Date Status ALPRAZolam ER 1 MG 1 tablet in the morning Orally Once a day Active Loperamide HCl 2 MG 1 capsule as needed Orally Four times a day Active Azithromycin 250 MG Oral for 5 Not-Taking HYDROcodone-Acetaminophen 7.5-325 MG 1 tablet as needed Orally every 6 hrs for 30 days 09/17/2024 Active Zolpidem Tartrate 10 MG 1 tablet at [place] as needed Orally Once a day Active Dicyclomine HCl 20 MG 1 tablet Orally Th ree times a day Not-Taking Tracy 7.5-325 MG 1 tablet as needed Orally every 6 hrs for 30 days 05/27/2021 Not-Taking tiZANidine HCl 2 MG TAKE 1 TABLET BY MOUTH THREE TIMES DAILY NEEDED for 30 Active tiZANidine HCl 2 MG 1 tablet as needed Orally Three times a day for 30 days Active Baclofen 10 MG TAKE 1 TABLET BY MOUTH THREE TIMES DAILY WITH FOOD OR MILK for 90 Active Sertraline HCl 100 MG 1 tablet Orally On ce a day Active Levocetirizine Dihydrochloride 5 MG 1 tablet in the evening Orally Once a day Active Fenofibrate 160 MG 1 tablet Orally Once a day for 90 Active Losartan Potassium-HCTZ 100-12.5 MG 1 tablet Orally Once a day for 90 Active amLODIPine Besylate 5 MG 1 tablet Orally Once a day for 90 Active SOCIAL HISTORY Tobacco Use: Social History Observation Description Date Details (start date - stop date) Never Smoker NA - NA Sex Assigned At : Social History Observation Description Sex Assigned At Unknown Tobacco Use/Smoking Question Answer Notes Are you a nonsmoker VITAL SIGNS Temperature 97.9 degrees Fahrenheit 09/17/20 24 Blood pressure systolic 115 mm Hg 09/17/20 24 Blood pressure diastolic 79 mm Hg 024 Heart Rate 89 /min 09/17/2024 Respiratory Rate 18 /min 09/17/2024 Height 73 in 09/17/2024 Weight 272 lbs 09/17/2024 BMI 35.88 kg/m2 09/17/2024 Encounters Encounter Location Date Provider Diagnosis [facility] [address] [place] [address] 09/17/2024 Harry Cajigal Sacroiliitis M46.1 ; Spondylosis of lumbosacral region without myelopathy or radiculopathy M47.817 ; Low back pain M54.5 ; Other chronic pain G89.29 ; Postlaminectomy syndrome, not elsewhere classified M96.1 ; 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 09/17/2024 Low back pain (ICD-10 - M54.5) 09/17/2024 Other chronic pain (ICD-10 - G89.29) 09/17/2024 Postlaminectomy syndrome, not elsewhere classified (ICD-10 - M96.1) 09/17/2024 group home current use of opiate analgesic (ICD-10 - Z79.891) 09/17/2024 Obesity, unspecified classification, unspecified obesity type, [...] to nerve or other body parts. 09/17/2024 Myofascial pain (ICD-10 - M79.18) 09/17/2024 [...] Recommend to follow-up with neurosurgery after procedure. 09/17/2024 Other MDM: 2 or more chronic exacerbated illnesses and moderate risk morbidity secondary to interventional pain procedures and prescription medication management. PLAN OF TREATMENT Medication Medication Name Sig Start Date Stop Date Notes HYDROcodone-Acetaminophen 7.5-325 MG 1 tablet as needed Orally every 6 hrs for 30 days 09/17/2024 Treatment Notes Assessment Notes Spondylosis of lumbosacral r egion without myelopathy or radiculopathy Chronic, exacerbated. Expected to last greater than 1 year. Goals of pain management are to reduce his pain. 1. Continue opioid therapy. Minimal opioid use. Risks of opioid therapy include sedation, overdose, , respiratory depression, immunosuppression, hormone dysfunction, osteopenia, opioid-induced hyperalgesia. 2. History [...] injury to nerve or other body parts. Spondylosis without myelopat hy or radiculopathy, cervical region Chronic, exacerbated. Expected to last greater than 1 year. Goals of pain management are to reduce his pain. 1. X-ray cervical spine for neck pain ordered. 2. 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 Risks of interventional procedure includes bleeding, pain, infection, failure of treatment, injury to nerve or other body parts. Radiculopathy of lumbosacral region Chronic, exacerbated. Expected to last greater than [...] injury to nerve or other body parts. Other myositis, multiple sites Chronic, exacerbated. Expected to last greater than [...] injury to nerve or other body parts. Cervical disc disorder with radiculopathy, cervicothoracic region Chronic, exacerbated. Expected to last greater than [...] Recommend to follow-up with neurosurgery after procedure. Other MDM: 2 or more chron ic exacerbated illnesses and moderate risk morbidity secondary to interventional pain procedures and prescription medication management. Next Appt Details Follow Up: 2 Weeks, Reason: Procedure Notes * Category Sub-Category Detail Notes DCC: Caudal KERRIE Caudal Epidural Ster oid Injection Caudal epidural steroid injection Procedure: Caudal epidural steroid injection. Preoperative diagnosis: Lumbar radiculopathy. Postoperative diagnosis: Same. Medication used: 1cc Dexamethasone 10mg/cc, 3cc normal saline, 2cc 0.25% Bupivacaine. Sedation: IV propofol. IV: See nursing record. Technique: After obtaining informed consent, the patient was brought the procedure suite and placed in the prone position. A timeout was completed prior to the procedure. The sacral area was exposed and prepped with chlorhexadine. Sterile drapes were applied. The C-arm was used to identify the sacral hiatus in the lateral view. A 25g 1.5inch needle was used to anesthetize the skin with 3cc 1% lidocaine. A 22g 3.5inch spinal needle was inserted into the caudal epidural space under fluoroscopic guidance. After negative aspiration of heme/CSF, 1cc of omnipaque 240 was injected showing epidural spread. After negative aspiration of heme/CSF, the above medication was injected. The needle was removed without incident. The patient tolerated the procedure well without complication. The patient was transported and observed in the recovery area. Postoperative vitals were obtained and the patient discharged home in stable condition.Because of the complexity of the procedure and high risk of causing either emotional, psychologic or physical suffering/pain, it was considered medically necessary to provide moderate sedation for the patient's comfort. An RN who is trained to observe and monitor the patient during moderate sedation was with the patient the entire time of the sedation period. Moderate sedation was provided by the trained observer who assisted in the monitoring of the patient's level of consciousness and physiological status. This nurse monitored and recorded vital signs including blood pressure, pulse, oxygen saturation and continuous electrocardiogram (ECG) during this period. In addition, estimates of sedation depth as well as the amounts/timing of the intravenous sedative were also recorded. Progress Notes * Lauri CENTENODOB:1955 (69 yo M)Acc No.[id number]:09/17/2024 Progress Notes Patient: Lauri CENTENO Provider: Harry Merritt MD :1955 Age:69 Y Sex:Male Date:09/17/2024 Address:[address] [place], [place] [id number] Subjective: * Chief Complaints: * Procedure: Caudal KERRIE with sedation * HPI: Constitutional/Pain Eval: The patient is a 69-year-old male who presents clinic for procedure, caudal KERRIE with sedation. 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 Complains of low back and right leg pain, testicular pain. No further complaints. Follow-up Questionnaire: Pain Evaluation This patient encounter was conducted at the [facility]. The patient completed a questionnaire on the progress that has been made since the last office visit. This form was reviewed and the responses are included in this progress note.. Location of pain: low rt leg, rt testicle. Onset of pain: years ago. Average Pain Since Last Visit on Scale of 0 to 10: 9. Number describing interference w/enjoyment of life: 9. Relief from Injections/Medications: d - I am sort of better, but not much.. Improvement in functional ability: d - I feel I can do more but the pain is still very much limiting what I can or cannot do.. Level of Pain on 1-10 Scale w/ 10 being most severe- TODAY 8. Level of Pain on 1-10 Scale w/ 10 being most severe- LEAST 7. Level of Pain on 1-10 Scale w/ 10 being most severe- WORST 10. Pain Level on 1-10 Scale w/ 10 being most severe- OVERALL 8. Words that best describe the pain: shooting, aching, sharp. Duration of pain: constant. Aggravating/Associated factors of pain: exercise, walking, cold, standing, sitting, moving from sitting to standing. The Pain is Associated with: weakness. * ROS: Pain Management ROS: Patient Denies: GENERAL: weight or appetite changes, fever, chills, disturbed sleeping habits. Patient Denies: EYE: eye infections, blurred vision, double vision, blindness. Patient Denies: ENT: hearing loss, inflamed nose, hoarseness, sore throat, bloody nose, sinusitis, dizziness. Patient Denies: CARDIAC: chest pains, heart murmur, skipped beats. Patient Denies: GENITOURINARY bladder incontinence, difficulty urinating. Patient Denies: RESPIRATORY cough, coughing up blood, wheezing, shortness of breath, difficulty breathing on exertion. Patient Denies: GI constipation, diarrhea, blood in stools, nausea/vomiting. Patient Denies: NEUROLOGIC headaches, dizziness, falling, seizures, numbness, tremor. Patient Denies: ENDOCRINE hot and cold flashes. Patient Denies: HEMATOLOGICAL easy bruisability, difficulty in clotting the blood. Patient Denies: JOINTS joint or muscle limitation and pain other than the present illness. Patient Denies: PSYCHIATRIC: depression, mood swings, anxiety. Patient Denies: SKIN lacerations, abrasions, postules, nodules, tumors, breast changes. * Medical History: * Surgical History: cervical laminectomy lumbar laminectomy cervical fusion lumbar fusion cholecystectomy * Hospitalization/Major Diagno stic Procedure[facility]trouble breathing and 8ft fence fell on him 12/2022 * Family History: Father: . Mother: . * Social History: Tobacco Use: Tobacco Use/Smoking Are you a nonsmoker Education: How far did you get in your education?: high school. * Medications: TakingZolpidem Tartrate 10 MG Tablet 1 tablet at bedtime as needed Orally Once a day ALPRAZolam ER 1 MG Tablet Extended Release 24 Hour 1 tablet in the morning Orally Once a day Loperamide HCl 2 MG Capsule 1 capsule as needed Orally Four times a day Sertraline HCl 100 MG Tablet 1 tablet Orally Once a day Levocetirizine Dihydrochloride 5 MG Tablet 1 tablet in the evening Orally Once a day Fenofibrate 160 MG Tablet 1 tablet Orally Once a day Losartan Potassium-HCTZ 100-12.5 MG Tablet 1 tablet Orally Once a day amLODIPine Besylate 5 MG Tablet 1 tablet Orally Once a day tiZANidine HCl 2 MG Tablet TAKE 1 TABLET BY MOUTH THREE TIMES DAILY NEEDED tiZANidine HCl 2 MG Tablet 1 tablet as needed Orally Three times a day Baclofen 10 MG Tablet TAKE 1 TABLET BY MOUTH THREE TIMES DAILY WITH FOOD OR MILK HYDROcodone-Acetaminophen 7.5-325 MG Tablet 1 tablet as needed Orally every 6 hrs Taking Zolpidem Tartrate 10 MG Tablet 1 tablet at bedtime as needed Orally Once a day Taking ALPRAZolam ER 1 MG Tablet Extended Release 24 Hour 1 tablet in the morning Orally Once a day Taking Loperamide HCl 2 MG Capsule 1 capsule as needed Orally Four times a day Taking Sertraline HCl 100 MG Tablet 1 tablet Orally Once a day Taking Levocetirizine Dihydrochloride 5 MG Tablet 1 tablet in the evening Orally Once a day Taking Fenofibrate 160 MG Tablet 1 tablet Orally Once a day Taking Losartan Potassium-HCTZ 100-12.5 MG Tablet 1 tablet Orally Once a day Taking amLODIPine Besylate 5 MG Tablet 1 tablet Orally Once a day Taking tiZANidine HCl 2 MG Tablet TAKE 1 TABLET BY MOUTH THREE TIMES DAILY NEEDED Taking tiZANidine HCl 2 MG Tablet 1 tablet as needed Orally Three times a day Taking Baclofen 10 MG Tablet TAKE 1 TABLET BY MOUTH THREE TIMES DAILY WITH FOOD OR MILK Taking HYDROcodone- Acetaminophen 7.5-325 MG Tablet 1 tablet as needed Orally every 6 hrs Not-TakingDicyclomine HCl 20 MG Tablet 1 tablet Orally Three times a day Tracy 7.5-325 MG Tablet 1 tablet as needed Orally every 6 hrs Azithromycin 250 MG Tablet Oral Medication List reviewed and reconciled with the patientNot-Taking Dicyclomine HCl 20 MG Tablet 1 tablet Orally Three times a day Not-Taking Tracy 7.5-325 MG Tablet 1 tablet as needed Orally every 6 hrs Not-Taking Azithromycin 250 MG Tablet Oral Medication List reviewed and reconciled with the patient * Allergies: Latex: rashTape: rashPenicillin: rashno[Allergies Verified] Objective: * Vitals: Temp:97.9F, HR:89/min, BP:115/79mm Hg, Wt:272lbs, BMI:35.88Index, Ht: 73 in, RR:18/min, Ht-cm: 185.42 cm, Wt-k.38 kg. * Examination: ...: BACK: + SLR to RLE. Assessment: * Assessment: 1. Sacroiliitis - M46.1 (Primary) 2. Spondylosis of lumbosacral region without myelopathy or radiculopathy - M47.817 3. Low back pain - M54.5 4. Other chronic pain - G89.29 5. Postlaminectomy syndrome, not elsewhere classified - M96.1 6. group home current use of opiate analgesic - Z79.891 7. Obesity, unspecified classification, unspecified obesity type, unspecified whether serious comorbidity present - E66.9 8. Spondylosis without myelopathy or radiculopathy, cervical region - M47.812 9. Radiculopathy of lumbosacral region - M54.17 10. Other myositis, multiple sites - M60.89 11. Myofascial pain - M79.18 12. Cervical disc disorder with radiculopathy, cervicothoracic region - M50.13 Plan: * Treatment: 2. Spondylosis without myelopathy or radiculopathy, cervical region Notes: Chronic, exacerbated. Expected to last greater than 1 year. Goals of pain management are to reduce his pain. 1. X-ray cervical spine for neck pain ordered. 2. 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 Risks of interventional procedure includes bleeding, pain, infection, failure of treatment, injury to nerve or other body parts. 3. Radiculopathy of lumbosacral region Notes: Chronic, exacerbated. Expected to last greater than [...] injury to nerve or other body parts. 4. Other myositis, multiple sites Notes: Chronic, exacerbated. Expected to last greater than [...] injury to nerve or other body parts. 5. Cervical disc disorder with radiculopathy, cervicothoracic region Notes: Chronic, exacerbated. Expected to last greater than [...] Recommend to follow-up with neurosurgery after procedure. 6. Others Notes: MDM: 2 or more chronic exacerbated illnesses and moderate risk morbidity secondary to interventional pain procedures and prescription medication management. * Procedures: DCC: Caudal KERRIE: Caudal Epidural Steroid Injection Caudal epidural steroid injection Procedure: Caudal epidural steroid injection. Preoperative diagnosis: Lumbar radiculopathy. Postoperative diagnosis: Same. Medication used: 1cc Dexamethasone 10mg/cc, 3cc normal saline, 2cc 0.25% Bupivacaine. Sedation: IV propofol. IV: See nursing record. Technique: After obtaining informed consent, the patient was brought the procedure suite and placed in the prone position. A timeout was completed prior to the procedure. The sacral area was exposed and prepped with chlorhexadine. Sterile drapes were applied. The C-arm was used to identify the sacral hiatus in the lateral view. A 25g 1.5inch needle was used to anesthetize the skin with 3cc 1% lidocaine. A 22g 3.5inch spinal needle was inserted into the caudal epidural space under fluoroscopic guidance. After negative aspiration of heme/CSF, 1cc of omnipaque 240 was injected showing epidural spread. After negative aspiration of heme/CSF, the above medication was injected. The needle was removed without incident. The patient tolerated the procedure well without complication. The patient was transported and observed in the recovery area. Postoperative vitals were obtained and the patient discharged home in stable condition. Because of the complexity of the procedureand high risk of causing either emotional, psychologic or physicalsuffering/pain, it was considered medically necessary to provide moderatesedation for the patient's comfort. An RN who is trained to observe and monitorthe patient during moderate sedation was with the patient the entire time ofthe sedation period. Moderate sedation was provided by the trained observer whoassisted in the monitoring of the patient's level of consciousness andphysiological status. This nurse monitored and recorded vital signs includingblood pressure, pulse, oxygen saturation and continuous electrocardiogram (ECG)during this period. In addition, estimates of sedation depth as well as theamounts/timing of the intravenous sedative were also recorded.. * Procedure Codes: 60720 NJX INTERLAMINAR [id number] MOD SED SAME PHYS/QHP 5/>YRS * Preventive Medicine: PQRS: PQRS G8417: BMI above normal (overweight) and f/u plan documented., G8427: Patient is not currently taking any medications OR performance met., 1036F: Patient screened for tobacco use and identified as a non-user of tobacco.. Oswestry Score: Oswestry Score 22. * Follow Up: 2 Weeks * Images: * Sign off status: Completed true * Provider: Harry Merritt MD Date: 09/17/2024 History and Physical Notes * HPI (History of Present Illness) Category Sub-Category Detail Notes Category Not es Follow-up Questionnaire Average Pain Sin ce Last Visit on Scale of 0 to 10: 9 Number describing interferen ce w/enjoyment of life: 9 Relief from Injections/Medications: d - I am sort of better, but not much. Improvement in functional ability: d - I feel I can do more but the pain is still very much limiting what I can or cannot do. Pain Evaluation This patient encount er was conducted at the [facility]. The patient completed a questionnaire on the progress that has been made since the last office visit. This form was reviewed and the responses are included in this progress note. Onset of pain: years ago Location of pain: low rt leg, rt testi shira Duration of pain: constant Words that best describe the pain: shoot ing, aching, sharp Aggravating/Associated factors of pain: exercise, walking, cold, standing, sitting, moving from sitting to standing Level of Pain on 1-10 Scale w/ 10 being most severe- TODAY 8 Level of Pain on 1-10 Scale w/ 10 being most severe- LEAST 7 Level of Pain on 1-10 Scale w/ 10 being most severe- WORST 10 Pain Level on 1-10 Scale w/ 10 being most severe- OVERALL 8 The Pain is Associated with: weakness Examination Category Sub-Category Detail Notes Category Not es ... BACK: + SLR to RLE
--- OUTSIDE RECORDS SUMMARY | 2024-12-14 11:32 | XMS_ITS | Data Portability ---
Author Organization [facility], Main Office Address [address] [place] [address] Care Team Providers Care Electronics Assembler Name Role Phone CHERISE BARGER Primary Care Provider [phone] CHERISE BARGER Referring Provider BREN PATEL Plastics Engineer Unavailable ALDO CHOPRA Pain Management JALEN REYES Neurosurgeon Assessment Encounter Date Assessment Date Assessment LastModified by Organization Details LastModified Time 02/06/2024 02/06/2024 Assessment: Nicotine smoke: 1.5 ppd [id number] = 15 pack years Mild OSAHS, AHI = 9 Mild intermittent asthma Plan: The following were reviewed and explained to the patient: primary care/referral note [facility] home sleep study 01/11/23 AHI = 9 PFT 03/25/23 nl FEV1/FVC, FEV1 3.17 L (86%), TLC 6.34 L (84%), RV 1.86 L (74%), DLCO 47%, DLCO/VA 77% Methacholine challenge 05/31/23 FEV1 drops 21 % at level 5 Elevation in periodic limb movement index may be contributed by PAP compliance downloaded and interpreted x 20 minutes. Data reviewed and explained to the patient. Average apnea/hypopnea index (AHI) is 0.7. Patient used PAP > 4 hours 62% of the time. PAP is set at [id number]. PAP will remain at 5-15 cmH2O per patient request. Oxygen supplementation: none Patient is benefiting from PAP therapy. Encouraged patient to maintain PAP use more than 70% of the time. Statement of PAP use and benefits will be sent to the home care store. Educated the patient on problems and solutions associated with positive airway pressure (PAP) use. Difficulty tolerating pressure, mask leaks, intolerance of interface, nasal congestion, claustrophobic response, dry mouth, and unintentional mask removal during sleep were covered. Dry mouth is a normal occurrence for people who just start out on PAP therapy because they are not used to air blowing in to the throat to hold open. Dry mouth is exacerbated for people who wear nasal PAP mask and whose jaw drops open during sleep. Not only does this create a much less efficient therapy because of leakage, it also causes dry mouth. There are a couple solutions to help prevent this type of problem. A simple solution would be to wear a chinstrap which essentially holds the jaw in place. A second solution would be a switch to a full face mask which covers both the nose and mouth. Although this is another easy solution, using a full face mask for some could seem claustrophobic or confining. There is no silver bullet solution as no single mask is right for everybody. Sometimes it takes a bit of experimentation to find a PAP mask which best meets the patient's needs as well as fits comfortably. Another tactic is to use a humidifier on your PAP machine. Most new PAP machines have integrated humidifiers. Humidification is sullivan when dealing with symptoms of dry mouth because the humidifier can supply both warm and room temperate air. Even a small amount of humidity in the airflow will help nasal passages to stay hydrated. If a person is using both a full face mask and a PAP machine with a heated humidifier and is still experiencing dry mouth, an ill-fitted PAP mask might be causing the problem. Leakage can be caused by a mask that is to large or small, the wrong style mask, the cushion is degraded or simply because the mask's straps aren't adjusted correctly. If leakage occurs, dry air from the room can leak in while humidification escapes. The result is reduced humidification within the circuit and resulting in dry throat and mouth. Finally, beyond factors involving the PAP machine and mask, dry mouth can also be caused or worsened by dehydration. The general recommendation to during eight 8 oz. glasses of water a day might be too little for many people. When people drink large amounts of coffee or other caffeine beverages, or sweat a lot during the day, making sure to rehydrate is an important part of PAP therapy. Provided the patient with a list of local home care stores where positive airway pressure (PAP) units, accoutrement, and services are available. Home care store selection is based on patient's insurance carrier. Patient will setup an appointment with [facility] for supplies and pressure adjustments. A major predictor of success with use of PAP is follow-up with both the respiratory supplier and the treating physician. The download results can show the treating physician information about adherence to treatment, residual AHI while on treatment and presence of large mask leakage. This information is especially helpful if the patient has residual sleepiness despite treatment. General information on sleep disordered breathing, evaluation of sleep disordered breathing, treatment with PAP therapy, and living with PAP therapy were covered. We discussed with the patient the impact of weight on: Sleep disordered breathing Hypertension Mixed hyperlipidemia YVONNE DISH Cervicothoracolumb ar spondylosis We discussed with the patient the benefit of PAP therapy on: Sleep disordered breathing Mood disorders Headaches Maxillary sinusitis Hypertension VYONNE ED Educated the patient on sleep hygiene measures. Relaxing rituals to rest easy, understanding foods with positive and negative impact on sleep, creating a peaceful sleep environment, timing of exercise, using herbal sleep aids, and practicing sleep-friendly meditation were covered. To determine how much sleep is needed, the patient will assess where he falls on the spectrum, examine what lifestyle factors such as work schedules and stress are affecting the quality and quantity of sleep. In general, adults need 7-9 hours of sleep. Educated the patient regarding foods that promote sleep. These include but are not limited to cherries, bananas, toast, oatmeal, and warm milk. Educated the patient regarding foods and drinks to avoid before bedtime. These include but are not limited to aged cheese, chocolate, spicy foods, tomato-based sauces, soy, ginseng tea and processed meat. General information on bronchial asthma was covered. Educational video was shown. Peak flow meter usage instructed. Patient's personal best peak flow today is 640 L/min. Patient will monitor peak flow daily at a set time and again when symptoms of chest tightness, cough, dyspnea or wheezing occur. Patient will bring peak flow record to subsequent visits. The color of a traffic light will guide the patient's use of asthma medications: (1) Green means Go Zone. Peak flow: above 80% of personal best. Symptoms: Breathing is good, no cough or wheeze present, patient sleeps through the night and can work and play. Plan: Patient will continue the use of preventative medicine. (2) Yellow means Caution Zone. Peak flow: between 50-80% of personal best. Symptoms: Presence of first signs of a cold, exposure to known trigger, mild wheeze, tight chest and coughing especially night. Plan: Patient will add quick-relief medicine to preventative medicine. (3) Red means Danger Zone. Peak flow: below 50% of personal best. Symptoms: Asthma is getting worse quickly and medicine is not helping, breathing is hard and fast, nose opens widely when breathing, ribs showing when breathing, and patient cannot speak in full sentences. Plan: Patient will get help from a physician immediately. Advised to continue not to smoke. Continue albuterol HFA as needed. The patient does not know how to accurately administer the inhaler. Today, the patient was shown how to take this medication. The proper technique for delivering this medication was instructed. The patient expressed a clear understanding and demonstrated back how to use this medication. Without the proper technique, the patient will not reap the benefits of the treatment as the contents of the inhaler will not reach the lower airways as intended to be. Adherence to therapy is advocated. Nonadherence may lead to treatment failure, further progression of the condition, and other complications. Hospitals admissions are often the result of individuals not taking prescription medications accurately. Alternatively, greater adherence to medication regimens have shown to lower rates of hospitalization and decrease total medical costs in patients with chronic medical conditions. Advocated influenza vaccination annually and pneumonia vaccination MELVIN. Advocated weight loss through diet and exercise. Patient's ideal body weight according to height and gender is up to 200 lbs. Encouraged patient to adjust caloric intake to maintain/achieve ideal body weight, emphasizing on fruits, vegetables, whole grains, and fat-free or low-fat products. These include lean meats, poultry, fish, beans, eggs, and nuts and foods that are low in saturated fats, trans-fats, cholesterol, salt (sodium), and glycemic index. Stressed the importance of regular exercise up to the patient's capacity limits. In this case, we recommend 20 min daily walking, 2 days a week of resistance training. Patient to monitor BP daily and bring records to PCP for further management. Follow-up: 3 months, May 2024 Spent 60 minutes: 1. preparing to see the patient (eg, review of tests), 2. obtaining and/or reviewing separately obtained history, 3. performing a medically appropriate examination and evaluation, 4. counseling and educating the patient, 5. ordering medications and tests, 6. documenting clinical information in the electronic health record, 7. independently interpreting results, and 8. communicating results to the patient. Not available 02/06/2024 13:13:14 05/15/2024 05/15/2024 Assessment: Nicotine smoke: 1.5 ppd [id number] = 15 pack years Mild OSAHS, AHI = 9 Mild intermittent asthma Plan: The following were reviewed and explained to the patient: [facility] home sleep study 01/11/23 AHI = 9 PFT 03/25/23 nl FEV1/FVC, FEV1 3.17 L (86%), TLC 6.34 L (84%), RV 1.86 L (74%), DLCO 47%, DLCO/VA 77% PFT 03/08/24 nl FEV1/FVC, FEV1 3.17 L (86%), BD 80 mL = 3%, TLC 6.23 L (89%), RV 1.65 L (63%), DLCO 50%, DLCO/VA 68% Methacholine challenge 05/31/23 FEV1 drops 21 % at level 5 Elevation in periodic limb movement index may be contributed by PAP compliance downloaded and interpreted x 20 minutes. Data reviewed and explained to the patient. Average apnea/hypopnea index (AHI) is 0.4. Patient used PAP > 4 hours 46% of the time. PAP is set at 5-15 cmH2O. PAP will remain at 5-15 cmH2O per patient request. Keep ramp off. Keep humidifier level on automatic mode. Keep tube temperature on automatic mode. Keep EPR off. Oxygen supplementation: none Patient is benefiting from PAP therapy. Encouraged patient to maintain PAP use more than 70% of the time. Statement of PAP use and benefits will be sent to the home care store. Educated the patient on problems and solutions associated with positive airway pressure (PAP) use. Difficulty tolerating pressure, mask leaks, intolerance of interface, nasal congestion, claustrophobic response, dry mouth, and unintentional mask removal during sleep were covered. Dry mouth is a normal occurrence for people who just start out on PAP therapy because they are not used to air blowing in to the throat to hold open. Dry mouth is exacerbated for people who wear nasal PAP mask and whose jaw drops open during sleep. Not only does this create a much less efficient therapy because of leakage, it also causes dry mouth. There are a couple solutions to help prevent this type of problem. A simple solution would be to wear a chinstrap which essentially holds the jaw in place. A second solution would be a switch to a full face mask which covers both the nose and mouth. Although this is another easy solution, using a full face mask for some could seem claustrophobic or confining. There is no silver bullet solution as no single mask is right for everybody. Sometimes it takes a bit of experimentation to find a PAP mask which best meets the patient's needs as well as fits comfortably. Another tactic is to use a humidifier on your PAP machine. Most new PAP machines have integrated humidifiers. Humidification is sullivan when dealing with symptoms of dry mouth because the humidifier can supply both warm and room temperate air. Even a small amount of humidity in the airflow will help nasal passages to stay hydrated. If a person is using both a full face mask and a PAP machine with a heated humidifier and is still experiencing dry mouth, an ill-fitted PAP mask might be causing the problem. Leakage can be caused by a mask that is to large or small, the wrong style mask, the cushion is degraded or simply because the mask's straps aren't adjusted correctly. If leakage occurs, dry air from the room can leak in while humidification escapes. The result is reduced humidification within the circuit and resulting in dry throat and mouth. Finally, beyond factors involving the PAP machine and mask, dry mouth can also be caused or worsened by dehydration. The general recommendation to during eight 8 oz. glasses of water a day might be too little for many people. When people drink large amounts of coffee or other caffeine beverages, or sweat a lot during the day, making sure to rehydrate is an important part of PAP therapy. Provided the patient with a list of local home care stores where positive airway pressure (PAP) units, accoutrement, and services are available. Home care store selection is based on patient's insurance carrier. Patient will setup an appointment with [facility] for supplies and pressure adjustments. A major predictor of success with use of PAP is follow-up with both the respiratory supplier and the treating physician. The download results can show the treating physician information about adherence to treatment, residual AHI while on treatment and presence of large mask leakage. This information is especially helpful if the patient has residual sleepiness despite treatment. General information on sleep disordered breathing, evaluation of sleep disordered breathing, treatment with PAP therapy, and living with PAP therapy were covered. We discussed with the patient the impact of weight on: Sleep disordered breathing Hypertension Mixed hyperlipidemia YVONNE DISH Cervicothoracolumb ar spondylosis We discussed with the patient the benefit of PAP therapy on: Sleep disordered breathing Mood disorders Headaches Maxillary sinusitis Hypertension YVONNE ED Educated the patient on sleep hygiene measures. Relaxing rituals to rest easy, understanding foods with positive and negative impact on sleep, creating a peaceful sleep environment, timing of exercise, using herbal sleep aids, and practicing sleep-friendly meditation were covered. To determine how much sleep is needed, the patient will assess where he falls on the spectrum, examine what lifestyle factors such as work schedules and stress are affecting the quality and quantity of sleep. In general, adults need 7-9 hours of sleep. Educated the patient regarding foods that promote sleep. These include but are not limited to cherries, bananas, toast, oatmeal, and warm milk. Educated the patient regarding foods and drinks to avoid before bedtime. These include but are not limited to aged cheese, chocolate, spicy foods, tomato-based sauces, soy, ginseng tea and processed meat. General information on bronchial asthma was covered. Educational video was shown. Patient will monitor peak flow daily at a set time and again when symptoms of chest tightness, cough, dyspnea or wheezing occur. Patient will bring peak flow record to subsequent visits. The color of a traffic light will guide the patient's use of asthma medications: (1) Green means Go Zone. Peak flow: above 80% of personal best. Symptoms: Breathing is good, no cough or wheeze present, patient sleeps through the night and can work and play. Plan: Patient will continue the use of preventative medicine. (2) Yellow means Caution Zone. Peak flow: between 50-80% of personal best. Symptoms: Presence of first signs of a cold, exposure to known trigger, mild wheeze, tight chest and coughing especially night. Plan: Patient will add quick-relief medicine to preventative medicine. (3) Red means Danger Zone. Peak flow: below 50% of personal best. Symptoms: Asthma is getting worse quickly and medicine is not helping, breathing is hard and fast, nose opens widely when breathing, ribs showing when breathing, and patient cannot speak in full sentences. Plan: Patient will get help from a physician immediately. Advised to continue not to smoke. Continue albuterol HFA as needed. The patient does not know how to accurately administer the inhaler. Today, the patient was shown how to take this medication. The proper technique for delivering this medication was instructed. The patient expressed a clear understanding and demonstrated back how to use this medication. Without the proper technique, the patient will not reap the benefits of the treatment as the contents of the inhaler will not reach the lower airways as intended to be. Adherence to therapy is advocated. Nonadherence may lead to treatment failure, further progression of the condition, and other complications. Hospitals admissions are often the result of individuals not taking prescription medications accurately. Alternatively, greater adherence to medication regimens have shown to lower rates of hospitalization and decrease total medical costs in patients with chronic medical conditions. Advocated influenza vaccination annually and pneumonia vaccination MELVIN. Advocated weight loss through diet and exercise. Patient's ideal body weight according to height and gender is up to 200 lbs. Encouraged patient to adjust caloric intake to maintain/achieve ideal body weight, emphasizing on fruits, vegetables, whole grains, and fat-free or low-fat products. These include lean meats, poultry, fish, beans, eggs, and nuts and foods that are low in saturated fats, trans-fats, cholesterol, salt (sodium), and glycemic index. Stressed the importance of regular exercise up to the patient's capacity limits. In this case, we recommend 20 min daily walking, 2 days a week of resistance training. Patient to monitor BP daily and bring records to PCP for further management. Follow-up: 1 year, May 2025 [email or web address] Not available 05/15/2024 11:50:10 Plan of Treatment Reminders Order Date Submit Date Provider Last Modified By Organization Details Last Modified Time Details Appointments Follow Up 2024 10:15A M JOVANI See Not available Not available Not available Follow Up 2024 10:00A M Andres Damian MD Not available Not available Not available Lab PSA, total + free, serum or plasma [email or web address] - Out[facility] Lab, [address] [place], [address], 04/11/2024 08:36:15 lipid panel, serum [address] Out[facility] Lab, [address] [place], [address], 04/11/2024 08:36:15 CMP, serum or plasma [address] Outpatient Lab, [address] [place], [address], 04/11/2024 08:36:15 CK (creatine kinase), total, serum [address] Out[facility] Lab, [address] [place], [address], 04/11/2024 08:36:15 CBC w/ auto diff [address] Outpatient Lab, [address] [place], [address], 04/11/2024 08:36:16 TSH, serum or plasma [address] Outpatient Lab, [address] [place], [address], 04/11/2024 08:36:16 vitamin B12 + folate, serum or blood 2023 024 [facility], [address] [place], [address], 07/05/2024 20:17:13 Referral None recorded. Procedures None recorded. Surgeries None recorded. Imaging None recorded. Medication Orders albuterol sulfate HFA 90 mcg/actua tion aerosol inhaler 2023 024 [email or web address] #[id number], [address] [place], [place], [id number], 02/06/2024 12:48:07 dicyclomi ne 10 mg capsule 2023 024 [email or web address] #[id number], [address] [facility], [place], [place], [id number], 10/10/2024 14:42:26 albuterol sulfate HFA 90 mcg/actua tion aerosol inhaler 2023 024 [facility] #[id number], [address] [facility], [place], [place], [id number], 10/10/2024 11:52:00 prednison e 20 mg tablet 2023 024 [facility] #[id number], [address] [facility], [place], [place], [id number], 10/10/2024 11:51:25 dicyclomi ne 10 mg capsule 2023 024 [facility] #[id number], [address] [facility], [place], [place], [id number], 10/10/2024 14:42:26 nystatin 100,000 unit/gram topical cream 2023 024 [facility] #[id number], [address] [facility], [place], [place], [id number], 10/10/2024 14:29:58 zolpidem 10 mg tablet 2023 024 [facility] #[id number], [address] [facility], [place], [place], [id number], 10/10/2024 12:15:30 Patient TargetsNo targets recorded. Patient Instructions Encounter Date Encounter Id Patient Instructions Last Modified By Organization Details Last Modified Time 02/06/2024 [id number] complete PFT w/ post bronchodilator spirometry* RONALD Not available 03/09/2024 10:15:20 04/04/2024 [id number] dementia rating scale-2* [email or web address] Not available 04/04/2024 11:10:09 depression screening* [email or web address] Not available 04/04/2024 11:10:18 alcohol misuse* Not available 04/04/2024 11:10:22 Timed Up and Go test (TUG)* [email or web address] Not available 04/04/2024 11:10:30 multi-dimensiona l health assessment questionnaire* Not available 04/04/2024 11:10:13 Personalized Hea lt Plan and Screening Recommendations Advance Directives - Do you have one? No Advance Directives - Do we have your advance directive on file in your health record? Primary Prevention/Interven tion (prevents or decreases the chance of common diseases from occurring) Smoking Risk: Non Smoker Alcohol Misuse Screening: Negative Weight: Appropriate Overwei ght continue your current weight loss efforts try to lose 5% of your body weight try to lose 10% of your body weight Physical activity: Appropriate physical activity minimum of 10-20 minutes of activity that causes mild breathlessness/day minimum of 20-30 minutes activity that causes mild breathlessness/day Nutrition: Good Average Fall Risk (screened today): Low Intermediate Vaccines Pneumococcal: Ordered Recommended today Recommended today, but you have declined No further needed Influenza: Your next one in the fall of this year Chronic Disease Risks Stroke: Low Risk Intermediate Risk I have no recommendations Act yessica diagnosis, Continue current treatment plan Heart Attack: Low risk Intermediate Risk I have no recommendations Act yessica diagnosis, Continue current treatment plan Clogging of the Arteries: Low risk Intermediate Risk I have no recommendations Act yessica diagnosis, Continue current treatment plan Diabetes: Low Risk I have no recommendations Secondary Prevention/Interven tion (detects treatable diseases before they may cause symptoms, disability, or ) Prostate Cancer Screening: No digital rectal exam screening necessary Colon Cancer Screening: Colonoscopy No screening necessary Date Screening Last Performed: 2021 Eye Disease Screening: No Eye exam necessary Dementia Risk: Low I have no recommendations Depression Screening: Negative [email or web address] Not available 04/04/2024 11:06:40 05/15/2024 [id number] complete PFT w/ post bronchodilator spirometry* Not available 05/15/2024 11:53:24 Reason for Referral None Reported. Results Created Date Observation Date Name Description Value Unit Range Abnormal Flag Note LastModifiedBy Organization Detail LastModifiedTime 03/09/20 24 03/08/2024 compl ete PFT w/ post bronc hodil ator cristobal metry * No observ ation record ed. [facility]) [address] [place], [address], 03/09/2024 10:15:20 09/12/20 24 09/12/2024 MRI, lumba r spine , w/wo contr ast No observ ation record ed. [address], [place], [address], 09/12/2024 15:11:57 09/12/20 24 09/12/2024 XR, lumba r spine , 2 view No observ ation record ed. [address], [place], [address], 09/13/2024 08:08:57 10/01/20 24 10/01/2024 XR, neck No observ ation record ed. [address] [address], [place], [address], 10/01/2024 10:09:36 Result Notes None recorded. Problems Name Problem SNOMED Code Status Onset Date Resolution Date Notes Provider Name and Address Organization Details Recorded Time Chronic back pain 858957984 Active Not Available [facility] 3 10:54:14 Generalized anxiety disorder 12225049 Active Not Available [facility] 3 10:54:14 Gastroesophag eal reflux disease 520132666 Active Not Available [facility] 3 10:54:14 Migraine 76995395 Active Not Available [facility] 3 10:54:14 Seborrheic dermatitis 68173139 Active Not Available [facility] 3 10:54:14 Hyperlipidemi a 45231594 Active Not Available [facility] 3 10:54:14 Essential hypertension 36266367 Active Not Available [facility] 3 10:54:14 Tinea corporis 88955007 Active Not Available [facility] 3 10:54:15 Obstructive sleep apnea syndrome 17606399 Active 2022 Not Available [facility] 3 10:54:15 Vocal cord paralysis 856962188 Active 2022 Not Available [facility] 3 10:54:14 Mild intermittent asthma 676730217 Active 2023 Andres Damian MD [address], [place], [address] , [facility] 4 12:45:50 Screening for malignant neoplasm of prostate Active 2023 JOVANI See [address], [place], [address] , [facility] 4 11:04:20 Irritable bowel syndrome with diarrhea 596792795 Active 2023 JOVANI See [address], [place], [address] , [facility] 4 11:19:17 Allergic reaction to drug 120882456 Active 2023 JOVANI See [address], [place], [address] , [facility] 4 15:31:42 Contact dermatitis 93536283 Active 2023 Maura Pastor RN [facility], [facility] 4 10:05:41 Serum vitamin B12 below reference range 899520009 Active 2023 JOVANI See [address], [place], [address] , [facility] 4 15:19:50 Candidiasis of skin 75392831 Active 2023 JOVANI See [address], [place], [address] , [facility] 4 14:28:30 Notes:Medical History: Cereb ral atrophy Anxiety with panic attacks Migraine headaches Bruxism Left vocal cord paralysis Maxillary sinusitis Eosinophils 400/mm3 IgE 152 kU/L AAT PiMM 199 mg% Methacholine (+) mild intermittent asthma Obesity with mild OSAHS, AHI = 9, 01/11/23, on autoCPAP c/o Provider Plus Hypertension Mixed hyperlipidemia YVONNE Diarrhea-predominant IBS ED DISH Cervicothoracolumbar spondylosis Seborrheic dermatitis Tinea corporis Procedure History: C3-C5 fusion 1999 L5-S1 fusion 2000 Right shoulder surgery 2007 Cholecystectomy 2019 C5-C7 fusion 2022 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 Procedures Surgical History Date Name Laterality Status Provider Name and Address Organization Details Recorded Time 04/04/20 Medicare Wellness CPT Code, subsequent completed Mavis Bardales RN [facility] 03/30/2024 12:36:16 06/07/20 Neck spine disk surgery completed Flower Do RN [facility] 12/21/2023 10:44:37 03/23/20 Ear Irrigation completed Corina Brewer MD [address], [address], [facility] 03/23/2023 13:35:25 Orthopedic Surgery completed Not Available [facility] 01/05/2023 02:42:54 other completed Not Available [facility] 01/05/2023 02:42:54 other completed Not Available [facility] 01/05/2023 02:42:54 Cholecystectomy completed Not Available [facility] 01/05/2023 02:42:54 Imaging Results Imaging Date Name Status LastModified by Organization Details LastModified Time 03/08/2024 complete PFT w/ post bronchodilator spirometry* completed [facility] ([facility]) [address] [place], [address], 03/09/2024 10:15:20 09/12/2024 MRI, lumbar spine, w/wo contrast completed [address], [address], 09/12/2024 15:11:57 09/12/2024 XR, lumbar spine, 2 view completed [address], [address], 09/13/2024 08:08:57 10/01/2024 XR, neck completed [address], [place], [address], 10/01/2024 10:09:36 Procedure Notes None recorded. Medical Equipment None Reported. Allergies Allergen ID Allergen Name Allergen Category Reaction Reaction Severity Criticality Documentation Date Start Date Code Code System Note Provider Name and Address Organization Details Recorded Time 4320 Product containin g penicilli n and antibioti c (product) medicatio n Not available Not available Not available 01/05/2023 63670 05 SNOMED Not Available [facility] 3 02:55:43 99850 latex environme nt,medica tion rash Not available Not available 04/04/2024 07073 91 RxNorm Maura Pastor RN [facility] [employer] [facility] [employer] 4 10:41:56 48484 clonazepa m medicatio n itching moderate Not available 09/24/2024 2598 RxNorm JOVANI See [address] [facility] [address], [place], [address] [facility] 4 15:32:15 Medications Name Sig Start Date Stop Date Status Note LastModified by Organization Details LastModified Time Prescript ion - New active Not Available Not Available No t Available cyclobenz aprine 10 mg tablet TK 1 T PO TID active Not Available Not Available No t Available amoxicill in 500 mg capsule TAKE 1 CAPSULE BY MOUTH EVERY 6 HOURS UNTIL ALL TAKEN 12/21 completed Not Available Not Available Not Available ketoconaz ole 2 % shampoo APPLY TO THE AFFECTED AREA(S), LATHER, LEAVE IN PLACE FOR 5 MINUTES, AND THEN RINSE OFF WITH WATER BY TOPICAL ROUTE ONCE DAILY 01/23 completed Not Available Not Available Not Available tizanidin e 2 mg tablet TAKE 1 TABLET BY MOUTH THREE TIMES DAILY NEEDED 04/04 completed Not Available Not Available Not Available loperamid e 2 mg capsule TAKE 1 CAPSULE BY MOUTH TWICE DAILY NEEDED active Not Available Not Available No t Available azithromy trace 250 mg tablet ZPK 01/23 completed Not Available Not Available Not Available alprazola m 1 mg tablet TAKE 1 TABLET BY MOUTH TWO TIMES DAILY NEEDED. 09/03 completed switched to clonazep am . Not Available Not Available Not Available fluconazo le 150 mg tablet TAKE 1 TABLET BY MOUTH EVERY DAY FOR 3 DAYS 12/17 completed Not Available Not Available Not Available hydrocodo ne 5 mg-acetam inophen 325 mg tablet TAKE 1 TABLET BY MOUTH EVERY 6 HOURS NEEDED FOR PAIN 09/07 completed Not Available Not Available Not Available prednison e 20 mg tablet Take 2 tabs PO twice daily for 2 days; 1 tab PO twice daily for 5 days; 1/2 tab PO twice daily for 2 days; 1/2 tab PO once for 1 day. TAKE 2ND DOSE EVERYDAY AT NOON-10 DAY COURSE 10/10 completed Not Available Not Available Not Available sertralin e 100 mg tablet TAKE 2 TABLETS BY MOUTH DAILY active Not Available Not Available No t Available clonazepa m 1 mg tablet TAKE 1 TABLET BY MOUTH TWICE DAILY 10/02 completed itching Not Available Not Available Not Available clobetaso l 0.05 % topical cream APPLY A THIN LAYER TO THE AFFECTED AREA TWICE DAILY 01/28 completed Not Available Not Available Not Available hydroxyzi ne pamoate 50 mg capsule TAKE 1 CAPSULE BY MOUTH FOUR TIMES DAILY 05/31 completed Not Available Not Available Not Available Nexium 40 mg capsule,d elayed release active Not Available Not Available Not Available amlodipin e 5 mg tablet TK 1 T PO D 07/22 completed Not Available Not Available Not Available sulfameth oxazole 800 mg-trimet hoprim 160 mg tablet TAKE 1 TABLET BY MOUTH EVERY 12 HOURS 07/20 completed Not Available Not Available Not Available hydrocodo ne 10 mg-acetam inophen 325 mg tablet Take 1-2 TABLET EVERY 4 HOURS by oral route prn. active Not Available Not Available No t Available omeprazol e 40 mg capsule,d elayed release TK 1 C PO QD 01/23 completed Not Available Not Available Not Available sildenafi l 100 mg tablet Take 1 tablet every day by oral route as needed. 10/10 completed Not Available Not Available Not Available triamcino lone acetonide 0.1 % topical cream Apply 1 applicat ion twice a day by topical route for 30 days. active Not Available Not Available No t Available ondansetr on 8 mg disintegr ating tablet DISSOLVE 1 TABLET ON THE TONGUE THREE TIMES DAILY NEEDED 12/21 completed Not Available Not Available Not Available oxycodone -acetamin ophen 5 mg-325 mg tablet TK 1 T PO Q 6 H PRN 11/13 completed Not Available Not Available Not Available alprazola m 0.5 mg tablet TAKE 1 TABLET BY MOUTH THREE TIMES DAILY NEEDED active Not Available Not Available No t Available alprazola m 0.25 mg tablet TAKE 1 TABLET BY MOUTH EVERY NIGHT AT BEDTIME NEEDED active Not Available Not Available No t Available famotidin e 20 mg tablet TK 1 T PO BID active Not Available Not Available No t Available dicyclomi ne 20 mg tablet TAKE 1 TABLET BY MOUTH FOUR TIMES DAILY active Not Available Not Available No t Available meclizine 25 mg tablet Take 1 tablet 3 times a day by oral route as needed. 12/21 completed Not Available Not Available Not Available baclofen 10 mg tablet TAKE 1 TABLET BY MOUTH THREE TIMES DAILY WITH FOOD OR MILK 04/04 completed Not Available Not Available Not Available amlodipin e 10 mg tablet TAKE 1 TABLET BY MOUTH DAILY active Not Available Not Available No t Available hydrocodo ne 7.5 mg-acetam inophen 325 mg tablet TAKE 1 TABLET BY MOUTH EVERY 6 HOURS NEEDED active Not Available Not Available No t Available cephalexi n 500 mg capsule TAKE 1 CAPSULE BY MOUTH EVERY 8 HOURS 02/26 completed Not Available Not Available Not Available nystatin 100,000 unit/gram topical cream APPLY TO THE AFFECTED AREA(S) under arms BY TOPICAL ROUTE 2 TIMES PER DAY active Not Available Not Available No t Available hydrocodo ne 7.5 mg-acetam inophen 750 mg tablet TAKE 1 TABLET BY MOUTH EVERY 6 HOURS NEEDED active Not Available Not Available No t Available clotrimaz ole-betam ethasone 1 %-0.05 % topical cream APPLY EXTERNAL LY TO THE AFFECTED AND SURROUND ING AREAS TWICE DAILY IN THE MORNING AND IN THE EVENING FOR 2 WEEKS 07/20 completed Not Available Not Available Not Available lisinopri l 10 mg tablet Take 1 tablet every day by oral route for 90 days. active Not Available Not Available No t Available omeprazol e 20 mg capsule,d elayed release Take 1 capsule every day by oral route. active Not Available Not Available No t Available gentamici n 0.1 % topical cream APPLY A SMALL AMOUNT TO THE AFFECTED AREA BY TOPICAL ROUTE 3 TIMES PER DAY 01/28 completed Not Available Not Available Not Available diclofena c sodium 75 mg tablet,de layed release Take 1 tablet twice a day by oral route. active Not Available Not Available No t Available cyanocoba she (vit B-12) 1,000 mcg sublingua l tablet Place 1 tablet twice a day by sublingu al route for 30 days. 2023 active Not Available Not Available Not Avai lable lorazepam 1 mg tablet Take 1 tablet every day by oral route. 12/21 completed Not Available Not Available Not Available oxycodone -acetamin ophen 7.5 mg-325 mg tablet TAKE 1 TABLET BY MOUTH EVERY 4 HOURS NEEDED FOR PAIN 12/21 completed Not Available Not Available Not Available zolpidem 10 mg tablet TAKE 1 TABLET BY MOUTH EVERY DAY active Not Available Not Available No t Available albuterol sulfate HFA 90 mcg/actua tion aerosol inhaler INHALE 1 PUFF BY MOUTH EVERY 4 HOURS NEEDED 2023 active needs refill Not Available Not Available Not Available ketoconaz ole 2 % topical cream APPLY TOPICALL Y TO THE AFFECTED AREA EVERY DAY 12/21 completed Not Available Not Available Not Available colestipo l 1 gram tablet TAKE 2 TABLETS BY MOUTH EVERY DAY BEFORE MEALS 09/07 completed Not Available Not Available Not Available dicyclomi ne 10 mg capsule Take 1 capsule 4 times a day by oral route before meal(s) for 90 days, for stool urgency. 10/10 completed dose adjustme nt Not Available Not Available Not Available amoxicill in 875 mg-potass ium clavulana te 125 mg tablet TK 1 T PO Q 12 H active Not Available Not Available No t Available Zomig 5 mg nasal spray Take 1 spray as needed by nasal route. 2013 active Not Available Not Available Not Avai lable Cialis 20 mg tablet Take 1 tablet by oral route as needed for 30 days. 01/23 completed Not Available Not Available Not Available fluocinol one 0.01 % scalp oil and shower cap APPLY THIN LAYER TO DAMP SCALP BY TOPICAL ROUTE MASSAGE WELL AND COVER. LEAVE ON FOR 4 HOURS OR OVERNIGH T THEN WASH OFF 01/23 completed Not Available Not Available Not Available fenofibra te 160 mg tablet TAKE 1 TABLET BY MOUTH DAILY active Not Available Not Available No t Available losartan 100 mg-hydroc hlorothia zide 12.5 mg tablet TAKE 1 TABLET BY MOUTH DAILY active Not Available Not Available No t Available Symbicort 160 mcg-4.5 mcg/actua tion HFA aerosol inhaler Inhale 2 puffs every 6 hours by inhalati on route as needed for 30 days. 12/21 completed Not Available Not Available Not Available levocetir izine 5 mg tablet TAKE 1 TABLET BY MOUTH DAILY active Not Available Not Available No t Available Suprep Bowel Prep Kit 17.5 gram-3.13 gram-1.6 gram oral solution MIX AND DRINK DIRECTED 09/07 completed Not Available Not Available Not Available Arnuity Ellipta 100 mcg/actua tion powder for inhalatio n Inhale 1 puff every day by inhalati on route as directed for 30 days. 12/21 completed Not Available Not Available Not Available Viberzi 100 mg tablet Take by oral route for 30 days. 01/12 completed Not Available Not Available Not Available ID NOW COVID-19 Test Kit TEST DIRECTED TODAY 07/20 completed Not Available Not Available Not Available Vitals Date Recorded Body height Body mass index (BMI) Body weight Body temperature Heart rate Oxygen saturation Oxygen saturation in Arterial blood by Pulse oximetry Systolic blood pressure Diastolic blood pressure Provider Name and Address Organization Details Last Updated DateTime 185.42 cm 36.8 kg/m2 139235. 27 g 97.9 [degF] 97 /min 96 % 96 % 116 mm[Hg] 76 mm[Hg] Linda Sam MA [employer] [facility] [employer] 11:37:11 Date Recorded Heart rate Respiratory rate Provider N niall and Address Organization Details Last Updated DateTime 02/06/2024 97 /min 15 /min Andres Damian MD [address] [place] [address], [facility] [address], [place], [address], [place] [employer] 02/06/2024 12:48:39 Date Recorded Body height Body mass index (BMI) Body weight Body temperature Respiratory rate Heart rate Oxygen saturation Oxygen saturation in Arterial blood by Pulse oximetry Systolic blood pressure Diastolic blood pressure Provider Name and Address Organization Details Last Updated DateTime 4 185.42 cm 37.2 kg/m2 349042. 05 g 98.4 [degF] 16 /min 79 /min 94 % 94 % 108 mm[Hg] 70 mm[Hg] Maura Pastor RN [facility] [employer] [facility] 4 10:45:50 Date Recorded Body height Body mass index (BMI) Body weight Heart rate Oxygen saturation Oxygen saturation in Arterial blood by Pulse oximetry Body temperature Systolic blood pressure Diastolic blood pressure Provider Name and Address Organization Details Last Updated DateTime 4 185.42 cm 37.1 kg/m2 705011. 46 g 77 /min 94 % 94 % 97.1 [degF] 112 mm[Hg] 80 mm[Hg] Zakiya Quinn MA [facility] [employer] [facility] 4 11:08:06 Date Recorded Heart rate Respiratory rate Provider N niall and Address Organization Details Last Updated DateTime 05/15/2024 77 /min 15 /min Andres Damian MD [address] [place] [address], [address], [facility] [employer] [facility] 05/15/2024 11:56:31 Date Recorded Body height Body mass index (BMI) Body weight Body temperature Heart rate Oxygen saturation Oxygen saturation in Arterial blood by Pulse oximetry Respiratory rate Systolic blood pressure Diastolic blood pressure Provider Name and Address Organization Details Last Updated DateTime 4 185.42 cm 37.5 kg/m2 334997. 23 g 97.97 [degF] 72 /min 95 % 95 % 16 /min 134 mm[Hg] 90 mm[Hg] Maura Pastor RN [facility] [employer] [facility] 4 11:41:41 Date Recorded Body height Body mass index (BMI) Body weight Body temperature Heart rate Oxygen saturation Oxygen saturation in Arterial blood by Pulse oximetry Systolic blood pressure Diastolic blood pressure Provider Name and Address Organization Details Last Updated DateTime 4 185.42 cm 37.5 kg/m2 613602. 23 g 98.4 [degF] 85 /min 95 % 95 % 122 mm[Hg] 80 mm[Hg] Maura Pastor RN [facility] 4 11:56:06 Social History Question Answer Notes LastModified by Organization Details LastModified Time Tobacco Smoking Status Former Smoker quit 14 years ago last reviewed 04/29/21 Not Available [employer] 01/05/2023 02:30:25 Do You Have An Advance Directive? No [id number] Information not available 01/05/2023 What Is Your Level Of Alcohol Consumption? None Quit Drinking 30 Years Ago [id number] [id number] Information not available 01/05/2023 What Is Your Level Of Caffeine Consumption? Moderate [id number].0301 [id number] Information not available 01/05/2023 How Much Tobacco Do You Chew? None MIGRATION.0301 [id number] Information not available 01/05/2023 In The 14 Days Before Symptom Onset, Have You Had Close Contact With A Laboratory-conf irmed COVID-19 While That Case Was Ill? No [id number].0301 [id number] Information not available 01/05/2023 In The 14 Days Before Symptom Onset, Have You Had Close Contact With A Person Who Is Under Investigation For COVID-19 While That Person Was Ill? No [id number] [id number] Information not available 01/05/2023 What Type Of Diet Are You Following? REGULAR MIGRATION.0301 [id number] Information not available 01/05/2023 Which Illicit Or Recreational Drugs Have You Used? No MIGRATION.0301 [id number] Information not available 01/05/2023 Do You Have An Electrostatic Air Filter? 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 16+yearssincelastc igarette [email or web address] Information not available 03/02/2023 Do You Have A Humidifier? No Information not available 02/06/2024 Where Do You Live? SingleLevelHouse Information not available 02/06/2024 Do You Have Moisture Problems In Your Home? No Information not available 02/06/2024 What Was The Date Of Your Most Recent Tobacco Screening? 05/15/2024 [email or web address] Information not available 05/15/2024 Do You Have Any Pets? Yes 4 Dogs At Home [email or web address] Information not available 03/02/2023 Do You Use Your Seat Belt Or Car Seat Routinely? Yes Information not available 02/06/2024 Do You Have Smoke And Carbon Monoxide Detectors In Your Home? Yes Information not available 02/06/2024 Are You Passively Exposed To Smoke? No MIGRATION.0301 [id number] Information not available 01/05/2023 Do You Or Have You Ever Used Smokeless Tobacco? Never Used Smokeless Tobacco MIGRATION.0301 [id number] Information not available 01/05/2023 Do You Feel Stressed (tense, Restless, Nervous, Or Anxious, Or Unable To Sleep At Night)? [id number] Information not available 02/06/2024 Do You Use Any Illicit Or Recreational Drugs? No [email or web address] Information not available 03/02/2023 Do You Use Sunscreen Routinely? No MIGRATION.0301 [id number] Information not available 01/05/2023 Have You Recently Traveled Abroad? No Information not available 02/06/2024 Do You Have Any Dietary Restrictions? No Information not available 02/06/2024 Sex: Unknown Functional Status Question Answer Note LastModified by Organizat ion Details LastModified Time What is your exercise level? None [id number] Information not available 01/05/2023 Mental Status None recorded. Family History Relationship Description Onset Age of this Age Resolved Age Notes LastModified by Organization Details LastModified Time Mother Myocardial infarction [id number] Not available 01/05/2023 02:42:55 Mother Diabetes mellitus MIGRATION.900 [id number] Not available 01/05/2023 02:42:56 Mother Arthritis MIGRATION.079 [id number] Not available 01/05/2023 02:42:56 Mother Hypertensive disorder MIGRATION.724 [id number] Not available 01/05/2023 02:42:56 Mother Cerebrovascu lar accident MIGRATION.009 [id number] Not available 01/05/2023 02:42:56 Maternal Grandfather Myocardial infarction MIGRATION.079 [id number] Not available 01/05/2023 02:42:56 Father Alcoholism MIGRATION.852 [id number] Not available 01/05/2023 02:42:56 Father Malignant tumor of pancreas MIGRATION.600 [id number] Not available 01/05/2023 02:42:56 Father Kidney disease MIGRATION.411 [id number] Not available 01/05/2023 02:42:56 Brother Malignant tumor of pancreas MIGRATION.663 [id number] Not available 01/05/2023 02:42:56 Brother Heart disease MIGRATION.614 [id number] Not available 01/05/2023 02:42:56 Sister Malignant neoplasm of liver MIGRATION.370 [id number] Not available 01/05/2023 02:42:56 Sister Arthritis MIGRATION.633 [id number] Not available 01/05/2023 02:42:56 Daughter Migraine Not available 02/06/2024 12:50:16 Medical History Condition Response ALLERGIES/HAYFEVER Y HEARTBURN / REFLUX Y HIGH CHOLESTEROL / HYPERLIPIDEMIA Y BOWEL PROBLEMS Y BACK / NECK PROBLEMS Y SLEEP DISORDER Y MIGRAINES Y HEADACHES/MIGRAINES Y ULCERS Y HYPERTENSION Y CARDIAC ARRHYTHMIA Y ANXIETY DISORDER Y GERD/NAUSEA Y Immunizations Vaccine Type Date Status Note Provider Nam e and Address Organization Details Recorded Time COVID-19, mRNA, LNP-S, PF, 100 mcg/0.5mL dose or 50 mcg/0.25mL dose 1 completed Not Available Counts include 234 beds at the [facility] 06/15/2023 10:54:15 SARS-COV-2 (COVID-19) vaccine, UNSPECIFIED 1 completed Not Available Counts include 234 beds at the [facility] 06/15/2023 10:54:15 SARS-COV-2 (COVID-19) vaccine, UNSPECIFIED 1 completed Not Available Counts include 234 beds at the [facility] 06/15/2023 10:54:15 DTaP 8 completed Not Available Counts include 234 beds at the [facility] 06/15/2023 10:54:15 SARS-COV-2 (COVID-19) vaccine, UNSPECIFIED 3 completed SILVIO Patel, [facility] 12/21/2023 10:47:54 SARS-COV-2 (COVID-19) vaccine, UNSPECIFIED 3 completed SILVIO Patel, [facility] 12/21/2023 10:48:01 Respiratory syncytial virus (RSV) MAB, unspecified 3 completed SILVIO Patel, [facility] 12/21/2023 10:48:18 Past Encounters Encounter ID Performer Location Encounter Start Date Encounter Closed Date Diagnosis/Indication Diagnosis SNOMED-CT Code Diagnosis ICD10 Code Diagnosis Note [id number] [facility] [address] [place] [address] 02/26/2021 00:00:00 02/27/2021 06:23:28 [id number] [facility] Podiatry Francisca Bruno [address] [place] [address] 03/09/2021 00:00:00 03/10/2021 10:20:09 [id number] _ATHENA_M IGRATION_ DEFAULT_1 _1 , 04/29/2021 00:00:00 04/29/2021 11:45:04 [id number] [facility] [address] [address] 09/07/2021 00:00:00 09/07/2021 22:27:08 [id number] [facility] [address] [place] [address] 09/28/2021 00:00:00 09/28/2021 18:57:24 [id number] [facility] [address] [place] [address] 07/20/2022 00:00:00 07/21/2022 06:11:19 [id number] [facility] [address] [place] [address] 12/17/2022 00:00:00 12/18/2022 10:21:25 [id number] Corina Brewer MD [facility] [address] [place] [address] [place] [address] 01/12/2023 09:28:28 01/12/2023 10:03:39 Dyspnea [id number] R06.00 Take alprazolam as needed for sob Nausea [id number] R11.0 Anxiety 13652764 F41.9 Use alprazolam as needed [id number] Bren Patel [facility] Pulmon[facility] [place] [address] [place] [address] 03/02/2023 15:09:18 03/04/2023 08:31:30 Dyspnea on exertion 50712292 R06.09 Unsure etiologyCh klever labs and PFTFurther recommenda tions after review of testing Obstructiv e sleep apnea syndrome 60806942 G47.33 Recent diagnosisH ome study 01/2023 with AHI 9 cm P2UStfzwjd ed use of current PAP and troublesho oting masksDiscu ssed the risks of uncorrecte d JV, including History of exposure to second hand smoke 389574729 Z77.22 From parents Ex-smoker 7468922 Z87.89 1 Not a candidate for LDCT Body mass index 30+ - obesity 478874603 Z68.37 Discussed weight management .Healthy well balanced meals.Incr ease exercise, ideally 30 minutes most days of the week. [id number] Corina Brewer MD [facility] [address] , [place] [address] 03/23/2023 11:12:20 03/23/2023 11:56:33 Obstructive sleep apnea syndrome 69947474 G47.33 Impacted c erumen in right ear [id number] 810898 H61.21 Chronic low back pain 27 7774041 M54.50 Chronic neck pain 581980 2995 107 M54.2 see neurosurge on [id number] Aamir Feliz MD [facility] ENT [place] [address] [place] [address] 05/05/2023 12:24:11 05/05/2023 16:39:14 Vocal cord paralysis 153381889 J38.00 [id number] Bren [facility] [place] [address] [place] [address] 05/04/2023 14:30:43 05/04/2023 17:05:04 Asthma 274426357 J45.909 PFT with no obstructio nCheck methacholi ne challenge Dyspnea on exertion 6084 5006 R06.09 Multifacto ralIGE slightly high, eosinophil s slightly high, RAST with some positivesA ll others normal Obstructiv e sleep apnea syndrome 47476346 G47.33 Recent diagnosisH ome study 01/2023 with AHI 9 cm F2OKzqxjqd d today with 90% use greater than 4 hoursAPAP 5-15Median pressure 6.0AHI is 1.3He has good use and clinical benefitOSA is well correctedE ncouraged 100% compliance with all sleepFollo w with PCM for labsAdvise d good sleep habits and patterns:- Set a goal for at least 7 to 8 hours of sleep time per day.-Use the bed mainly for sleep and to go to bed only when tired. If unable to fall asleep after 30 minutes, patient should get out of bed but should not engage in any activity that requires sustained mental alertness. -Maintain a regular bedtime and wake-up time even on weekends-A void excessive naps during the daytime. If a nap is necessary, limit it to no more than 30 minutes.-M inimize environmen sekou noise, bright lights, and extremes in bedroom temperatur e.-Avoid alcohol, caffeinate d beverages, and nicotine products for at least 6 hours prior to bedtime.-A void strenuous exercise and large meals for at least 4 hours prior to bedtime. Ex-smoker 2395208 Z87.89 1 Not a candidate for LDCT History of exposure to second hand smoke 864447316 Z77.22 From parents Body mass index 30+ - obesity 925690129 Z68.37 Discussed weight management .Healthy well balanced meals.Incr ease exercise, ideally 30 minutes most days of the week. [id number] Bren Patel, [facility] Pulmonolo gy [place] [address] [place] [address] 06/08/2023 15:26:19 06/08/2023 16:02:51 Asthma 346586252 J45.909 PFT with no obstructio nMethachol ine challenge 05/31/23 positiveSt art ICS maintenanc eINstructe d on technique Dyspnea on exertion 6084 5006 R06.09 Multifacto ralIGE slightly high, eosinophil s slightly high, RAST with some positivesA ll others normal Obstructiv e sleep apnea syndrome 46055220 G47.33 Recent diagnosisH ome study 01/2023 with AHI 9 cm W5BRuzwxhm d today with 87% use greater than 4 hoursAPAP 5-15Median pressure 6.0AHI is 1.3He has good use and clinical benefitOSA is well correctedE ncouraged 100% compliance with all sleepFollo w with PCM for labsAdvise d good sleep habits and patterns:- Set a goal for at least 7 to 8 hours of sleep time per day.-Use the bed mainly for sleep and to go to bed only when tired. If unable to fall asleep after 30 minutes, patient should get out of bed but should not engage in any activity that requires sustained mental alertness. -Maintain a regular bedtime and wake-up time even on weekends-A void excessive naps during the daytime. If a nap is necessary, limit it to no more than 30 minutes.-M inimize environmen sekou noise, bright lights, and extremes in bedroom temperatur e.-Avoid alcohol, caffeinate d beverages, and nicotine products for at least 6 hours prior to bedtime.-A void strenuous exercise and large meals for at least 4 hours prior to bedtime. Ex-smoker 8005988 Z87.89 1 Not a candidate for LDCT Body mass index 30+ - obesity 611317175 Z68.37 Discussed weight management .Healthy well balanced meals.Incr ease exercise, ideally 30 minutes most days of the week. [id number] Corina Brewer MD [facility] [address] [facility] [place] [address] 06/14/2023 11:32:10 06/14/2023 12:18:18 Pre-surgery evaluation 450513710 Z01.818 Cleared for surgery [id number] Bren Patel, S[employer]IOR [employer]S SCI[employer]IST-[facility] Pulmonolo gy [place] [address] [place] [address] 08/05/2023 14:00:58 08/05/2023 14:35:14 Asthma 899712637 J45.909 PFT with no obstructio nMethachol ine challenge 05/31/23 positiveSt art ICS maintenanc eINstructe d on technique Dyspnea on exertion 6084 5006 R06.09 Multifacto ralIGE slightly high, eosinophil s slightly high, RAST with some positives Obstructiv e sleep apnea syndrome 13580197 G47.33 Recent diagnosisH ome study 01/2023 with AHI 9 cm Y3JLukcpng d today with 100% useAPAP 5-15Median pressure 6.0AHI is 2.0He has good use and clinical benefitOSA is well correctedE ncouraged 100% compliance with all sleepFollo w with PCM for labsAdvise d good sleep habits and patterns:- Set a goal for at least 7 to 8 hours of sleep time per day.-Use the bed mainly for sleep and to go to bed only when tired. If unable to fall asleep after 30 minutes, patient should get out of bed but should not engage in any activity that requires sustained mental alertness. -Maintain a regular bedtime and wake-up time even on weekends-A void excessive naps during the daytime. If a nap is necessary, limit it to no more than 30 minutes.-M inimize environmen sekou noise, bright lights, and extremes in bedroom temperatur e.-Avoid alcohol, caffeinate d beverages, and nicotine products for at least 6 hours prior to bedtime.-A void strenuous exercise and large meals for at least 4 hours prior to bedtime. Ex-smoker 6868355 Z87.89 1 Not a candidate for LDCT Body mass index 30+ - obesity 857813560 Z68.37 Discussed weight management .Healthy well balanced meals.Incr ease exercise, ideally 30 minutes most days of the week. [id number] JOVANI See [facility] [address] [facility] [place] [place] [address] 12/21/2023 10:29:41 12/21/2023 11:14:37 Acid reflux 077311070 K21.9 Anxiety 52194953 F41.9 Asthma 924987754 J45.90 9 Chronic ob structive pulmonary disease 36212708 J44.9 Hyperlipidemia 44474440 E78.5 Low back pain 987286080 M54.50 Obstructiv e sleep apnea syndrome 21141538 G47.33 [id number] Andres Damian MD [address] [address] 02/06/2024 11:17:09 02/07/2024 08:45:57 Mild intermittent asthma 785311596 J45.20 Obstructiv e sleep apnea syndrome 18314106 G47.33 [id number] JOVANI See [address] [place] [address] 04/04/2024 10:18:19 04/04/2024 11:14:25 Adult health examination 015523513 Z00.00 Screening for disorder 414176223 Z13.9 Asthma 276509562 J45.90 9 Chronic back pain 275696 002 G89.29 Essential hypertension 26825615 I10 Gastroesop hageal reflux disease 399831410 K21.9 Hyperlipidemia 03859767 E78.5 Migraine 80636843 G43.90 9 Obstructiv e sleep apnea syndrome 52610107 G47.33 Vocal cord paralysis 302 336393 J38.00 Screening for malignant neoplasm of prostate 893769684 Z12.5 Irritable bowel syndrome with diarrhea 365784734 K58.0 [id number] Andres Damian MD [address] [address] 05/15/2024 10:40:51 05/16/2024 09:07:28 Mild intermittent asthma 450242363 J45.20 Obstructiv e sleep apnea syndrome 99371828 G47.33 [id number] JOVANI See [facility] [address] [place] [address] [place] [address] 07/05/2024 11:32:22 07/05/2024 12:06:35 Fatigue 16442705 R53.83 Gastroesop hageal reflux disease 293124042 K21.9 Essential hypertension 25805478 I10 Generalize d anxiety disorder 16986802 F41.1 Hyperlipidemia 75725164 E78.5 Irritable bowel syndrome with diarrhea 520839119 K58.0 Obstructiv e sleep apnea syndrome 08644511 G47.33 [id number] JOVANI See [facility] [address] [address] 10/10/2024 11:04:54 10/10/2024 12:21:16 Persistent insomnia 541726864 G47.09 Irritable bowel syndrome with diarrhea 782012896 K58.0 Candidiasis of skin 4988 3006 B37.2 under arms Gastroesop hageal reflux disease 748825865 K21.9 Essential hypertension 87403620 I10 Hyperlipidemia 95784819 E78.5 Health Concerns Section Related Observation LastModified by Organization Detai ls LastModified Time None Recorded Concern Status LastModified by Organization Details LastModified Time None Recorded Advance Directives Directive N: Payers Encounter Date Sequence Insurance Name Policy Number Policy Rojas Covered Member ID Rojas Member ID Guarantor Name 02/06/2024 1 [place] ([place]PLAC[place]/A DVANTAGE - HMO) [id number] Lauri Almeida [id number] Lauri Almeida 04/04/2024 1 [place]/A DVANTAGE - HMO) [id number] Lauri Almeida [id number] Lauri Almeida 05/15/2024 1 [place] ([place]PLACEMENT/A DVANTAGE - HMO) [id number] Lauri Almeida [id number] Lauri Almeida 07/05/2024 1 [place] (MEDICARE REPLACEMENT/A DVANTAGE - HMO) [id number] Lauri Almeida [id number] Lauri Almeida 10/10/2024 1 [place] (MEDICARE REPLACEMENT/A DVANTAGE - HMO) [id number] Lauri Almeida [id number] Lauri Almeida Notes Date Note Type Note Provider Name and Address Organization Details Recorded Time 02/06/2024 text/html Primary care/Ref erring provider: Cherise Barger PA-C CC: I did not fill my Symbicort prescription because it is too expensive. Patient is here to go over his asthma management. Initial development of shortness of breath: 2022 Duration of shortness of breath: 1 year Condition of shortness of breath: stable Timing of shortness of breath: none Frequency: once a month Limits activities: yes Aggravating factors: lawn mowing, summer Alleviating factors: rest Modified [employer] [place] (mMRC) Dyspnea Scale - Grade 1 Grade 0 I only get breathless with strenuous exercise . Grade 1 I get short of breath when hurrying on the level or walking up a slight hill . Grade 2 I walk slower than people of the same age on the level because of breathlessness or have to stop for breath when walking at my own pace on the level . Grade 3 I stop for breath after walking about 100 yards or after a few minutes on the level . Grade 4 I am too breathless to leave the house or I am breathless when dressing . Treatment history: Albuterol HFA as needed since 2014, once a month use only Other symptoms: Drooling: no Dysarthria: no Neck pain: no Odynophagia: no Dysphagia: no Weak mastication: no Facial weakness: no Nasal speech: no Protruding tongue: no Productive cough: clear Wheezing: no Chest tightness: yes Orthopnea: 2-pillow habit Frequent throat clearing or swallowing: no Palpitations: no Heartburn: no Edema: no Environmental exposures: Nicotine smoke: 1.5 ppd 4247-6786 = 15 pack years [place]: no Dye: no Dust mites: yes Mold: no Damp basement: no Wood burning stove: no Animal dander: dogs Cockroaches: no Pollen: yes Arsenic: no Asbestos: Beryllium: no Cadmium: no Chromium: no [place] smoke: no Diesel fumes: no Nickel: no Silica: no Soot: no During the [facility] home sleep study on 01/11/23, AHI = 9. At home since 08/05/23, the patient uses a ResMed AirSense 11 autoset unit with heated humidification. The patient does not need the ramp to start low and go up slowly on the pressure anymore. There is some xerostomia in a.m. There is no hose/mask condensation with water. The patient wears a nasal mask without chin strap. There is no claustrophobia, no nostril/nose bridge irritation, no facial rash, no facial numbness, no nosebleeding. The patient feels more refreshed upon waking and daytime alertness is improved. Energy levels are sustained until noon. At home, the patient sleeps from 12 am to 8 am and wakes up without an alarm. Snoring: heavy, since . Snorting: no Choking: no Coughing: no Gasping: no Gagging: no Sighing: no Witnessed apnea: yes Twitching or jerking of leg(s), arm(s), body, head: no Teeth grinding: yes Teeth clenching: yes Sleeptalking: no Sleepwalking: no Sleep crying: no Bedwetting: no Tongue/lip/gum/cheek biting: no Sleeping with open mouth: yes Sleep paralysis: no Hypnagogic hallucinations: no Hypnopompic hallucinations: no Vivid dreams: yes Difficulty with sleep onset: yes Difficulty with sleep maintenance: yes Sleep interruptions: bodily aches Patient wakes up with: fatigue, xerostomia, mobility impairment, dexterity impairment Daytime cataplexy: no Morning hypersomnolence: yes Afternoon hypersomnolence: yes Caffeine sources in diet: coffee 1 cup per day, tea 1 cup per day, soda 1/2 bottle per week, chocolate 1 candy bar per month Associated medical and psychiatric conditions: Congestive heart failure: no Coronary artery disease: no Myocardial infarction: no Hypertension: yes Stroke: no Bronchial asthma: no Chronic obstructive pulmonary disease: no Depression: no Bipolar disorder: no Anxiety: yes Panic disorder: yes Posttraumatic stress disorder: no Attention deficit and hyperactivity disorder: no Obsessive Compulsive disorder: no Schizophrenia: no Schizoaffective disorder: no Personality disorder: no Chronic analgesic use: no Chronic sedative/hypnotic use: no EPWORTH SLEEPINESS SCALE (ESS) CHANCE OF DOZING SCORE 0 = would never doze 1 = slight chance of dozing 2 = moderate chance of dozing 3 = high chance of dozing SITUATION AND CHANCE OF DOZING Sitting and reading - 2 Watching television - 2 Sitting inactive in a public place (e.g. a theater or meeting) - 0 As a passenger in a car for an hour without a break - 0 Lying down to rest in the afternoon when circumstances permit - 3 Sitting and talking to someone - 0 Sitting quietly after lunch without alcohol - 0 In a car, while stopped for a few minutes in the traffic - 0 TOTAL SCORE 7 Subjectively, patient has a slight chance of dozing. Andres Damian MD [address] [place] [address], [address], [employer] 02/06/2024 13:13:27 04/04/2024 text/html ever since he cabral d gallbladder removed , if he eats , he has to have a BM right away. JOVANI See [address], [address], [place], [address], [employer] 04/20/2024 13:29:50 05/15/2024 text/html Primary care/Ref erring provider: Cherise Barger PA-C Patient is here to go over his asthma management. Initial development of shortness of breath: uration of shortness of breath: 1 yearCondition of shortness of breath: stableTiming of shortness of breath: noneFrequency: once a monthLimits activities: yesAggravating factors: lawn mowing, summerAlleviating factors: rest Modified [employer] [place] (mMRC) Dyspnea Scale - Grade 1Grade 0 I only get breathless with strenuous exercise .Grade 1 I get short of breath when hurrying on the level or walking up a slight hill .Grade 2 I walk slower than people of the same age on the level because of breathlessness or have to stop for breath when walking at my own pace on the level .Grade 3 I stop for breath after walking about 100 yards or after a few minutes on the level .Grade 4 I am too breathless to leave the house or I am breathless when dressing . Patient's personal best peak flow has increased from 640 to 800 L/min. Treatment history: Albuterol HFA as needed since 2014, once a month use only Other symptoms:Drooling: noDysarthria: noNeck pain: noOdynophagia: noDysphagia: noWeak mastication: noFacial weakness: noNasal speech: noProtruding tongue: noProductive cough: clearWheezing: noChest tightness: yesOrthopnea: 2-pillow habitFrequent throat clearing or swallowing: noPalpitations: noHeartburn: noEdema: no Environmental exposures:Nicotine smoke: 1.5 ppd 1898-8198 = 15 pack yearsPaint: noDye: noDust mites: yesMold: noDamp basement: noWood burning stove: noAnimal dander: dogsCockroaches: noPollen: yesArsenic: noAsbestos: 1977-1978Beryllium: noCadmium: noChromium: noCoal smoke: noDiesel fumes: noNickel: noSilica: noSoot: no During the [facility] home sleep study on 01/11/23, AHI = 9. At home since 02/06/24, the patient uses a ResMed AirSense 11 autoset unit with heated humidification. The patient does not need the ramp to start low and go up slowly on the pressure anymore. There is some xerostomia in a.m. There is no hose/mask condensation with water.The patient wears a ResMed large AirFit N20 nasal mask without chin strap. There is no claustrophobia, no nostril/nose bridge irritation, no facial rash, no facial numbness, no nosebleeding. The patient feels more refreshed upon waking and daytime alertness is improved. Energy levels are sustained until noon. At home, the patient sleeps from 12 am to 8 am and wakes up without an alarm. Snoring: heavy, since .Snorting: noChoking: noCoughing: noGasping: noGagging: noSighing: noWitnessed apnea: yesTwitching or jerking of leg(s), arm(s), body, head: noTeeth grinding: yesTeeth clenching: yesSleeptalking: noSleepwalking: noSleep crying: noBedwetting: noTongue/lip/gum/cheek biting: noSleeping with open mouth: yesSleep paralysis: noHypnagogic hallucinations: noHypnopompic hallucinations: noVivid dreams: yesDifficulty with sleep onset: yesDifficulty with sleep maintenance: yesSleep interruptions: bodily achesPatient wakes up with: fatigue, xerostomia, mobility impairment, dexterity impairmentDaytime cataplexy: noMorning hypersomnolence: yesAfternoon hypersomnolence: yesCaffeine sources in diet: coffee 1 cup per day, tea 1 cup per day, soda 1/2 bottle per week, chocolate 1 candy bar per month Associated medical and psychiatric conditions:Congestive heart failure: noCoronary artery disease: noMyocardial infarction: noHypertension: yesStroke: noBronchial asthma: noChronic obstructive pulmonary disease: noDepression: noBipolar disorder: noAnxiety: yesPanic disorder: yesPosttraumatic stress disorder: noAttention deficit and hyperactivity disorder: noObsessive Compulsive disorder: noSchizophrenia: noSchizoaffective disorder: noPersonality disorder: noChronic analgesic use: noChronic sedative/hypnotic use: no EPWORTH SLEEPINESS SCALE (ESS) CHANCE OF DOZING SCORE0 = would never doze1 = slight chance of dozing2 = moderate chance of dozing3 = high chance of dozing SITUATION AND CHANCE OF DOZINGSitting and reading - 2Watching television - 2Sitting inactive in a public place (e.g. a theater or meeting) - 0As a passenger in a car for an hour without a break - 0Lying down to rest in the afternoon when circumstances permit - 2Sitting and talking to someone - 0Sitting quietly after lunch without alcohol - 2In a car, while stopped for a few minutes in the traffic - 0TOTAL SCORE 8Subjectively, patient has a slight chance of dozing. Andres Damian MD [address] [place], [address], [facility] 05/15/2024 11:56:43 07/05/2024 text/html 9 am he gets up , back in bed a 1 pm . needs something to boost energy. back really hurts today , getting a nerve block in a week in [facility] JOVANI See [address], [place], [address], [facility] 07/09/2024 16:15:25 10/10/2024 text/html constant loose s tools for 4 years , since cholecystectomy . red rash under arms bilaterally JOVANI See [address] [place], [address], [employer] 10/22/2024 13:47:14
--- OUTSIDE RECORDS SUMMARY | 2024-12-14 11:32 | XMS_ITS | Referral Summary ---
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 Gender Identity Not on file Sexual Orientation [...] 07/08/2023 11:06 AM CDT Plan of Treatment Not on file Medical Devices Implanted Type Area Worm Grower Device Identifier Shelf Expiration Date Model / Serial / Lot [employer]entus Osteoamp Select Fiber 1cc Oasf-01 - [id number] - [id number] Implanted:Qty: 1 on 07/01/2023 by Andrea Shelby MD at [facility] N/A: Spine Cervical [employer] 02/14/2028 OASF-01 / [id number] / [employer] Cage Ti3z Cif [id number] -6 Deg 222-0607 - [id number] Implanted:Qty: 1 on 07/01/2023 by Andrea Shelby MD at [facility] N/A: Spine Cervical [employer] 01/21/2028 222-0607 / / [id number] [employer] Cage Ti3z Cif [id number] -6 Deg 222-0607 - [id number] Implanted:Qty: 1 on 07/01/2023 by Andrea Shelby MD at [facility] N/A: Spine Cervical [employer] 01/21/2028 222-0607 / / [id number] [employer] Plate 2-Level 26 Mm Cervical 300-0226 - [id number] Implanted:Qty: 1 on 07/01/2023 by Andrea Shelby MD at [facility] N/A: Spine Cervical [employer] 300-0226 / / [employer] Screw Self Drilling Variable 4.0x16mm 301-4016 - [id number] Implanted:Qty: 4 on 07/01/2023 by Andrea Shelby MD at [facility] N/A: Spine Cervical [employer] 301-4016 / / [employer] Screw Self-Drilling 4x18mm 301-4018 - [id number] Implanted:Qty: 2 on 07/01/2023 by Andrea Shelby MD at [facility] N/A: Spine Cervical [employer] 301-4018 / / Insurance MEDICARE SOLUTIONS MEDICARE SOLUTIONS MEDICARE SOLUTIONS MEDICARE SOLUTIONS Care Teams Team Cdl Driver Relationship Specialty Start Date End Date Corina Brewer MD [facility] [place] [address] PCP - General Family Medicine 06/20/23
== END 2024-12-14 10:47 | disposition home or self-care (01) ==
LOC: ANHIMG 10:50
PROVIDERS: PCP Physician Assistant; Visit Provider Neurological Surgery
DX: M47.816 Spondylosis without myelopathy or radiculopathy, lumbar region (principal); Z98.1 Arthrodesis status
CPT/HCPCS: 72040; 72100

== ENCOUNTER 2024-12-30 13:30 | Emergency (ER) | payer MEDICARE, SELFPAY ==
--- NOTE | ~2024-12-30 | CT_ITS ---
History: Fall with back pain PROCEDURE: CT lumbar spine without intravenous contrast. COMPARISON: Reference is made to plain film evaluation dated 12/14/2024 TECHNIQUE: Multiple contiguous axial images of the lumbar spine were performed without the administration of int ravenous contrast. DLP: 1525 mGy-cm FINDINGS: Fixation hardware at the level of L5 and S1 with postlaminectomy change No acute compression fractures are present. No soft tissue abnormality is noted. Degenerative disease is identified, with osteophyte formation and disc space narrowing. Moderate facet hypertrophy is also noted. Significant degenerative disease is also detected within the bilateral sacroiliac joint spaces, with thickening, sclerosis and vacuum phenomena. Impression: Degenerative disease without acute fracture Reviewed, dictated and finalized at location A. HOUSE LEAD Impression: Degenerative disease without acute fracture
--- NOTE | ~2024-12-30 | CT_ITS ---
History: Fall PROCEDURE: CT head without contrast. COMPARISON: 12/04/2022 TECHNIQUE: Axial imaging of the head performed from the skull base to the vertex without IV contrast. Sagittal a nd coronal reformations obtained. DLP: 605 mGy-cm FINDINGS: The ventricles are normal in size, shape and position. There is no mass, mass effect or midline shift. There is no abnormal extra-axial fluid collection or intracranial hemorrhage. Retention cyst within the left sphenoid sinus and bilateral maxillary sinuses. Remaining paranasal sinuses are otherwise unremarkable. The mastoid air cells are well aerated. No acute displaced fractures within the overlying cranium. Impression: No acute intracranial hemorrhage or suspicious mass effect. Inflammatory sinus disease Reviewed, dictated and finalized at location A. LAYER Impression: No acute intracranial hemorrhage or suspicious mass effect. Inflammatory sinus disease
--- NOTE | ~2024-12-30 | CT_ITS ---
History: Neck pain after multiple falls PROCEDURE: CT cervical spine without intravenous contrast. COMPARISON: Reference is made to plain film evaluations of the cervical spine performed most recently on 12/14/2024 and dating back to 04/22/2023 TECHNIQUE: Multiple contiguous axial images of the cervical spine were performed without the administration of i ntravenous contrast. DLP: 707 mGy-cm FINDINGS: Anterior fixation of the cervical spine is present at the levels of C3, C4, C5, C6, and C7. No acute fracture is identified within the C1 or C2 levels. No periprosthetic fracture is appreciated. The bilateral lung apices are unremarkable. No soft tissue abnormality is present. The airway is patent. Impression: No acute fracture. Reviewed, dictated and finalized at location A. K CONTROL SUPERVISOR Impression: No acute fracture.
--- OUTSIDE RECORDS SUMMARY | 2024-12-30 13:32 | XMS_ITS | Patient Health Summary ---
Author Organization [facility] Address [address] [place] [address] Care Team Providers Care Industrial Machine Operator Name Role Phone Sahra Zaidi MD Primary Care Provider [phone] Note from [facility],non-owned Affiliates and Associated Physician Practices is amultiple site organization consisting of ambulatory clinics and hospital sitesin [place], [place], [place] and [place]. This disclosure is being madepursuant to the Care Everywhere program and may not contain all information available regarding this patient. Last updated 18.[facility] Allergies No known active allergies Medications * [...] Rupesh Macedo MD MR ORDERABLES Care Teams Industrial Machine Operator Relationship Specialty Start Date End Date Sahra Zaidi MD [address] [place] [phone] PCP - General 03/11/20
--- OUTSIDE RECORDS SUMMARY | 2024-12-30 13:32 | XMS_ITS ---
Author Organization [facility] Address [address] [address] Care Team Providers Care Salesforce Consultant Name Role Phone Harry Merritt Unavailable [phone] Encounters Encounter Location Date Provider Diagnosis [place] [address] [place] [address] 09/24/2024 Harry Merritt PLAN OF TREATMENT No Information Progress Notes * Lauri ALMEIDADOB:1955 (69 yo M)Acc No.[id number]:09/24/2024 Patient: Lauri ALMEIDA :1955 Age:69 Y Sex:Male Address:[address] [place], [place], [address] * true * Date:
--- OUTSIDE RECORDS SUMMARY | 2024-12-30 13:32 | XMS_ITS | Referral Summary ---
Author Organization [facility] Address [address] [place] [address] Care Team Providers Care Torpedo Shooter Name Role Phone Sahra Zaidi MD Primary Care Provider [phone] Source Comments [facility],non-[facility] Affiliates and Associated Physician Practices is amultiple site organization consisting of ambulatory clinics and hospital sitesin [place], [place], [place] and [place]. This disclosure is being madepursuant to the Care Everywhere program and may not contain all information available regarding this patient. Last updated 18.[facility] [employer] Allergies No known active allergies Medications * [...] of Treatment Not on file Care Teams Torpedo Shooter Relationship Specialty Start Date End Date Sahra Zaidi MD [address] [place] [address] [place] [address] PCP - General 03/11/20
--- OUTSIDE RECORDS SUMMARY | 2024-12-30 13:32 | XMS_ITS ---
Author Organization [facility] Address [address] [address] Care Team Providers Care Director Client Services Name Role Phone Harry Merritt Unavailable [phone] REASON FOR VISIT follow up / [facility] Encounters Encounter Location Date Provider Diagnosis [facility] [address] [place] [address] 10/02/2024 Harry Merritt PLAN OF TREATMENT No Information Progress Notes * Lauri ALMEIDADOB:1955 (69 yo M)Acc No.[id number]:10/02/2024 Progress Notes Patient: Lauri ALMEIDA Provider: Harry Merritt MD :1955 Age:69 Y Sex:Male Date:10/02/2024 Address:[facility] [id number] Subjective: * Chief Complaints: * 1. follow up / [facility]. * Medical History: Objective: Assessment: Plan: * Treatment: * Images: * Sign off status: Pending * Provider: Harry Merritt MD Date: 10/02/2024
--- OUTSIDE RECORDS SUMMARY | 2024-12-30 13:32 | XMS_ITS | Clinical Summary ---
Author Organization [facility] Address [address] [place] [address] Care Team Providers Care Shake Splitter Name Role Phone Sahra Zaidi MD Primary Care Provider [phone] Source Comments [facility],non-owned Affiliates and Associated Physician Practices is amultiple site organization consisting of ambulatory clinics and hospital sitesin [place], [place], [place] and [place]. This disclosure is being madepursuant to the Care Everywhere program and may not contain all information available regarding this patient. Last updated 18.[facility] [employer] Allergies No known active allergies Medications * [...] age to complete this topic Care Teams Shake Splitter Relationship Specialty Start Date End Date Sahra Zaidi MD [address] [place] [address] [address] [place] [phone] PCP - General 03/11/20
--- OUTSIDE RECORDS SUMMARY | 2024-12-30 13:32 | XMS_ITS | Patient Health Record ---
Author Organization [facility] Address [address] [address] Care Team Providers Care Director Of Customer Service Name Role Phone Harry Merritt Unavailable [phone] ALLERGIES Allergen (clinical drug ingredient) Drug/Non Drug Allergy documented on EMR Reaction Allergy Type Onset Date Status Latex Latex rash Allergy Active Penicillin rash Drug Allergy Active Tape rash Allergy Active REASON FOR REFERRAL No Information MEDICATIONS Medication SIG (Take, Route, Frequency, Duration) Notes Start Date End Date Status Paola 7.5-325 MG 1 tablet as needed Orally [...] Problem Other chronic pain (G89.29) Active confirmed 24799102 Problem Spondylosis without myelopathy or radiculopathy, cervical region (M47.812) Active confirmed 662415511 Problem Cervical disc disorder with radiculopathy, cervicothoracic 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) Active confirmed Cervical dis c disorder with radiculopathy (209848288) Problem Low back pain (M54.5) Active confirmed 059750721 Problem Other myositis, 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) Active confirmed Myositis (07087888) Problem Postlaminectomy syndrome, not elsewhere classified (M96.1) Active confirmed 69994690 Problem 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) Active confirmed 62596129 Problem Radiculopathy of lumbosacral region (M54.17) Active confirmed 8258009 Problem senior care current use of opiate analgesic (Z79.891) Active confirmed 704194687427428 Problem Obesity, unspecified classification, unspecified obesity type, unspecified whether serious comorbidity present (E66.9) Active confirmed 457465662 Problem Sacroiliitis (M46.1) Active confirmed Sacroiliitis (72521058) Problem Myofascial pain (M79.18) Active confirmed Myofascial pain (361161774) VITAL SIGNS Heart Rate 89 /min 09/17/2024 Temperature 97.9 degrees Fahrenheit 09/17/2024 Respiratory Rate 18 /min 09/17/2024 Blood pressure diastolic 79 mm Hg 09/17/2024 Height 73 in 09/17/2024 Blood pressure systolic 115 mm Hg 09/17/2024 Weight 272 lbs 09/17/2024 BMI 35.88 kg/m2 09/17/2024 Encounters Encounter Location Date Provider Diagnosis [facility] [address] [place] [address] 10/02/2024 Harry Cajigal [facility] [address] [place] [address] 01/02/2024 Harry Cajigal Sacroiliitis M46.1 ; Spondylosis of lumbosacral region without myelopathy or radiculopathy M47.817 ; Low back pain M54.5 ; Other chronic pain G89.29 ; Postlaminectomy syndrome, not elsewhere classified M96.1 ; intermediate manager current use of opiate analgesic Z79.891 ; Obesity, unspecified classification, unspecified obesity type, unspecified whether serious comorbidity present E66.9 ; Spondylosis without myelopathy or radiculopathy, cervical region M47.812 ; Radiculopathy of lumbosacral region M54.17 ; Other myositis, multiple sites M60.89 ; Myofascial pain M79.18 and Cervical disc disorder with radiculopathy, cervicothoracic region M50.13 [facility] [address] [facility] [address] 01/30/2024 Harry Cajigal Sacroiliitis M46.1 ; Spondylosis of lumbosacral region without myelopathy or radiculopathy M47.817 ; Low back pain M54.5 ; Other chronic pain G89.29 ; Postlaminectomy syndrome, not elsewhere classified M96.1 ; senior care current use of opiate analgesic Z79.891 ; Obesity, unspecified classification, unspecified obesity type, unspecified whether serious comorbidity present E66.9 ; Spondylosis without myelopathy or radiculopathy, cervical region M47.812 ; Radiculopathy of lumbosacral region M54.17 ; Other myositis, multiple sites M60.89 ; Myofascial pain M79.18 and Cervical disc disorder with radiculopathy, cervicothoracic region M50.13 [facility] [address] [facility] [place] [address] 07/10/2024 Harry Cajigal Sacroiliitis M46.1 ; Spondylosis of lumbosacral region without myelopathy or radiculopathy M47.817 ; Low back pain M54.5 ; Other chronic pain G89.29 ; Postlaminectomy syndrome, not elsewhere classified M96.1 ; senior care current use of opiate analgesic Z79.891 ; Obesity, unspecified classification, unspecified obesity type, unspecified whether serious comorbidity present E66.9 ; Spondylosis without myelopathy or radiculopathy, cervical region M47.812 ; Radiculopathy of lumbosacral region M54.17 ; Other myositis, multiple sites M60.89 ; Myofascial pain M79.18 and Cervical disc disorder with radiculopathy, cervicothoracic region M50.13 [facility] [address] [place] [address] 09/17/2024 [facility] Sacroiliitis M46.1 ; Spondylosis of lumbosacral region without myelopathy or radiculopathy M47.817 ; Low back pain M54.5 ; Other chronic pain G89.29 ; Postlaminectomy syndrome, not elsewhere classified M96.1 ; intermediate manager current use of opiate analgesic Z79.891 ; Obesity, unspecified classification, unspecified obesity type, unspecified whether serious comorbidity present E66.9 ; Spondylosis without myelopathy or radiculopathy, cervical region M47.812 ; Radiculopathy of lumbosacral region M54.17 ; Other myositis, multiple sites M60.89 ; Myofascial pain M79.18 and Cervical disc disorder with radiculopathy, cervicothoracic region M50.13 [facility] [address] [place] [address] 01/30/2024 [facility] [address] [place] [address] 09/03/2024 Harry C[facility]ist. [facility] [facility] [address] [place] [address] 09/24/2024 [facility] ASSESSMENTS Encounter Date Diagnosis Assessment Notes Treatment Notes Treatment Clinical Notes Section Notes 01/02/2024 Sacroiliitis (ICD-10 - M46.1) Chronic, exacerbated. 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 Risks of interventional procedure includes bleeding, [...] greater than 8 hours and has a lunch truck driver for sedation. Recommend to ice back 20 minutes on 20 minutes off for the next 3 to 4 days. Recommend to take [id number] NSAIDs as needed for postop pain. Risks of interventional procedure includes bleeding, pain, infection, failure of treatment, injury to nerve or other body parts. 01/02/2024 Low back pain (ICD-10 - M54.5) 01/30/2024 Low back pain (ICD-10 - M54.5) 07/10/2024 Low back pain (ICD-10 - M54.5) 09/17/2024 Low back pain (ICD-10 - M54.5) 09/17/2024 Other chronic pain (ICD-10 - G89.29) 07/10/2024 Other chronic pain (ICD-10 - G89.29) 01/30/2024 Other chronic pain (ICD-10 - G89.29) 01/02/2024 Other chronic pain (ICD-10 - G89.29) 01/02/2024 Postlaminectomy syndrome, not elsewhere classified (ICD-10 - M96.1) 01/30/2024 Postlaminectomy syndrome, not elsewhere classified (ICD-10 - M96.1) 07/10/2024 Postlaminectomy syndrome, not elsewhere classified (ICD-10 - M96.1) 09/17/2024 Postlaminectomy syndrome, not elsewhere classified (ICD-10 - M96.1) 09/17/2024 senior care current use of opiate analgesic (ICD-10 - Z79.891) 07/10/2024 intermediate manager current use of opiate analgesic (ICD-10 - Z79.891) 01/30/2024 intermediate manager current use of opiate analgesic (ICD-10 - Z79.891) 01/02/2024 senior care current use of opiate analgesic (ICD-10 - Z79.891) 01/02/2024 Obesity, unspecified classification, unspecified obesity type, [...] to nerve or other body parts. 01/02/2024 Myofascial pain (ICD-10 - M79.18) 01/30/2024 [...] to follow-up with neurosurgery after procedure. 01/02/2024 Other MDM: 2 or more chronic [...] Coverage End Date Medicare Complete [address] [address] [place] [address] [id number] Juan PabloLauri Self - patient is the insured MEDICAL [...] and 8ft fence fell on him 12/2022 [facility] 02/2020
--- OUTSIDE RECORDS SUMMARY | 2024-12-30 13:32 | XMS_ITS | Continuity of Care Document ---
Author Organization [facility] Address [address] [place] [address] Phone Care Team Providers Care Furniture Shampooer Name Role Phone Sal Sánchez PT Unavailable Procedures Procedure Date Progress Note Therapeutic Activities Neuromuscular Re-Ed Therapeutic Exercise Therapeutic Activities Neuromuscular Re-Ed Therapeutic Exercise Therapeutic Activities Neuromuscular Re-Ed Therapeutic Exercise Therapeutic Activities Neuromuscular Re-Ed Therapeutic Exercise Therapeutic Activities Neuromuscular Re-Ed Therapeutic Exercise Therapeutic Activities Neuromuscular Re-Ed Therapeutic Exercise Doc neg elder mal no plan PT Evaluation Moderate Complexity Therapeutic Activities Neuromuscular Re-Ed Advance Directives Directive Yes / No Effective Date File Name No Information Encounters Encounter Description Practice Location Reason(s) For Visit Diagnoses Date Provider Providers Copied on Encounter [facility], [address], [place], [place], [id number], tel:[phone] [place] No Information Gonzalo Huang. . Referring Provider: Andrea Shelby, [address] [place] [address], [place], [address]. tel:[phone] [place] [address], [address] [address], [place], [place], [id number], [place] tel:[phone] [place] No Information Gonzalo Sal. . Referring Provider: Andrea Shelby, [address] [place] [address], [address]. tel:[phone] [place] [address] [address] [address], [place], [place], [id number], [place] tel:[phone] [place] No Information Gonzalo Sal. . Referring Provider: Andrea Shelby, [address] [place] [address], [address]. tel:[phone] [place] [address], [address] [address], [place], [place], [id number], tel:[phone] [place] No Information Gonzalo Sal. . Referring Provider: Andrea Shelby, [address] [place] [address], [address]. tel:[phone] [place] [address], [id number], [place] tel:[phone] [place] No Information Gonzalo Sal. . Referring Provider: Andrea Shelby, [address] [place] [address], [address]. tel:[phone] [place] [address], [id number], [place] tel:[phone] [place] No Information Clarisse Levy . Referring Provider: Andrea Shelby [address] [place] [address], [address]. tel:[phone] [place] [address] [address] [address], [place], [id number], tel:[phone] [place] No Information Gonzalo Sal. . Referring Provider: Andrea Shelby [address] [place] [address] [place], [address]. tel:[phone] Family History Family Member Type Diagnosis Age At Onset No Information Payers Payer name Insurance type Covered alliance party ID Yobani ching(s) [employer] Community Plan Dual Complete CI [id number] Social History Type Description Quantity Date Captured Comments Sex Male Smoking Status No Information Chief Complaint And Reason For Visit No Information Reason For Referral Reason For Referral No Information History Of Present Illness Encounter Date Complaint History Of Prese nt Illness No Information Functional Status Date Functional Assessmen t No Information Instructions Date Instruction Additional Infor mation No Information Assessments Type Assessment Date No Information Patient Care Teams Name Effective Dates (start - stop) Status Members No Information
--- OUTSIDE RECORDS SUMMARY | 2024-12-30 13:32 | XMS_ITS | Data Portability ---
Author Organization [facility], Main Office Address [address] [place] [address] Care Team Providers Care Metallurgical Analyst Name Role Phone VERNON BARGER Primary Care Provider [phone] VERNON BARGER Referring Provider [phone] BREN PATEL Renewals Representative Unavailable ALDO CHOPRA Pain Management JALEN REYES Neurosurgeon Assessment Encounter Date Assessment Date Assessment LastModified by Organization Details LastModified Time 02/06/2024 02/06/2024 Assessment: Nicotine smoke: 1.5 ppd 3233-8238 = 15 pack years Mild OSAHS, AHI = 9 Mild intermittent asthma Plan: The following were reviewed and explained to the patient: primary care/referral note [facility] home sleep study 01/11/23 AHI = 9 [...] of the time. PAP is set at 5-00jqS8P. PAP will remain at 5-15 cmH2O per [...] 05/15/2024 05/15/2024 Assessment: Nicotine smoke: 1.5 ppd 4289-5719 = 15 pack years Mild OSAHS, AHI = 9 Mild intermittent asthma Plan: The following were reviewed and explained to the patient: [facility] home sleep study 01/11/23 AHI = 9 [...] Last Modified Time Details Appointments Follow Up 15 2024 10:15A M JOVANI See Not available Not available Not available Follow Up 2024 10:00A M Andres Damian MD Not available Not available Not available Lab vitamin B12 + folate, serum or blood 2023 024 [facility] - Outpatient Lab, [address] [place], [address], 07/05/2024 20:17:13 PSA, total + free, serum or plasma [address] Outpatient Lab, [address] [place], [address], 04/11/2024 08:36:15 lipid panel, serum [address] Outpatient Lab, [address] [place], [address], 04/11/2024 08:36:15 CMP, serum or plasma [address] Outpatient Lab, [address] [place], [address], 04/11/2024 08:36:15 CK (creatine kinase), total, serum [address] Outpatient Lab, [address] [place], [address], 04/11/2024 08:36:15 CBC w/ auto diff [address] Outpatient Lab, [address] [place], [address], 04/11/2024 08:36:16 TSH, serum or plasma [address] Outpatient Lab, [address] [place], [address], 04/11/2024 08:36:16 Referral None recorded. Procedures None recorded. Surgeries None recorded. Imaging None recorded. Medication Orders dicyclomi ne 10 mg capsule 2023 [email or web address], [address], [place], [id number], 10/10/2024 14:42:26 nystatin 100,000 unit/gram topical cream 2023 024 [facility], [address], [place], [place], [id number], 10/10/2024 14:29:58 zolpidem 10 mg tablet 2023 024 [facility] #65900, [address], [place], [place], [id number], 10/10/2024 12:15:30 prednison e 20 mg tablet 2023 024 [facility] #84236, [address], [place], [place], [id number], 10/10/2024 11:51:25 albuterol sulfate HFA 90 mcg/actua tion aerosol inhaler 2023 024 [facility] #15646, [address], [place], [place], [id number], 10/10/2024 11:52:00 dicyclomi ne 10 mg capsule 2023 024 [facility] #49792, [address], [place], [place], [id number], 10/10/2024 14:42:26 albuterol sulfate HFA 90 mcg/actua tion aerosol inhaler 2023 024 [facility] #81208, [address], [place], [place], [id number], 02/06/2024 12:48:07 Patient TargetsNo targets recorded. Patient Instructions Encounter Date Encounter Id Patient Instructions Last Modified By Organization Details Last Modified Time 02/06/2024 [id number] complete PFT w/ post bronchodilator spirometry* RONALD Not available 03/09/2024 10:15:20 04/04/2024 [id number] dementia rating scale-2* [email or web address] Not available 04/04/2024 11:10:09 depression screening* Not available 04/04/2024 11:10:18 alcohol misuse* [email or web address] Not available 04/04/2024 11:10:22 Timed Up and Go test (TUG)* [email or web address] Not available 04/04/2024 11:10:30 multi-dimensiona l health assessment questionnaire* [email or web address] Not available 04/04/2024 11:10:13 Personalized Hea lt [...] Negative [email or web address] Not available 04/04/2024 11:06:40 05/15/2024 [id number] complete PFT w/ post bronchodilator spirometry* Not available 05/15/2024 11:53:24 Reason for Referral None Reported. Results Created Date Observation Date Name Description Value Unit Range Abnormal Flag Note LastModifiedBy Organization Detail LastModifiedTime 03/09/20 24 03/08/2024 compl ete PFT w/ post bronc hodil ator cristobal metry * No observ ation record ed. [facility] ([facility] Sched[facility]) [address] [place], [address], 03/09/2024 10:15:20 09/12/20 24 09/12/2024 MRI, lumba r spine , w/wo contr ast No observ ation record ed. [address], [place], [address], 09/12/2024 15:11:57 09/12/20 24 09/12/2024 XR, lumba r spine , 2 view No observ ation record ed. [address], [place], [address], 09/13/2024 08:08:57 10/01/20 24 10/01/2024 XR, neck No observ ation record ed. [address] [facility], [place], [address], 10/01/2024 10:09:36 12/15/19 25 12/14/2024 XR, lumbo sacra l spine , 2 or 3 view No observ ation record ed. [address] [facility], [place], [address], 12/17/2024 10:10:10 Result Notes None recorded. Problems Name Problem SNOMED Code Status Onset Date Resolution Date Notes Provider Name and Address Organization Details Recorded Time Chronic back pain 717990157 Active Not Available [facility] 3 10:54:14 Generalized anxiety disorder 54591379 Active Not Available [facility] 3 10:54:14 Gastroesophag eal reflux disease 245413939 Active Not Available [facility] 3 10:54:14 Migraine 64233703 Active Not Available [facility] 3 10:54:14 Seborrheic dermatitis 96798800 Active Not Available [facility] 3 10:54:14 Hyperlipidemi a 18396025 Active Not Available [facility] 3 10:54:14 Essential hypertension 35049862 Active Not Available [facility] 3 10:54:14 Tinea corporis 08536526 Active Not Available [facility] 3 10:54:15 Obstructive sleep apnea syndrome 07460329 Active 2022 Not Available [facility] 3 10:54:15 Vocal cord paralysis 937718613 Active 2022 Not Available [facility] 3 10:54:14 Mild intermittent asthma 072375242 Active 2023 Andres Damian MD [address], [address], [place], [address] , [place] [facility] 4 12:45:50 Screening for malignant neoplasm of prostate Active 2023 JOVANI See [address], [address], [place], [address] , [place] [facility] [place] [facility] 4 11:04:20 Irritable bowel syndrome with diarrhea 838265004 Active 2023 JOVANI See [address], [address], [place], [address] , [place] [facility] 4 11:19:17 Allergic reaction to drug 843591777 Active 2023 JOVANI See [address], [address], [place], [address] , [place] [facility] [place] [facility] 4 15:31:42 Contact dermatitis 90031704 Active 2023 Maura Pastor RN null, [place] [facility] [place] [facility] 4 10:05:41 Serum vitamin B12 below reference range 730369175 Active 2023 JOVANI See [address], [address], [place], [address] , [place] 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 Procedures Surgical History Date Name Laterality Status Provider Name and Address Organization Details Recorded Time 04/04/20 24 Medicare Wellness CPT Code, subsequent completed February SILVIO [place] [employer] 03/30/2024 12:36:16 06/07/20 23 Neck spine disk surgery completed Flower Do RN [place] [facility] 12/21/2023 10:44:37 03/23/20 23 Ear Irrigation completed Corina Brewer MD [address], [address], [facility] [employer] [facility] 03/23/2023 13:35:25 Orthopedic Surgery completed Not Available [facility] 01/05/2023 02:42:54 other completed Not Available [facility] 01/05/2023 02:42:54 other completed Not Available [facility] 01/05/2023 02:42:54 Cholecystectomy completed Not Available [facility] 01/05/2023 02:42:54 Imaging Results Imaging Date Name Status LastModified by Organization Details LastModified Time 03/08/2024 complete PFT w/ post bronchodilator spirometry* completed [facility] ([facility] Sched[facility]) [address] [place], [address], 03/09/2024 10:15:20 09/12/2024 MRI, lumbar spine, w/wo contrast completed [address], [place], [address], 09/12/2024 15:11:57 09/12/2024 XR, lumbar spine, 2 view completed [place] [address] [facility] [address], [place], [address], 09/13/2024 08:08:57 10/01/2024 XR, neck completed [address] [facility] [address], [place], [address], 10/01/2024 10:09:36 12/14/2024 XR, lumbosacral spine, 2 or 3 view completed [address] [facility] [address], [place], [address], 12/17/2024 10:10:10 Procedure Notes None recorded. Medical Equipment None Reported. Allergies Allergen ID Allergen Name Allergen Category Reaction Reaction Severity Criticality Documentation Date Start Date Code Code System Note Provider Name and Address Organization Details Recorded Time 4320 Product containin g penicilli n (product) medicatio n Not available Not available Not available 01/05/2023 47985 8001 SNOMED Not Available [facility] 3 02:55:43 49134 latex environme nt,medica tion rash Not available Not available 04/04/2024 67136 91 RxNorm Maura Pastor RN [facility], [place] [facility] 4 10:41:56 79334 clonazepa m medicatio n itching moderate Not available 09/24/2024 2598 RxNorm JOVANI See [address], [address] [place] [address] [facility] 4 15:32:15 Medications Name Sig Start Date [...] Not Available alprazola m 0.5 mg tablet Take 1 tablet 3 times a day by oral route as needed for 30 days. 2024 active Not Available Not Available Not Avai lable alprazola m 0.25 mg tablet TAKE 1 [...] Details Last Updated DateTime 4 185.42 cm 36.8 kg/m2 727769. 27 g 97.9 [degF] 97 /min 96 % 96 % 116 mm[Hg] 76 mm[Hg] Linda Sam MA [facility] [employer] [facility] 4 11:37:11 Date Recorded Heart rate Respiratory rate Provider Fortino tierney and Address Organization Details Last Updated DateTime 02/06/2024 97 /min 15 /min Andres Damian MD [address], [place], [address], [facility] [employer] [facility] 02/06/2024 12:48:39 Date Recorded Body height Body mass index (BMI) Body weight Body temperature Respiratory rate Heart rate Oxygen saturation Oxygen saturation in Arterial blood by Pulse oximetry Systolic blood pressure Diastolic blood pressure Provider Name and Address Organization Details Last Updated DateTime 4 185.42 cm 37.2 kg/m2 907640. 05 g 98.4 [degF] 16 /min 79 /min 94 % 94 % 108 mm[Hg] 70 mm[Hg] Maura Pastor RN [facility] [employer] [facility] 4 10:45:50 Date Recorded Body height Body mass index (BMI) Body weight Heart rate Oxygen saturation Oxygen saturation in Arterial blood by Pulse oximetry Body temperature Systolic blood pressure Diastolic blood pressure Provider Name and Address Organization Details Last Updated DateTime 4 185.42 cm 37.1 kg/m2 865968. 46 g 77 /min 94 % 94 % 97.1 [degF] 112 mm[Hg] 80 mm[Hg] Zakiya Quinn MA [facility] [employer] [facility] 4 11:08:06 Date Recorded Heart rate Respiratory rate Provider Fortino tierney and Address Organization Details Last Updated DateTime 05/15/2024 77 /min 15 /min Andres Damian MD [address], [place], [address], [facility] [employer] [facility] 05/15/2024 11:56:31 Date Recorded Body height Body mass index (BMI) Body weight Body temperature Heart rate Oxygen saturation Oxygen saturation in Arterial blood by Pulse oximetry Respiratory rate Systolic blood pressure Diastolic blood pressure Provider Name and Address Organization Details Last Updated DateTime 4 185.42 cm 37.5 kg/m2 042883. 23 g 97.97 [degF] 72 /min 95 % 95 % 16 /min 134 mm[Hg] 90 mm[Hg] Maura Pastor RN [place] [facility] 4 11:41:41 Date Recorded Body height Body mass index (BMI) Body weight Body temperature Heart rate Oxygen saturation Oxygen saturation in Arterial blood by Pulse oximetry Systolic blood pressure Diastolic blood pressure Provider Name and Address Organization Details Last Updated DateTime 4 185.42 cm 37.5 kg/m2 565111. 23 g 98.4 [degF] 85 /min 95 % 95 % 122 mm[Hg] 80 mm[Hg] Muara Pastor RN [place] [facility] [place] [employer] 4 11:56:06 Social History Question Answer Notes LastModified by Organization Details LastModified Time Tobacco Smoking Status Former Smoker quit 14 years ago last reviewed 04/29/21 Not Available [facility] 01/05/2023 02:30:25 Do You Have An Advance Directive? No MIGRATION.0301 [id number] Information not available 01/05/2023 What Is Your Level Of Alcohol Consumption? None Quit Drinking 30 Years Ago MIGRATION.0301 [id number] Information not available 01/05/2023 What Is Your Level Of Caffeine Consumption? Moderate MIGRATION.0301 397107 Information not available 01/05/2023 How Much Tobacco Do You Chew? None MIGRATION.0301 864451 Information not available 01/05/2023 In The 14 Days Before Symptom Onset, Have You Had Close Contact With A Laboratory-conf irmed COVID-19 While That Case Was Ill? No MIGRATION.0301 [id number] Information not available 01/05/2023 In The 14 Days Before Symptom Onset, Have You Had Close Contact With A Person Who Is Under Investigation For COVID-19 While That Person Was Ill? No MIGRATION.0301 280813 Information not available 01/05/2023 What Type Of Diet Are You Following? REGULAR MIGRATION.0301 [id number] Information not available 01/05/2023 Which Illicit Or Recreational Drugs Have You Used? No MIGRATION.0301 829185 Information not available 01/05/2023 Do You Have An Electrostatic Air Filter? 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 16+yearssincelastc igarette [email or web address] Information not available 03/02/2023 Do You Have A Humidifier? No Information not available 02/06/2024 Where Do You Live? SingleLevelHouse Information not available 02/06/2024 Do You Have Moisture Problems In Your Home? No Information not available 02/06/2024 What Was The Date Of Your Most Recent Tobacco Screening? 05/15/2024 [email or web address] Information not available 05/15/2024 Do You Have Any Pets? Yes 4 Dogs At Home [email or web address] Information not available 03/02/2023 Do You Use Your Seat Belt Or Car Seat Routinely? Yes Information not available 02/06/2024 Do You Have Smoke And Carbon Monoxide Detectors In Your Home? Yes Information not available 02/06/2024 Are You Passively Exposed To Smoke? No MIGRATION.0301 [id number] Information not available 01/05/2023 Do You Or Have You Ever Used Smokeless Tobacco? Never Used Smokeless Tobacco MIGRATION.0301 [id number] Information not available 01/05/2023 Do You Feel Stressed (tense, Restless, Nervous, Or Anxious, Or Unable To Sleep At Night)? MI25331-3 Information not available 02/06/2024 Do You Use Any Illicit Or Recreational Drugs? No [email or web address] Information not available 03/02/2023 Do You Use Sunscreen Routinely? No MIGRATION.0301 864779 Information not available 01/05/2023 Have You Recently Traveled Abroad? No Information not available 02/06/2024 Do You Have Any Dietary Restrictions? No Information not available 02/06/2024 Sex: Unknown Functional Status Question Answer Note LastModified by Organizat ion Details LastModified Time What is your exercise level? None MIGRATION.[id number] Information not available 01/05/2023 Mental Status None recorded. Family History Relationship Description Onset Age of this Age Resolved Age Notes LastModified by Organization Details LastModified Time Mother Myocardial infarction MIGRATION.761 [id number] Not available 01/05/2023 02:42:55 Mother Diabetes mellitus MIGRATION.180 [id number] Not available 01/05/2023 02:42:56 Mother Arthritis MIGRATION.877 [id number] Not available 01/05/2023 02:42:56 Mother Hypertensive disorder MIGRATION.208 [id number] Not available 01/05/2023 02:42:56 Mother Cerebrovascu lar accident MIGRATION.080 [id number] Not available 01/05/2023 02:42:56 Maternal Grandfather Myocardial infarction MIGRATION.575 [id number] Not available 01/05/2023 02:42:56 Father Alcoholism MIGRATION.517 [id number] Not available 01/05/2023 02:42:56 Father Malignant tumor of pancreas MIGRATION.115 [id number] Not available 01/05/2023 02:42:56 Father Kidney disease MIGRATION.604 [id number] Not available 01/05/2023 02:42:56 Brother Malignant tumor of pancreas MIGRATION.604 [id number] Not available 01/05/2023 02:42:56 Brother Heart disease MIGRATION.984 [id number] Not available 01/05/2023 02:42:56 Sister Malignant neoplasm of liver MIGRATION.872 [id number] Not available 01/05/2023 02:42:56 Sister Arthritis MIGRATION.821 [id number] Not available 01/05/2023 02:42:56 Daughter Migraine Not available 02/06/2024 12:50:16 Medical History Condition Response HEADACHES/MIGRAINES Y ULCERS Y ALLERGIES/HAYFEVER Y HEARTBURN / REFLUX Y HYPERTENSION Y HIGH CHOLESTEROL / HYPERLIPIDEMIA Y CARDIAC ARRHYTHMIA Y ANXIETY DISORDER Y GERD/NAUSEA Y BOWEL PROBLEMS Y BACK / NECK PROBLEMS Y SLEEP DISORDER Y MIGRAINES Y Immunizations Vaccine Type Date Status Note Provider Nam e and Address Organization Details Recorded Time COVID-19, mRNA, LNP-S, PF, 100 mcg/0.5mL dose or 50 mcg/0.25mL dose 1 completed Not Available [facility] 06/15/2023 10:54:15 SARS-COV-2 (COVID-19) vaccine, UNSPECIFIED 1 completed Not Available [facility] 06/15/2023 10:54:15 SARS-COV-2 (COVID-19) vaccine, UNSPECIFIED 1 completed Not Available [facility] 06/15/2023 10:54:15 DTaP 8 completed Not Available [facility] 06/15/2023 10:54:15 SARS-COV-2 (COVID-19) vaccine, UNSPECIFIED 3 completed Flower Do RN null, [facility] 12/21/2023 10:47:54 SARS-COV-2 (COVID-19) vaccine, UNSPECIFIED 3 completed Flower Do RN null, [facility] 12/21/2023 10:48:01 Respiratory syncytial virus (RSV) MAB, unspecified 3 completed Flower Do RN null, [facility] 12/21/2023 10:48:18 Past Encounters Encounter ID Performer Location Encounter Start Date Encounter Closed Date Diagnosis/Indication Diagnosis SNOMED-CT Code Diagnosis ICD10 Code Diagnosis Note [id number] [facility] [address], [place] [address] 02/26/2021 00:00:00 02/27/2021 06:23:28 [id number] [facility] Podiatry Francisca Bruno [address] [facility] [address] [place] [address] 03/09/2021 00:00:00 03/10/2021 10:20:09 [id number] _ATHENA_M IGRATION_ DEFAULT_1 _1 , 04/29/2021 00:00:00 04/29/2021 11:45:04 [id number] [facility] [address] [place] [address] [place] [address] 09/07/2021 00:00:00 09/07/2021 22:27:08 [id number] [facility] [place] [place] [address] [place] [address] 09/28/2021 00:00:00 09/28/2021 18:57:24 [id number] [facility] [address]za [place] [address] [place] [address] 07/20/2022 00:00:00 07/21/2022 06:11:19 [id number] [facility] [address] [place] [address] [place] [address] 12/17/2022 00:00:00 12/18/2022 10:21:25 [id number] Corina Brewer MD [facility] [address] [place] [address] y [address] [place] [address] 01/12/2023 09:28:28 01/12/2023 10:03:39 Dyspnea 556243553 R06.00 Take alprazolam as needed for sob Nausea 992270138 R11.0 Anxiety 86489311 F41.9 Use alprazolam as needed [id number] Bren Patel, BRYOLOGIST-F [facility] Pulmonolo gy Francisca Bruno [address] [place] [address] 03/02/2023 15:09:18 03/04/2023 08:31:30 Dyspnea on exertion 41530491 R06.09 Unsure etiologyCh klever labs and PFTFurther recommenda tions after review of testing Obstructiv e sleep apnea syndrome 80606251 G47.33 Recent diagnosisH ome study 01/2023 with AHI 9 cm V5SJkzsczg ed use of current PAP and troublesho oting masksDiscu ssed the risks of uncorrecte d JV, including History of exposure to second hand smoke 493604820 Z77.22 From parents Ex-smoker 3394413 Z87.89 1 Not a candidate for LDCT Body mass index 30+ - obesity 349135083 Z68.37 Discussed weight management .Healthy well balanced meals.Incr ease exercise, ideally 30 minutes most days of the week. [id number] Corina Brewer MD [facility] [address] [place] [address] [place] [address] [place] [address] 03/23/2023 11:12:20 03/23/2023 11:56:33 Obstructive sleep apnea syndrome 19165671 G47.33 Impacted c erumen in right ear 1578999522 395256 H61.21 Chronic low back pain 27 9760400 M54.50 Chronic neck pain 504808 1123 107 M54.2 see neurosurge on [id number] Aamir Feliz MD [facility] [place] [address] [place] [address] 05/05/2023 12:24:11 05/05/2023 16:39:14 Vocal cord paralysis 547859837 J38.00 [id number] Bren Amanda, [facility] Pulmonolo gy [place] [address] [place] [address] 05/04/2023 14:30:43 05/04/2023 17:05:04 Asthma 875707823 J45.909 PFT with no obstructio nCheck methacholi ne challenge Dyspnea on exertion 6084 5006 R06.09 Multifacto ralIGE slightly high, eosinophil s slightly high, RAST with some positivesA ll others normal Obstructiv e sleep apnea syndrome 25839931 G47.33 Recent diagnosisH ome study 01/2023 with AHI 9 cm G3YOistwfg d today with 90% use greater than [...] least 4 hours prior to bedtime. Ex-smoker 1310724 Z87.89 1 Not a candidate for LDCT History of exposure to second hand smoke 653768635 Z77.22 From parents Body mass index 30+ - obesity 928631790 Z68.37 Discussed weight management .Healthy well balanced meals.Incr ease exercise, ideally 30 minutes most days of the week. [id number] Bren Patel, [facility] Pulmonolo gy Francisca [address] [place] [address] 06/08/2023 15:26:19 06/08/2023 16:02:51 Asthma 553831837 J45.909 PFT with no obstructio nMethachol ine challenge 05/31/23 [address] ICS maintenanc eINstructe d on technique Dyspnea on exertion 6084 5006 R06.09 Multifacto ralIGE slightly high, eosinophil s slightly high, RAST with some positivesA ll others normal Obstructiv e sleep apnea syndrome 37075514 G47.33 Recent diagnosisH ome study 01/2023 with AHI 9 cm S2FSuoigjb d today with 87% use greater than [...] least 4 hours prior to bedtime. Ex-smoker 8443721 Z87.89 1 Not a candidate for LDCT Body mass index 30+ - obesity 981525261 Z68.37 Discussed weight management .Healthy well balanced meals.Incr ease exercise, ideally 30 minutes most days of the week. [id number] Corina Brewer MD [facility] [place] [address] [place] [address] [place] [address] 06/14/2023 11:32:10 06/14/2023 12:18:18 Pre-surgery evaluation 665205997 Z01.818 Cleared for surgery [id number] Bren Patel, BRYOLOGIST-[facility] Pulmonolo gy [place] [address] [place] [address] 4 08/05/2023 14:00:58 08/05/2023 14:35:14 Asthma 653041814 J45.909 PFT with no obstructio nMethachol ine challenge 05/31/23 positiveSt art ICS maintenanc eINstructe d on technique Dyspnea on exertion 6084 5006 R06.09 Multifacto ralIGE slightly high, eosinophil s slightly high, RAST with some positives Obstructiv e sleep apnea syndrome 53135831 G47.33 Recent diagnosisH ome study 01/2023 with AHI 9 cm [id number] d today with 100% useAPAP 5-15Median pressure [...] least 4 hours prior to bedtime. Ex-smoker 8741058 Z87.89 1 Not a candidate for LDCT Body mass index 30+ - obesity 824825366 Z68.37 Discussed weight management .Healthy well balanced meals.Incr ease exercise, ideally 30 minutes most days of the week. [id number] JOVANI See [facility] randee [address] [place] [address] [place] [address] 12/21/2023 10:29:41 12/21/2023 11:14:37 Acid reflux 263953984 K21.9 Anxiety 49947689 F41.9 Asthma 983642128 J45.90 9 Chronic ob structive pulmonary disease 22950896 J44.9 Hyperlipidemia 88201610 E78.5 Low back pain 164149174 M54.50 Obstructiv e sleep apnea syndrome 95896478 G47.33 [id number] Andres Damian MD [address] [address] 02/06/2024 11:17:09 02/07/2024 08:45:57 Mild intermittent asthma 447247120 J45.20 Obstructiv e sleep apnea syndrome 04229169 G47.33 [id number] JOVANI See [facility] [place] jeff [address] [place] [address] [place] [address] 04/04/2024 10:18:19 04/04/2024 11:14:25 Adult health examination 291514201 Z00.00 Screening for disorder 507566748 Z13.9 Asthma 712905260 J45.90 9 Chronic back pain 782537 002 G89.29 Essential hypertension 72941285 I10 Gastroesop hageal reflux disease 458170848 K21.9 Hyperlipidemia 50675018 E78.5 Migraine 20160525 G43.90 9 Obstructiv e sleep apnea syndrome 29234231 G47.33 Vocal cord paralysis 302 917343 J38.00 Screening for malignant neoplasm of prostate 735852128 Z12.5 Irritable bowel syndrome with diarrhea 808834370 K58.0 [id number] Andres Damian MD [address] [address] 05/15/2024 10:40:51 05/16/2024 09:07:28 Mild intermittent asthma 405678862 J45.20 Obstructiv e sleep apnea syndrome 12047064 G47.33 [id number] JOVANI See [facility] [address] [place] [address] [place] [address] 07/05/2024 11:32:22 07/05/2024 12:06:35 Fatigue 41786169 R53.83 Gastroesop hageal reflux disease 989199601 K21.9 Essential hypertension 61391831 I10 Generalize d anxiety disorder 59071212 F41.1 Hyperlipidemia 15305643 E78.5 Irritable bowel syndrome with diarrhea 700189467 K58.0 Obstructiv e sleep apnea syndrome 52347642 G47.33 [id number] JOVANI See [address] [address] 10/10/2024 11:04:54 10/10/2024 12:21:16 Persistent insomnia 102848465 G47.09 Irritable bowel syndrome with diarrhea 509992085 K58.0 Candidiasis of skin 4988 3006 B37.2 under arms Gastroesop hageal reflux disease 810396345 K21.9 Essential hypertension 67750787 I10 Hyperlipidemia 24969819 E78.5 Health Concerns Section Related Observation LastModified by Organization Detai ls LastModified Time None Recorded Concern Status LastModified by Organization Details LastModified Time None Recorded Advance Directives Directive N: Payers Encounter Date Sequence Insurance Name Policy Number Policy Rojas Covered Member ID Rojas Member ID Guarantor Name 02/06/2024 1 [facility] (MEDICARE REPLACEMENT/A DVANTAGE - HMO) [id number] Lauri Almeida [id number] Lauri Almeida 04/04/2024 1 [facility] (MEDICARE REPLACEMENT/A DVANTAGE - HMO) [id number] Lauri Almeida [id number] Lauri Almeida 05/15/2024 1 [facility] (MEDICARE REPLACEMENT/A DVANTAGE - HMO) [id number] Lauri Almeida [id number] Lauri Almeida 07/05/2024 1 [facility] (MEDICARE REPLACEMENT/A DVANTAGE - HMO) [id number] Lauri Almeida [id number] Lauri Almeida 10/10/2024 1 [facility] (MEDICARE REPLACEMENT/A DVANTAGE - HMO) [id number] Lauri Almeida [id number] Lauri Almeida Notes Date Note Type Note Provider Name and Address Organization Details Recorded Time 02/06/2024 text/html Primary care/Ref erring provider: Vernon Barger PA-C CC: I did not fill [...] summer Alleviating factors: rest Modified [employer] [facility] ([facility]C) Dyspnea Scale - Grade 1 Grade [...] no Environmental exposures: Nicotine smoke: 1.5 ppd 9929-0642 = 15 pack years [place]: no Dye: no Dust mites: yes Mold: no Damp basement: no Wood burning stove: no Animal dander: dogs Cockroaches: no Pollen: yes Arsenic: no Asbestos: Beryllium: no Cadmium: no Chromium: no Cocke smoke: no Diesel fumes: no Nickel: no Silica: no Soot: no During the [facility] home sleep study on 03/07/23, AHI = 9. At home since 08/05/23, [...] chance of dozing. Andres Damian MD [address], [place], [address], [employer] 02/06/2024 13:13:27 04/04/2024 text/html ever since he cabral d gallbladder removed , if he eats , he has to have a BM right away. JOVANI See [address], [place], [address], [employer] 04/20/2024 13:29:50 05/15/2024 text/html Primary care/Ref erring provider: Vernon Barger PA-C Patient is here to go over his asthma management. Initial development of shortness of breath: uration of shortness of breath: 1 yearCondition of shortness of breath: stableTiming of shortness of breath: noneFrequency: once a monthLimits activities: yesAggravating factors: lawn mowing, summerAlleviating factors: rest Modified [employer] [facility] (mMRC) Dyspnea Scale - Grade 1Grade 0 [...] noEdema: no Environmental exposures:Nicotine smoke: 1.5 ppd 0123-3846 = 15 pack yearsPaint: noDye: noDust mites: yesMold: noDamp basement: noWood burning stove: noAnimal dander: dogsCockroaches: noPollen: yesArsenic: noAsbestos: 1977-1978Beryllium: noCadmium: noChromium: noCoal smoke: noDiesel fumes: noNickel: noSilica: noSoot: no During the [facility] home sleep study on 01/11/23, AHI = [...] slight chance of dozing. Andres Damian MD [address] [place] [address], [address], [place], [address], [place] - [facility] [employer] 05/15/2024 11:56:43 07/05/2024 text/html 9 am he gets up , back in bed a 1 pm . needs something to boost energy. back really hurts today , getting a nerve block in a week in [place] JOVANI See [address], [place], [address], [facility] [employer] [facility] 07/09/2024 16:15:25 10/10/2024 text/html constant loose s tools for 4 years , since cholecystectomy . red rash under arms bilaterally JOVANI See [address], [place], [address], [employer] [facility] 10/22/2024 13:47:14
--- OUTSIDE RECORDS SUMMARY | 2024-12-30 13:33 | XMS_ITS | Clinical Summary ---
Author Organization [facility] Address [address] [place] [address] Care Team Providers Care Trauma Surgeon Name Role Phone Sahra Zaidi MD Primary [...] age to complete this topic Care Teams Trauma Surgeon Relationship Specialty Start Date End Date Sahra Zaidi MD [address], [place], [place] [address] PCP - General 05/21/13
--- OUTSIDE RECORDS SUMMARY | 2024-12-30 13:33 | XMS_ITS | Clinical Summary ---
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 Gender Identity Not on file Sexual Orientation [...] C Screening 1955 Prostate Cancer Screening-PSA 1955 Hepatitis B Screening 1975 Pneumococcal vaccine 65+ (1 of 2 - PCV) 01/23/1976 Zoster Vaccine (1 of 2) 2007 Abdominal Aortic Aneurysm (A AA) Screen 2022 Well Visit 65+ 2022 Fall Risk Assessment 07/01/2024 07/01/2023 Covid-19 Vaccine (5 - 2023-2 5 season) 2024 11/15/2022, 10/08/2021, 02/24/2021, Additional history exists Influenza Vaccine (#1) 2024 DTaP/Tdap/Td Vaccine (3 - Td or Tdap) 05/28/2026 05/28/2016, 03/07/2008 Medical Devices Implanted Type Area Supervisor Wound Device Identifier Shelf Expiration Date Model / Serial / Lot Bioventus Osteoamp Select Fiber 1cc Oasf-01 - [id number] - [id number] Implanted:Qty: 1 on 07/01/2023 by Andrea Shelby MD at [facility] N/A: Spine Cervical BIOVENTUS 02/14/2028 OASF-01 / [id number] / [employer] Cage Ti3z Cif [id number] -6 Deg 222-0607 - [id number] Implanted:Qty: 1 on 07/01/2023 by Andrea Shelby MD at [facility] N/A: Spine Cervical [employer] 01/21/2028 222-0607 / / [id number] [employer] Cage Ti3z Cif [id number] -6 Deg 222-0607 - [id number] Implanted:Qty: 1 on 07/01/2023 by Andrea Shelby MD at [facility] N/A: Spine Cervical [employer] 01/21/2028 222-0607 / / [id number] [employer] Plate 2-Level 26 Mm Cervical 300-0226 - [id number] Implanted:Qty: 1 on 07/01/2023 by Andrea Shelby MD at [facility] N/A: Spine Cervical [employer] [id number] / / [employer] Screw Self Drilling Variable 4.0x16mm 980-8402 - [id number] Implanted:Qty: 4 on 07/01/2023 by Andrea Shelby MD at [facility] N/A: Spine Cervical [employer] [id number] / / [employer] Screw Self-Drilling 4x18mm 838-1807 - [id number] Implanted:Qty: 2 on 07/01/2023 by Andrea Shelby MD at [facility] N/A: Spine Cervical [employer] [id number] / / Insurance MEDICARE SOLUTIONS MEDICARE SOLUTIONS MEDICARE SOLUTIONS MEDICARE SOLUTIONS Care Teams Neurology Stroke Physician Relationship Specialty Start Date End Date Corina Brewer MD [address] [place] [address] [place] [address] PCP - General Family Medicine 06/20/23
--- OUTSIDE RECORDS SUMMARY | 2024-12-30 13:33 | XMS_ITS | Encounter Summary ---
Author Organization [employer] [facility] Address 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
--- OUTSIDE RECORDS SUMMARY | 2024-12-30 13:33 | XMS_ITS | Clinical Summary ---
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
--- OUTSIDE RECORDS SUMMARY | 2024-12-30 13:33 | XMS_ITS | Referral Summary ---
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 Gender Identity Not on file Sexual Orientation [...] on file Medical Devices Implanted Type Area Algologist Device Identifier Shelf Expiration Date Model / Serial / Lot Bioventus Osteoamp Select Fiber 1cc Oasf-01 - [id number] - [id number] Implanted:Qty: 1 on 07/01/2023 by Andrea Shelby MD at [facility] N/A: Spine Cervical [employer]OV[employer]US 02/14/2028 OASF-01 / [id number] / [employer] Cage Ti3z Cif [id number] -6 Deg 222-0607 - [id number] Implanted:Qty: 1 on 07/01/2023 by Andrea Shelby MD at [facility] N/A: Spine Cervical [employer] 01/21/2028 222-0607 / / [id number] [employer] Cage Ti3z Cif [id number] -6 Deg 222-0607 - [id number] Implanted:Qty: 1 on 07/01/2023 by Andrea Shelby MD at [facility] N/A: Spine Cervical [employer] 01/21/2028 222-0607 / / [id number] [employer] Plate 2-Level 26 Mm Cervical 300-0226 - [id number] Implanted:Qty: 1 on 07/01/2023 by Andrea Shelby MD at [facility] N/A: Spine Cervical [employer] 300-0226 / / [employer] Screw Self Drilling Variable 4.0x16mm 301-4016 - [id number] Implanted:Qty: 4 on 07/01/2023 by Andrea Shelby MD at [facility] N/A: Spine Cervical [employer] 301-4016 / / [employer] Screw Self-Drilling 4x18mm 301-4018 - [id number] Implanted:Qty: 2 on 07/01/2023 by Andrea Shelby MD at [facility] N/A: Spine Cervical [employer] 301-4018 / / Insurance MEDICARE SOLUTIONS MEDICARE SOLUTIONS MEDICARE SOLUTIONS MEDICARE SOLUTIONS Care Teams Coal Yard Supervisor Relationship Specialty Start Date End Date Corina Brewer MD [facility] [place] [address] PCP - General Family Medicine 06/20/23
[2024-12-30 13:52] VITALS: BP 119/68; PULSE 92; RESP 19; TEMP 36.4; O2SAT 95
--- OUTSIDE RECORDS SUMMARY | 2024-12-30 14:33 | XMS_ITS | Referral Summary ---
Author Organization [facility] Address [address] [place] [address] Care Team Providers Care Front End Technician Name Role Phone Sahra Zaidi MD Primary Care Provider [phone] Source Comments [facility],non-[facility] Affiliates and Associated Physician Practices is amultiple site organization consisting of ambulatory clinics and hospital sitesin [place], [place], [place] and [place]. This disclosure is being madepursuant to the Care Everywhere program and may not contain all information available regarding this patient. Last updated 18.[facility] [employer] Allergies No known active allergies Medications * [...] of Treatment Not on file Care Teams Front End Technician Relationship Specialty Start Date End Date Sahra Zaidi MD [address] [place] [address] [place] [address] PCP - General 03/11/20
--- OUTSIDE RECORDS SUMMARY | 2024-12-30 14:33 | XMS_ITS | Clinical Summary ---
Author Organization [facility] Address [address] [place] [address] Care Team Providers Care Electrical Instrument Maker Name Role Phone Sahra Zaidi MD Primary Care Provider [phone] Source Comments [facility],non-owned Affiliates and Associated Physician Practices is amultiple site organization consisting of ambulatory clinics and hospital sitesin [place], [place], [place] and [place]. This disclosure is being madepursuant to the Care Everywhere program and may not contain all information available regarding this patient. Last updated 18.[facility] [employer] Allergies No known active allergies Medications * [...] age to complete this topic Care Teams Electrical Instrument Maker Relationship Specialty Start Date End Date Sahra Zaidi MD [address] [place] [address] [address] [place] [address] PCP - General 03/11/20
--- OUTSIDE RECORDS SUMMARY | 2024-12-30 14:34 | XMS_ITS | Clinical Summary ---
Author Organization [facility] Address [address] [place] [address] Care Team Providers Care Business Technology Analyst Name Role Phone Sahra Zaidi MD Primary [...] age to complete this topic Care Teams Business Technology Analyst Relationship Specialty Start Date End Date Sahra Zaidi MD [address], [place], [place] [address] PCP - General 05/21/13
--- OUTSIDE RECORDS SUMMARY | 2024-12-30 14:34 | XMS_ITS | Clinical Summary ---
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 Gender Identity Not on file Sexual Orientation [...] 05/28/2016, 03/07/2008 Medical Devices Implanted Type Area Secondary School Principal Device Identifier Shelf Expiration Date Model / Serial / Lot Bioventus Osteoamp Select Fiber 1cc Oasf-01 - [id number] - [id number] Implanted:Qty: 1 on 07/01/2023 by Andrea Shelby MD at [facility] N/A: Spine Cervical BIOV[employer]US 02/14/2028 OASF-01 / [id number] / [employer] Cage Ti3z Cif [id number] -6 Deg 222-0607 - [id number] Implanted:Qty: 1 on 07/01/2023 by Andrea Shelby MD at [facility] N/A: Spine Cervical [employer] 01/21/2028 222-0607 / / [id number] [employer] Cage Ti3z Cif [id number] -6 Deg 222-0607 - [id number] Implanted:Qty: 1 on 07/01/2023 by Andrea Shelby MD at [facility] N/A: Spine Cervical [employer] 01/21/2028 222-0607 / / [id number] [employer] Plate 2-Level 26 Mm Cervical 300-0226 - [id number] Implanted:Qty: 1 on 07/01/2023 by Andrea Shelby MD at [facility] N/A: Spine Cervical [employer] 3000226 / / [employer] Screw Self Drilling Variable 4.0x16mm 668-8839 - [id number] Implanted:Qty: 4 on 07/01/2023 by Andrea Shelby MD at [facility] N/A: Spine Cervical [employer] [id number] / / [employer] Screw Self-Drilling 4x18mm 606-2130 - [id number] Implanted:Qty: 2 on 07/01/2023 by Andrea Shelby MD at [facility] N/A: Spine Cervical [employer] [id number] / / Insurance MEDICARE SOLUTIONS [facility] Address: [address] [address] MEDICARE SOLUTIONS [facility] Address: [address] [address] [place] [address] MEDICARE SOLUTIONS [facility] Address: [address] [address] [place] [address] MEDICARE SOLUTIONS [facility] Address: [address] [address] [place] [address] Care Teams Fan Installer Relationship Specialty Start Date End Date Corina Brewer MD [address] [place] [address] [place] [address] PCP - General Family Medicine 06/20/23
--- OUTSIDE RECORDS SUMMARY | 2024-12-30 14:34 | XMS_ITS | Clinical Summary ---
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
--- OUTSIDE RECORDS SUMMARY | 2024-12-30 14:34 | XMS_ITS ---
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 ; Low back pain M54.5 ; Other chronic pain G89.29 ; Postlaminectomy syndrome, not elsewhere classified M96.1 ; 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 current use of opiate analgesic Z79.891 ; [...] not elsewhere classified (ICD-10 - M96.1) 09/17/2024 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 NPO greater than 8 hours and has commercial truck driver for sedation. Complains of low back and right leg pain, testicular pain. No further complaints. Follow-up Questionnaire: Pain Evaluation This patient encounter was conducted at the [facility]. The patient completed a questionnaire on the [...] 1 tablet Orally Three times a day Gary 7.5-325 MG Tablet 1 tablet as needed Orally every 6 hrs Azithromycin 250 MG Tablet Oral Medication List reviewed and reconciled with the patientNot-Taking Dicyclomine HCl 20 MG Tablet 1 tablet Orally Three times a day Not-Taking Gary 7.5-325 MG Tablet 1 tablet as needed [...] sedative were also recorded.. * Procedure Codes: 31351 NJX INTERLAMINAR LMBR/[id number] MOD SED SAME PHYS/QHP 5/>YRS * Preventive [...] patient encount er was conducted at the [facility]. The patient completed a questionnaire on the [...]
--- OUTSIDE RECORDS SUMMARY | 2024-12-30 14:34 | XMS_ITS | Continuity of Care Document ---
Author Organization [facility] Address [address] [place] [address] Phone Care Team Providers Care Cloth Examiner Hand Name Role Phone Sal Sánchez PT Unavailable [...] Date Provider Providers Copied on Encounter [facility], [address], [place], [place], [id number], tel:[phone] [place] No Information Gonzalo Huang. . Referring Provider: Andrea Shelby, [address] [place] [address], [place], [address]. tel:[phone] [place] [address], [address] [address], [place], [place], [id number], [place] tel:[phone] [place] No Information Gonzalo Sal. . Referring Provider: Andrea Shelby, [address] [place] [address], [address]. tel:[phone] [place] [address] [address] [place] [address], [place], [id number], [place] tel:[phone] [place] No Information Gonzalo Sal. . Referring Provider: Andrea Shelby, [address] [place] [address], [address]. tel:[phone] [place] [address], [address] [address], [place], [id number], tel:[phone] [place] No Information Gonzalo Sal. . Referring Provider: Andrea Shelby, [address] [place] [address], [address]. tel:[phone] [place] [address], [id number], [place] tel:[phone] [place] No Information Gonzalo Sal. . Referring Provider: Andrea Shelby, [address] [place] [address], [address]. tel:[phone] [place] [address], [id number], [place] tel:[phone] [place] No Information Clarisse Levy . Referring Provider: Andrea Shelby [address] [place] [address], [address]. tel:[phone] [place] [address] [address] [address], [place], [place], [id number], tel:[phone] [place] No Information Gonzalo Sal. . Referring Provider: Andrea Shelby [address] [place] [address] [place], [address]. tel:[phone] Family History Family Member Type Diagnosis Age At Onset No Information Payers Payer name Insurance type Covered constitution party ID Yobani ching(s) [facility] Community Plan Dual Complete CI [id number] Social History Type Description Quantity Date [...]
--- OUTSIDE RECORDS SUMMARY | 2024-12-30 14:34 | XMS_ITS | Encounter Summary ---
Author Organization [employer] Address 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
--- OUTSIDE RECORDS SUMMARY | 2024-12-30 14:34 | XMS_ITS | Referral Summary ---
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 Gender Identity Not on file Sexual Orientation [...] on file Medical Devices Implanted Type Area Us Marketing Director Device Identifier Shelf Expiration Date Model / Serial / Lot Bioventus Osteoamp Select Fiber 1cc Oasf-01 - [id number] - [id number] Implanted:Qty: 1 on 07/01/2023 by Andrea Shelby MD at [facility] N/A: Spine Cervical [employer] 02/14/2028 OASF-01 / [id number] / [employer] Cage Ti3z Cif [id number] -6 Deg 222-0607 - [id number] Implanted:Qty: 1 on 07/01/2023 by Andrea Shelby MD at [facility] N/A: Spine Cervical [employer] 01/21/2028 222-0607 / / [id number] [employer] Cage Ti3z Cif [id number] -6 Deg 222-0607 - [id number] Implanted:Qty: 1 on 07/01/2023 by Andrea Shelby MD at [facility] N/A: Spine Cervical [employer] 01/21/2028 222-0607 / / [id number] [employer] Plate 2-Level 26 Mm Cervical 300-0226 - [id number] Implanted:Qty: 1 on 07/01/2023 by Andrea Shelby MD at [facility] N/A: Spine Cervical [employer] 300-0226 / / [employer] Screw Self Drilling Variable 4.0x16mm 301-4016 - [id number] Implanted:Qty: 4 on 07/01/2023 by Andrea Shelby MD at [facility] N/A: Spine Cervical [employer] 301-4016 / / [employer] Screw Self-Drilling 4x18mm 301-4018 - [id number] Implanted:Qty: 2 on 07/01/2023 by Andrea Shelby MD at [facility] N/A: Spine Cervical [employer] 301-4018 / / Insurance MEDICARE [facility] Address: [id number] [place] [address] MEDICARE [facility] Address: [address] [address] MEDICARE [facility] Address: [id number] [place] [address] MEDICARE [facility] Address: [id number] [place] [address] Care Teams Economics Faculty Member Relationship Specialty Start Date End Date Corina Brewer MD [facility] [place] [address] PCP - General Family Medicine 06/20/23
--- OUTSIDE RECORDS SUMMARY | 2024-12-30 14:34 | XMS_ITS | Patient Health Summary ---
Author Organization [facility] Address [address] [place] [address] Care Team Providers Care Supervisor Briar Shop Name Role Phone Sahra Zaidi MD Primary Care Provider [phone] Note from [facility],non-owned Affiliates and Associated Physician Practices is amultiple site organization consisting of ambulatory clinics and hospital sitesin [place], [place], [place] and [place]. This disclosure is being madepursuant to the Care Everywhere program and may not contain all information available regarding this patient. Last updated 18.[facility] Allergies No known active allergies Medications [...] Rupesh Macedo MD MR ORDERABLES Care Teams Supervisor Briar Shop Relationship Specialty Start Date End Date Sahra Zaidi MD [address] [place] [phone] PCP - General 03/11/20
--- NOTE | 2024-12-30 14:41 | ED_ITS ---
HPI - Fall General Chief Complaint: Fall Stated Complaint: i need an xray Time Seen by Provider: 12/30/24 14:20 Source: patient Mode of arrival: ambulatory Limitations: no limitations History of Present Illness HPI Narrative: This is a 69-year-old male that presents to the emergency department after multiple falls with low back pain. Reports he does not have great balance due to chronic low back issues. He is currently seeing a spine surgeon for this. Reports 1 time he did hit his head. He did not lose consciousness. He is also endorsing some neck pain. Denies vision changes, vomiting, saddle anesthesia, bowel/bladder incontinence, focal numbness or weakness. Related Data Home Medications ?Medication ?Instructions ?Recorded ?Confirmed ?Last Taken ?Type amlodipine 5 mg tablet 5 mg PO DAILY 03/05/20 12/30/24 03/04/20 08:00 History fenofibrate 160 mg tablet 160 mg PO DAILY 03/05/20 04/04/20 03/04/20 08:00 History hydroxyzine pamoate 50 mg capsule 50 mg PO QID 03/05/20 04/04/20 03/04/20 08:00 History losartan 100 1 tablet PO DAILY 03/05/20 04/04/20 03/04/20 08:00 History mg-hydrochlorothiazide 12.5 mg tablet sertraline 100 mg tablet 100 mg PO BID 03/05/20 04/04/20 03/04/20 21:00 History Allergies Allergy/AdvReac Type Severity Reaction Status Date / Time clonazepam Allergy Mild Rash Verified 12/30/24 14:27 Review of Systems Review of Systems: CONSTITUTIONAL: Denies fever EYES: Denies visual changes GASTROINTESTINAL: Denies vomiting MUSCULOSKELETAL: Reports back pain, and myalgia. NEUROLOGIC: Denies numbness, or weakness. All systems reviewed & are unremarkable except as noted in HPI and below PMFSH Past Medical History Medical History (Updated 12/30/24 @ 15:40 by Bren Khan PA-C) JV (obstructive sleep apnea) Morbid obesity due to excess calories Type 2 diabetes mellitus Cholelithiasis and acute cholecystitis with obstruction (~03/05/20) Hypertension Anxiety Hx of rotator cuff tear GERD (gastroesophageal reflux disease) H/O: HTN (hypertension) Hypercholesteremia History of heart attack Heart murmur Hx of migraines Surgical History Surgical History Hx of spinal fusion Hx of rotator cuff surgery Right rotator cuff Hx of cardiac cath Family History Family History Mother Acute myocardial infarction Father Acute myocardial infarction Sibling Prostate carcinoma Social History Social History Social History: The patient tells me that he quit smoking about 14 years ago. He lives with his who is the durable power estate attorney for healthcare. Patient desires to be a full code. He has 1 child that is a son. He is disabled. He quit drinking alcohol about 30 years ago. No marijuana or illicit drugs. Smoking packs per day: 3 Smoking cigarettes per day: 60.0 Years smoked: 34 Smoking pack-years: 102.00 Smoking status: Former smoker Tobacco type: cigarettes Alcohol intake: former Substance use: former Last use: 2005 Living arrangements: with family Gender identity (if verbalized by the patient): Male Spiritual care concerns: No Agree to blood products: Yes Exam Narrative: GENERAL: Well-appearing, well-nourished, and in no acute distress. HEAD: Normocephalic, atraumatic. EYES: PERRLA and EOMI. ENT: Nares clear, no rhinorrhea or epistaxis. Mucous membranes moist. Oropharynx without tonsillar hypertrophy exudate or other lesions. Bilateral TMs pearly hodges non-bulging NECK: Supple. No adenopathy or masses. CHEST: Clear to auscultation. No respiratory distress. No wheezes rales or rhonchi HEART: Regular rate and rhythm. No murmur heard. Normal peripheral pulses. BACK: No midline thoracic spine tenderness. Tender to palpation of midline lumbar spine EXTREMITIES: Normal range of motion. No edema or obvious deformity. SKIN: Warm, dry, no rash. NEURO: No focal deficits. Alert and oriented x3. Cranial nerves 2-12 grossly intact PSYCH: Normal mood and affect Course Course Emergency Course: patient updated on his workup and agrees with plan of care Vital Signs Vital signs: Vital Signs Temperature 97.6 F 12/30/24 13:52 Pulse Rate 92 12/30/24 13:52 Respiratory Rate 19 12/30/24 13:52 Blood Pressure 119/68 12/30/24 13:52 Pulse Oximetry 95 12/30/24 13:52 Oxygen Delivery Room Air 12/30/24 13:52 Temperature 97.6 F 12/30/24 13:52 Pulse Rate 92 12/30/24 13:52 Respiratory Rate 19 12/30/24 13:52 Blood Pressure 119/68 12/30/24 13:52 Pulse Oximetry 95 12/30/24 13:52 Oxygen Delivery Room Air 12/30/24 13:52 MDM - Fall MDM Narrative Medical decision making narrative: Patient presents to the emergency department after falls with head injury, neck pain, low back pain. CT brain, cervical spine and lumbar spine without acute findings. Patient is neurologically intact. Patient updated on his workup and agrees with plan of care. He does report he has follow-up with his spine surgeon this week. He was given warnings to return to the ER Differential Diagnosis Differential diagnosis: Likely concussion without loss of consciousness and other (cervical spine fracture, lumbar spine fracture, contusion, muscle strain) Imaging Data Radiologist's impression: ITS Impressions Head CT 12/30/24 15:14 Impression: No acute intracranial hemorrhage or suspicious mass effect. Inflammatory sinus disease Cervical Spine CT 12/30/24 15:22 Impression: No acute fracture. Lumbar Spine CT 12/30/24 15:28 Impression: Degenerative disease without acute fracture Critical Care Time Critical Care Time Critical Care Time: No Discharge Plan Discharge Clinical Impression: Fall, Head injury, Low back pain Patient Disposition: Home, Self-Care Condition: Stable Instructions: Head Injury (ED), Back Pain (ED) Additional Instructions: Return to the emergency department if you experience fever, chest pain, shortness of breath, abdominal pain with nausea and vomiting, weakness, numbness, bowel/bladder incontinence, or any other symptoms that are concerning to you. Rest. Ice to the area. Ejxm-sbr-enhtzys pain medication as needed Follow up with your spine surgeon Patient Language: Arabic Prescriptions: No Action hydrocodone-acetaminophen 5-325 mg tablet 1 tablet PO Q6H PRN (Reason: pain) Qty: 14 0RF cephalexin 500 mg capsule 500 mg PO Q8H Qty: 21 0RF methocarbamol [Robaxin-750] 750 mg tablet 750 mg PO TID 10 Days Qty: 30 0RF sertraline 100 mg tablet 100 mg PO BID hydroxyzine pamoate 50 mg capsule 50 mg PO QID amlodipine 5 mg tablet 5 mg PO DAILY fenofibrate 160 mg tablet 160 mg PO DAILY losartan-hydrochlorothiazide 100-12.5 mg tablet 1 tablet PO DAILY hydrocodone-acetaminophen 5-325 mg tablet 1 - 2 tablet PO Q6H PRN (Reason: pain) Qty: 14 0RF Follow-up/Referrals: Charbel,JOVANI Davis [Primary Care Provider] -
[2024-12-30 15:49] VITALS: BP 122/68; PULSE 87; RESP 21; TEMP 36.7; O2SAT 96
== END 2024-12-30 15:50 | disposition home or self-care (01) ==
PROVIDERS: Emergency Provider Physician Assistant; PCP Physician Assistant
DX: S09.90XA Unspecified injury of head, initial encounter (principal); M54.50 Low back pain, unspecified; W19.XXXA Unspecified fall, initial encounter; G47.33 Obstructive sleep apnea (adult) (pediatric); E11.9 Type 2 diabetes mellitus without complications; I10 Essential (primary) hypertension; K21.9 Gastro-esophageal reflux disease without esophagitis; E78.00 Pure hypercholesterolemia, unspecified; Z87.891 Personal history of nicotine dependence
CPT/HCPCS: 70450; 72125; 72131; 99284

== ENCOUNTER 2025-07-31 12:49 | Outpatient (CLI) | payer MEDICARE, SELFPAY ==
--- OUTSIDE RECORDS SUMMARY | 2024-10-02 12:10 | XMS_ITS ---
Author Organization [facility] Address [address] [place] [address] Care Team Providers Care Kitchen Porter Name Role Phone Harry Merritt Unavailable [phone] REASON FOR VISIT follow up / [facility] Encounters Encounter Location Date Provider Diagnosis [facility] [address] [place] [address] 10/02/2024 Harry Merritt Plan Of Treatment No Information Progress Notes * Lauri ALMEIDADOB:1955 (70 yo M)Acc No.[id number]:10/02/2024 Progress Notes Patient: Lauri TURK Provider: Jose R eMrritt MD :1955 A ge:69 Y S ex:Male Date:10/02/2024 Address:[facility] [id number] Subjective: * Chief Complaints: * 1 . follow up / [facility]. * Medical History: Objective: * Vitals: Assessment: Plan: * Treatment: * * Electronic signature of Caitlin Merritt MD on 07/31/2025 at 01:56 PM EDT Sign off status: Pending * Provider: Jose R Merritt MD Date: 12/02/2023 Generated for Lulú baldwin/Marjorie/Jonathonitting on: 0 07/31/2025 01:56 PM EDT
--- NOTE | ~2025-07-31 | XR_ITS ---
XR lumbar spine 2-3V Indication: lumbar pain Comparison: None Findings: Posterior fixation of L5 and S1, the hardware is intact. No acute fracture is identified. Moderate loss of disc at L4-5 with severe loss of disc at L5-S1. Soft tissues unremarkable Impression: No acute abnormality. Reviewed, dictated and finalized at location A. Impression: No acute abnormality.
--- OUTSIDE RECORDS SUMMARY | 2025-07-31 12:56 | XMS_ITS | Clinical Summary ---
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
--- OUTSIDE RECORDS SUMMARY | 2025-07-31 12:56 | XMS_ITS | Encounter Summary ---
Author Organization [facility] Address 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
--- OUTSIDE RECORDS SUMMARY | 2025-07-31 12:56 | XMS_ITS | Clinical Summary ---
Author Organization [facility] Address [address] [place] [id number] Care Team Providers Care Rock Cutter Name Role Phone Sahra Zaidi MD Primary Care Provider [phone] Social History Tobacco Use Types Packs/Day Years [...] Td Vaccines ( 1 - Tdap) 01/23/1976 Pneumococcal Vaccine: 50+ Ye ars (1 of 1 - PCV) 2007 Zoster Vaccines (1 of 2) 2007 COVID-19 Vaccine (1 - 2023-2 5 season) 2025 RSV Immunization or 60+ Years (1 - [...] age to complete this topic Care Teams Rock Cutter Relationship Specialty Start Date End Date Sahra Zaidi MD [address] [place] [address] PCP - General 05/21/13
--- OUTSIDE RECORDS SUMMARY | 2025-07-31 12:56 | XMS_ITS | Clinical Summary ---
Author Organization [facility] Address [address] [place] [address] Care Team Providers Care Cinder Block Mason Name Role Phone Sahra Zaidi MD Primary Care Provider [phone] Source Comments [facility],non-owned Affiliates and Associated Physician Practices is amultiple site organization consisting of ambulatory clinics and hospital sitesin [place], [place], [place] and [place]. This disclosure is being madepursuant to the Care Everywhere program and may not contain all information available regarding this patient. Last updated 18.[facility] Allergies No known active allergies Medications * Be aware that medications may not be up to date on this document. Alwaysverify current medications with the patient. 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 Gender Identity Not on file Sexual Orientation Not on file Occupation Industry Job Start Date Job End Date Disabled Not on file Not on file Not on file Last Filed Vital Signs Vital Sign Reading Time Taken Comments Blood Pressure - - Pulse - - Temperature - - Respiratory Rate - - Oxygen Saturation - - Inhaled Oxygen Concentration - - Weight 117.9 kg (260 lb) 06/18/2010 1:18 PM CDT Height 185.4 cm (6' 1) 06/18/2010 1:18 PM CDT Body Mass Index [...] (1 of 2) 2007 AAA SCREENING 2022 DEPRESSION SCREENING 11/07/2024 COVID-19 VACCINE ( - 2023-2 5 season) 2025 INFLUENZA VACCINE (#1) 2025 Respiratory Syncytial Virus (RSV) Vaccine Pt: or [...] to complete this topic MENINGOCOCCAL (Group B) VACC INE SHARED DECISION-MAKING Aged Out No longer eligibl e based on patient's age to complete this topic MENINGOCOCCAL GROUPS A/C/Y/W VACCINE Aged Out No longer eligible b ased on patient's age to complete this topic Insurance AET MEDICARE [facility] MANAGED MEDICARE ADV Care Teams Cinder Block Mason Relationship Specialty Start Date End Date Sahra Zaidi MD [address] [place] [address] [place] [phone] PCP - General 03/11/20
--- OUTSIDE RECORDS SUMMARY | 2025-07-31 12:56 | XMS_ITS | Encounter Summary ---
Author Organization [facility] Healthcare Address [address] [place] [address] Care Team Providers Care Ultimate Hoops Referee Name Role Phone Vernon Barger Primary Care Provider + Marah Brannon NP Primary Care Provider Reason for Visit * Auth/Cert (Routine) Specialty Diagnoses / Procedures Referred By Contac t Referred To Contact Procedures [place] REMOVAL POSTERIOR SEGMENTAL INSTRUMENTATION [place] EXPLORATION SPINAL FUSION Referral ID Status Reason Start Date Expiration Date Visits Re quested Visits Authorized [id number] 1 1 Encounter Details Date Type Department Care Team (Late st Contact Info) Description 04/11/2025 Hospital [facility] Operating [facility] [address] [place], [place] [id number] [place] [address] [place] [address] Pre-op testing Social History Tobacco Use Types Packs/Day Years Used Date Smoking Tobacco: Former Cigarettes Smokeless Tobacco: Never Alcohol Use Standard Drinks/Week Comments Not Currently 0 (1 standard drink = 0.6 oz pur e alcohol) Social Connection and Isolation Panel Answer Date Recorded In a typical week, how many times do you talk on the phone with family, friends, or neighbors? More than three times a week 07/24/2025 How often do you get togethe r with friends or relatives? More than three times a week 07/24/2025 How often do you attend chur or yazidism services? Never 07/24/2025 Do you belong to any clubs o r organizations such as holiness groups, unions, fraternal or athletic groups, or school groups? No 07/24/2025 How often do you attend meet ings of the clubs or organizations you belong to? Never 07/24/2025 Are you , , di vorced, , never , or living with a partner? 07/24/2025 AUDIT-C Answer Date Recorded Q1: How often do you have a drink containing alc ohol? Never 07/23/2025 Average Number of Drinks Not on file 025 Frequency of Binge Drinking Not on file 07/08 Overall Financial Resource Strain (CARDIA) Answe r Date Recorded How hard is it for you to pa y for the very basics like food, housing, medical care, and heating? Not hard at all 07/24/2025 Hunger Vital Sign Answer Date Recorded Within the past 12 months, y ou worried that your food would run out before you got the money to buy more. Never true 07/24/20 25 Within the past 12 months, t he food you bought just didn't last and you didn't have money to get more. Never true 07/24/2025 PRAPARE - Transportation Answer Date Re corded In the past 12 months, has l ack of transportation kept you from medical appointments or from getting medications? No 07/08 In the past 12 months, has l ack of transportation kept you from meetings, work, or from getting things needed for daily living? No 07/24/2025 Housing Stability Vital Sign Answer Holger e Recorded In the last 12 months, was t here a time when you were not able to pay the mortgage or rent on time? Yes 07/24/2025 In the past 12 months, how m any times have you moved where you were living? 0 07/24/2025 At any time in the past 12 m [facility], were you homeless or living in a half-way (including now)? No 07/24/2025 [facility] Utilities Answer Date Recorded In the past 12 months has th e electric, gas, oil, or water company threatened to shut off services in your home? No 07/24/2025 Personal Safety Answer Date Recorded Have you ever been in or are you currently in a harmful physical or emotional relationship or is someone making you feel afraid or unsafe? 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 Gender Identity Not on file Sexual Orientation Not on file documented as of this encounter Last Filed Vital Signs Vital Sign Reading Time Taken Comments Blood Pressure 137/77 03/25/2025 11:22 AM CDT Pulse 88 03/25/2025 11:22 AM CDT Temperature 36.6 C (97.9 F) 03/25/2025 11:22 AM CDT Respiratory Rate - - Oxygen Saturation 94% 03/25/2025 11:22 AM CDT Inhaled Oxygen Concentration - - Weight 135.2 kg (298 lb) 03/25/2025 11:22 AM CDT Height 185.4 cm (6' 1) 03/20/2025 9:55 AM CDT Body Mass Index 39.32 03/20/2025 9:55 AM CDT documented in this encounter Functional Status documented as of this encounter Miscellaneous Notes * Perioperative Nursing Note - Maura Bergeron RN - 04/08/2025 10:34 AM CDT Surgery was cancelled d/t insurance. Echo results available. SUPERVISOR WEAVING Mary Mcconnell reviewed. Lvm for patient to review results. Sent echo results to pcp office for surgical clearance. Nothing further requested for anesthesia. * Perioperative Nursing Note - Melinda Gao RN - 03/26/2025 4:46 PM CDT Patient's called, not able to get in for ECHO with PCP until after surgery. Ordered ECHO at [facility] under PRABHU Minaya. Scheduled for 04/05 [facility] 1130. Patient and aware. * Pre-Procedure Instructions - Eleni Liu RN - 03/20/2025 10:05 AM CDT Pre-Anesthesia Testing (PAT) Clinic [address] [place] [address] Medical Office Building [address] We are pleased that you and your doctor have chosen [facility] for your surgery. We hope that the following information will help make your visit a pleasant one. Surgery date: 04/11/2025 Surgery time: To Be Determined. You will get a call with your SURGERY TIME on the BUSINESS DAY BEFORE surgery, usually in the AFTERNOON. Surgery location: [facility], [address] [place] [address], Use Surgery Entrance F on the day of surgery. Notify your surgeon AND the PAT clinic if you: Develop any symptoms of a cold (cough, fever, shortness of breath, sore throat, fatigue, severe headache, body aches, diarrhea or vomiting) Have any medication changes Test positive for Covid / Flu / RSV Go to Urgent Care / Emergency Department / hospitalized Call surgeon's office if you do not have a ride home and/or someone to stay with you after surgery Check with your SURGEON if you need to STOP taking: Aspirin (ordered by your doctor) 14 days before surgery STOP taking: SUPPLEMENTS (alpha-lipoic acid, Fish oil / [place] 3, chromium, coenzyme Q10, echinacea, garlic, olaf, ginkgo, ginseng, grapefruit extract, licorice, nettle, saw palmetto, [place]ona wort, turmeric) This is not a complete list of supplements to hold. You may call if your supplement is not listed. VITAMINS (Multivitamins, Vitamins E) 7 days before surgery STOP taking: NSAIDS (Excedrin, Motrin / Advil / Ibuprofen, Aleve / naproxen, Meloxicam, Toradol, etc.) Acetaminophen (Tylenol) is OKAY to continue. 3 days before surgery: No recreational drugs including marijuana / THC / CBD 24 hours before surgery: No smoking / vaping / chewing tobacco No alcoholic beverages Night before your surgery: Nothing to eat or drink after midnight, including water, gum, candy and mints. Take a shower the night before surgery (clean washcloth, no loofah) Wash with ANTI-BACTERIAL soap OR HIBICLENS surgical soap Use a CLEAN towel Sleep on CLEAN sheets, and wear clean pajamas to bed No make-up, nail czech, lotions, oils, or powders after showering Day of surgery: Colbert your teeth but DO NOT swallow any water. Do not glue your dentures Repeat SHOWER above Bring photo ID and insurance card Wear loose fitting, comfortable clothing Leave all valuables and jewelry at home, including piercing's, watches, rings If you are 17 years old or younger, a parent or guardian must come with you If it applies to you, please bring the following the morning of surgery Instructions For Your Medications: IF THERE ARE NO INSTRUCTIONS LISTED - continue taking up until surgery, but NOT on the day of surgery. TAKE or HOLD medication as indicated below with a SIP of WATER. Pre-Surgery Instructions: Medication Instructions albuterol HFA (PROVENTIL HFA,VENTOLIN HFA,PROAIR HFA) 90 mcg/actuation inhaler Take morning of surgery if needed ALPRAZolam (XANAX) 1 mg tablet Take morning of surgery if needed amLODIPine (NORVASC) 5 mg tablet Take morning of surgery cyanocobalamin (Vitamin B-12) 1,000 mcg sublingual tablet Don't take on day of surgery fenofibrate (TRIGLIDE) 160 mg tablet Don't take on day of surgery levocetirizine (XYZAL) 5 mg tablet Don't take on day of surgery losartan-hydroCHLOROthiazide (HYZAAR) 100-12.5 mg per tablet Don't take on day of surgery sertraline (ZOLOFT) 100 mg tablet Take morning of surgery loperamide (IMODIUM) 2 mg capsule Don't take on day of surgery oxyCODONE-acetaminophen (PERCOCET) 7.5-325 mg per tablet Take morning of surgery if needed zolpidem (AMBIEN) 10 mg tablet Don't take on day of surgery If you have Diabetes: KEEP INSULIN PUMP ON - bring extra supplies KEEP CONTINUOUS GLUCOSE MONITOR ON - bring extra supplies (make sure CGM is away from surgical site) Check your blood sugar while fasting on morning of surgery Call your doctor / PAT clinic with questions After your Outpatient Surgery: You must have a responsible adult drive you home - you will NOT be allowed to drive, take a cab, Uber, or Lyft After having anesthesia, you CANNOT be alone at home or in a hotel. Someone will need to stay with you for 24 hours after surgery Any questions regarding your procedure or post operative instructions, please call your surgeons office What to bring if you are spending the night: Toiletry items (toothbrush & paste, brush or comb, denture container) Contact lens, hearing aids, glass case if you use any of these items CPAP/BIPAP if you have Obstructive Sleep Apnea Phone change release manager, pillow, etc. if desired The hospital will provide you with a gown REMEMBER to call the Pre-Anesthesia Testing department at with your questions or concerns. Thank you! documented in this encounter Plan of Treatment Not on file documented as of this encounter Procedures Procedure Name Priority Date/Time Associated Diagnosis Comments EGFR Routine 03/25/2025 11:04 AM CDT Pre-op testing DIFFERENTIAL AUTO Routine 03/25/2025 11: 04 AM CDT Pre-op testing CBC WITH AUTO DIFFERENTIAL Routine 03/25/2025 11:04 AM CDT Pre-op testing BASIC METABOLIC PANEL Routine 03/25/2025 11:04 AM CDT Pre-op testing documented in this encounter Results * eGFR (03/25/2025 11:04 AM CDT) eGFR >90 >=60 mL/min/1. 73 m2 Comment: Interpretive Data Reference Interval Normal >/= 90 mL/min/1.73m2 Mildly decreased* 60 - 89 mL/min/1.73m2 Mildly to moderately decreased 45 - 59 mL/min/1.73m2 Moderately to severely decreased 30 - 44 mL/min/1.73m2 Severely decreased 15 - 29 mL/min/1.73m2 Kidney Failure < 15 mL/min/1.73m2 *Relative to young adult level Estimated glomerular filtration rate is determined by the 2020 CKD-EPI equation recommended by the National Kidney Foundation (A Unifying Approach to GFR Estimation: Recommendations of the NKF-ASK Task Force on Reassessing the Inclusion of Race in Diagnosing Kidney Disease, JASN 2020). The CKD-EPI equation should not be used for patients with unstable renal function and has not been validated in children and those over 70. Current interpretive data was last reviewed 2021. Blood 03/25/2025 11:0 4 AM CDT 03/25/2025 12:48 PM CDT Mayelin Mcconnell NP LAB BLOOD ORDERABLES Final Result [address] Department [place] [address] * Differential, auto (03/25/2025 11:04 AM CDT) Neutrophil abs 6.03 1.50 - 6.50 K/cumm Imm gran abs 0.06 0.00 - 0.10 K/cumm [facility] Lymphocyte abs 1.26 0.80 - 3.30 K/cumm [facility] Monocyte abs 0.66 0.20 - 0.80 K/cumm [facility] Eosinophil abs 0.19 0.00 - 0.50 K/cumm [facility] Basophil abs 0.05 0.00 - 0.10 K/cumm [facility] Neutrophil pct 73.1 % [facility] Comment: Interpretive Data Percent cell count reference ranges are not reported, since discordance with absolute values may lead to misinterpretation of CBC data. Current Interpretive Data was last revised on 2018. Imm gran pct 0.7 % [facility] Comment: Interpretive Data Percent cell count reference ranges are not reported, since discordance with absolute values may lead to misinterpretation of CBC data. Current Interpretive Data was last revised on 2018. Lymphocyte pct 15.3 % [facility] Comment: Interpretive Data Percent cell count reference ranges are not reported, since discordance with absolute values may lead to misinterpretation of CBC data. Current Interpretive Data was last revised on 2018. Monocyte pct 8.0 % [facility] Comment: Interpretive Data Percent cell count reference ranges are not reported, since discordance with absolute values may lead to misinterpretation of CBC data. Current Interpretive Data was last revised on 2018. Eosinophil pct 2.3 % [facility] Comment: Interpretive Data Percent cell count reference ranges are not reported, since discordance with absolute values may lead to misinterpretation of CBC data. Current Interpretive Data was last revised on 2018. Basophil pct 0.6 % [facility] Comment: Interpretive Data Percent cell count reference ranges are not reported, since discordance with absolute values may lead to misinterpretation of CBC data. Current Interpretive Data was last revised on 2018. Blood 03/25/2025 11:0 4 AM CDT 03/25/2025 12:48 PM CDT Mayelin Mcconnell NP LAB BLOOD ORDERABLES Final Result [facility] [address] [facility] Department [place] [address] * CBC with auto differential (03/25/2025 11:04 AM CDT) WBC 8.25 3.80 - 9.90 K/cumm Hgb 14.9 13.0 - 17.5 g/dL [facility] Hct 43.8 38.9 - 50.3 % [facility] Plt 292 150 - 400 K/cumm [facility] MPV 9.2 9.1 - 12.3 fL [facility] RBC 4.94 4.30 - 5.80 M/cumm [facility] MCV 88.7 81.3 - 96.4 fL [facility] MCH 30.2 27.1 - 33.3 pg [facility] MCHC 34.0 32.3 - 35.7 g/dL [facility] RDW CV 14.4 11.1 - 14.9 % [facility] RDW SD 45.9 35.7 - 48.1 fL [facility] NRBC abs 0.00 0.00 - 0.01 K/cumm [facility] Blood 03/25/2025 11:0 4 AM CDT 03/25/2025 12:48 PM CDT Mayelin Mcconnell SUPERVISOR WEAVING LAB BLOOD ORDERABLES Final Result [address] [place] [address] * (ABNORMAL) Basic metabolic panel (03/25/2025 11:04 AM CDT) [facility] Sodium 140 135 - 145 mmol/L Potassium, pl 3.6 3.3 - 4.9 mmol/L [facility] Chloride 107 97 - 110 mmol/L [facility] CO2 21(L) 22 - 32 mmol/L [facility] Anion gap 12 2 - 15 mmol/L [facility] BUN 19 6 - 25 mg/dL [facility] Creatinine 0.82 0.80 - 1.30 mg/dL [facility] Glucose 128 70 - 199 mg/dL [facility] Comment: Interpretive Data Fasting glucose >/= 126 mg/dl is diagnostic for diabetes. Fasting is defined as no caloric intake for at least 8 hours. Fasting glucose between 100 mg/dl to 125 mg/dl is diagnostic of prediabetes. In a patient with classic symptoms of hyperglycemia or hyperglycemic crisis, a random glucose >/= 200 mg/dl is diagnostic for diabetes. In the absence of unequivocal hyperglycemia, results should be confirmed by repeat testing. The classification and Diagnosis of Diabetes Diabetes Care 202; 46: S19-S40. Current interpretive data was last revised 2022. Calcium 9.7 8.5 - 10.3 mg/dL [facility] Blood 03/25/2025 11:0 4 AM CDT 03/25/2025 12:48 PM CDT Narrative [facility] - 03/25/2025 1:08 PM CDT Has the patient fasted?->No Mayelin Mcconnell SUPERVISOR WEAVING LAB BLOOD ORDERABLES Final Result [address] Department [place] [address] documented in this encounter Visit Diagnoses Diagnosis Pre-op testing Unspecified pre-operative examination documented in this encounter Admitting Diagnoses Diagnosis Fusion of spine of lumbar region documented in this encounter Discontinued Medications Medication Sig Discontinue Reason Start Date End Da te TiZANidine (ZANAFLEX) 2 mg capsule Take 1 capsule (2 mg total) by mouth 3 (three) times a day as needed for muscle spasms Therapy completed 03/20/2025 documented as of this encounter Historical Medications * This list may reflect changes made after this encounter. cyanocobalamin (Vitamin B-12) 1,000 mcg sublingual tablet Take 1 tablet (1,000 mcg total) by mouth daily added in this encounter Care Teams Ultimate Hoops Referee Relationship Specialty Start Date End Date Vernon Barger PA [address] [place] [address] PCP - General Internal Medicine 03/25/25 07/14/25 Marah Brannon NP [address] [facility] [place] [address] PCP - General Nurse Practitioner 07/15/25 documented as of this encounter
--- OUTSIDE RECORDS SUMMARY | 2025-07-31 12:56 | XMS_ITS | Clinical Summary ---
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 Primary Care Provider Allergies Active Allergy Reactions Criticality Noted Date Comments Adhesive Itching Low 07/23/2025 Clonazepam Itching Low 07/05/2025 Penicillins Rash Medium 03/20/2025 Medications amLODIPine (NORVASC) 5 mg tablet Take 1 tablet (5 mg total) by mouth daily Active fenofibrate (TRIGLIDE) 160 mg tablet Take 1 tablet (160 mg total) by mouth daily Active sertraline (ZOLOFT) 100 mg tablet Take 4 tablets (400 mg total) by mouth daily Active loperamide (IMODIUM) 2 mg capsule Take 1 capsule (2 mg total) by mouth as needed Active levocetirizine (XYZAL) 5 mg tablet Take 1 tablet (5 mg total) by mouth every evening Active ALPRAZolam (XANAX) 1 mg tablet Take 0.5 mg by mouth 3 (three) times a day as needed for anxiety Active zolpidem (AMBIEN) 10 mg tabletIndications: Sleep-Onset Insomnia Take 1 tablet (10 mg total) by mouth nightly as needed for sleep Active albuterol HFA (PROVENTIL HFA,VENTOLIN HFA,PROAIR HFA) 90 mcg/actuation inhaler Inhale 2 puffs every 4 (four) hours as needed Active losartan-hydroCHLO ROthiazide (HYZAAR) 100-12.5 mg per tablet Take 1 tablet by mouth daily Active cyanocobalamin (Vitamin B-12) 1,000 mcg sublingual tablet Take 1 tablet (1,000 mcg total) by mouth daily Active tiotropium (SPIRIVA) 18 mcg per inhalation capsule Place 2 puffs (1 capsule total) into inhaler and inhale daily Active cyclobenzaprine (FLEXERIL) 10 mg tablet Take 1 tablet (10 mg total) by mouth 3 (three) times a day as needed for muscle spasms 50 tablet 2 5 Active oxyCODONE-acetamin ophen (PERCOCET) 7.5-325 mg per tabletIndications: Pain Take 1 tablet by mouth every 4 (four) hours as needed for pain 40 tablet 5 Active ondansetron ODT (ZOFRAN-ODT) 4 mg disintegrating tablet Take 1 tablet (4 mg total) by mouth every 8 (eight) hours as needed for nausea or vomiting 20 tablet 1 5 Active HYDROcodone-acetam inophen (NORCO) 10-325 mg per tabletIndications: Pain Take 1 tablet by mouth every 4 (four) hours as needed for pain 40 tablet 5 Active oxyCODONE-acetamin ophen (PERCOCET) 7.5-325 mg per tabletIndications: Pain Take 1 tablet by mouth every 4 (four) hours as needed for pain 40 tablet 3 025 Discontin ued(Thera py completed ) HYDROcodone-acetam inophen (NORCO) 5-325 mg per tabletIndications: Pain Take 1 tablet by mouth every 6 (six) hours as needed 025 Discontin ued(Stop Taking at Discharge ) Active Problems Problem Noted Date Diagnosed Date Fusion of spine of lumbar region 03/19/2025 Cervical spinal stenosis 05/31/2023 Encounters Date Type Department Care Team Description 07/23/2025 7:19 AM CDT Anesthesia Event [facility] Operating Room [address] [place] [address] London Wolfe MD Thomas, Angelina Marie, CRNA 07/23/2025 7:00 AM CDT - 07/23/2025 9:00 AM CDT Surgery [facility] Operating Room [address] [place] [address] Andrea Shelby MD REMOVAL OF BILATERAL L5/S1 INSTRUMENTATION 07/23/2025 5:44 AM CDT - 07/25/2025 7:00 PM CDT Hospital Encounter [address] [address] Andrea Shelby MD Fusion of spine of lumbar region (Primary Dx) Discharge Disposition: Discharge to home, home health skilled care from Last 3 Months Surgical History Surgery Date Site/Laterality Comments CHOLECYSTECTOMY ROTATOR CUFF REPAIR Right BACK SURGERY cage placement in lumbar region CERVICAL SPINE SURGERY fusion X2 COLONOSCOPY Medical History Medical History Date Comments Motion sickness Sleep apnea Hypertension Asthma Irritable bowel syndrome H/O cervical spine surgery Former smoker COPD (chronic obstructive pulmonary disease) Social History Tobacco Use Types Packs/Day Years [...] 07/24/2025 How often do you attend chur ch or anglican services? Never 07/24/2025 Do you belong to any clubs o r organizations such as amish groups, unions, fraternal or athletic groups, or [...] any time in the past 12 [facility], were you homeless or living in a longterm (including now)? No 07/24/[address] 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 Gender Identity Not on file Sexual Orientation Not on file Obstetrics History Last Filed Vital Signs Vital Sign Reading Time Taken Comments Blood Pressure 97/52 07/25/2025 3:00 PM CDT Pulse 89 07/25/2025 5:55 PM CDT Temperature 36.9 C (98.4 F) 07/25/2025 3:00 PM CDT Respiratory Rate 16 07/25/2025 3:00 PM CDT Oxygen Saturation 92% 07/25/2025 5:55 PM CDT Inhaled Oxygen Concentration - - Weight 135.2 kg (298 lb) 07/23/2025 6:24 AM CDT Height 185.4 cm (6' 1) 07/23/2025 6:24 AM CDT Body Mass Index 39.32 07/23/2025 6:24 AM CDT Plan of Treatment Health Maintenance Due Date Last Done Comments Colon Cancer Screening-Colonoscopy 1957 Depression Screening 1957 Hepatitis C Screening 1957 Prostate Cancer Screening-PSA 1957 Hepatitis B Screening 1975 Pneumococcal vaccine 65+ (1 of 2 - PCV) 01/23/1976 Zoster Vaccine (1 of 2) 2007 Abdominal Aortic Aneurysm (A AA) Screen 2022 Well Visit 65+ 2022 Covid-19 Vaccine (5 - 2024-2 6 season) 2025 11/15/2022, 10/08/2021, 02/24/2021, Additional history exists Influenza Vaccine (#1) 2025 DTaP/Tdap/Td Vaccine (3 - Td or Tdap) 05/28/2026 05/28/2016, 03/07/2008 Fall Risk Assessment 07/25/2026 07/25/2025 Medical Devices Implanted Type Area Quality Assurance Calibrator Device Identifier Shelf Expiration Date Model / Serial / Lot Bioventus Osteoamp Select Fiber 1cc Oasf-01 - [id number] - [id number] Implanted:Qty: 1 on 07/01/2023 by Andrea Shelby MD at [facility] N/A: Spine Cervical BI[employer]US 02/14/2028 OASF-01 / [id number] / [employer] Cage Ti3z Cif [id number] -6 Deg 222-0607 - [id number] Implanted:Qty: 1 on 07/01/2023 by Andrea Shelby MD at [facility] N/A: Spine Cervical [employer] 01/21/2028 222-0607 / / [id number] [employer] Cage Ti3z Cif [id number] -6 Deg 222-0607 - [id number] Implanted:Qty: 1 on 07/01/2023 by Andrea Shelby MD at [facility] N/A: Spine Cervical [employer] 01/21/2028 222-0607 / / [id number] [employer] Plate 2-Level 26 Mm Cervical 300-0226 - [id number] Implanted:Qty: 1 on 07/01/2023 by Andrea Shelby MD at [facility] N/A: Spine Cervical [employer] 300-0226 / / [employer] Screw Self Drilling Variable 4.0x16mm -6 - [id number] Implanted:Qty: 4 on 07/01/2023 by Andrea Shelby MD at [facility] N/A: Spine Cervical [employer] [id number] / / [employer] Screw Self-Drilling 4x18mm 301-8 - [id number] Implanted:Qty: 2 on 07/01/2023 by Andrea Shelby MD at [facility] N/A: Spine Cervical [employer] [id number] / / Procedures Procedure Name Priority Date/Time Associated Diagnosis Comments CT CHEST PE W CONTRAST ED Urgent/IP Urgent 07/25/2025 4:48 PM CDT HOME O2 EVAL (DESATURATION SCREEN) Routine 07/25/2025 1:10 PM CDT D-DIMER, QUANTITATIVE STAT 07/24/2025 5:54 PM CDT BLOOD GAS, VENOUS STAT 07/24/2025 5:5 4 PM CDT XR CHEST 1 VIEW IP Routine 07/24/2025 2:18 PM CDT EGFR Routine 07/24/2025 12:56 PM CDT PRO B-TYPE NATRIURETIC PEPTIDE Routine 07/24/2025 12:56 PM CDT BASIC METABOLIC PANEL Routine 07/24/2025 12:56 PM CDT CBC WITHOUT DIFFERENTIAL Routine 07/24/2025 12:56 PM CDT FL FLUOROSCOPY < 1 HOUR IP Routine 07/23/2025 10:29 AM CDT AR AN ELECTIVE ENDOTRACHEAL AIRWAY Routine 07/23/2025 7:42 AM CDT REMOVAL HARDWARE 07/23/2025 7:19 AM CDT Fusion of spine of lumbar region Case Notes C-ARM, SCOPE, DRILL, ASSIST, UNIVERSAL REMOVAL SET, 3 HOURS, patient says he is a difficult stick, please consider this when placing IV.Magalys set Special Needs C-ARM, SCOPE, DRILL, ASSIST, UNIVERSAL REMOVAL SET, 3 HOURS from Last 3 Months Results * CT Chest PE (CTA) W Contrast (07/25/2025 4:48 PM CDT) Anatomical Region Laterality Modality Body N/A Computed Tomogra phy 07/25/2025 5:45 PM CDT Impressions 07/25/2025 5:45 PM CDT 1. No imaging evidence of pulmonary embolism. 2. No acute findings in the chest. Electronically signed by: Marleen Zhong M.D. Narrative 07/25/2025 5:45 PM CDT EXAMINATION: CT CHEST PE (CTA) W CONTRAST TECHNIQUE: Computed Tomographic images were acquired using a Chest Angiographic protocol optimized for pulmonary embolism. Contrast enhanced transaxial images were obtained following the intravenous administration of 100 ml of nonionic contrast. Multiplanar reformatted images and three-dimensional images were obtained on the 3-D workstation and sent to the PACS archival system. HISTORY: Suspected PE COMPARISON: None FINDINGS: There are no filling defects in the pulmonary arterial vasculature. There is mild bibasilar atelectasis. There are calcified granulomas in the left lower lobe. No pleural effusions. No pneumothorax. No pneumonic consolidations. No suspicious pulmonary nodules. Imaged thyroid gland is unremarkable. No suspicious supraclavicular or axillary lymphadenopathy. No suspicious mediastinal lymphadenopathy. Mildly prominent right hilar lymph nodes measuring up to 10 mm in transverse short axis. Upper abdomen-unremarkable appearance of imaged portion of the liver. The gallbladder is not seen. Cholecystectomy clips in the gallbladder fossa Calcified granulomas spleen. Unremarkable appearance of the pancreas and adrenal glands. Imaged portion of the kidneys are unremarkable. Unremarkable appearance of the vasculature. The soft tissues are unremarkable. Multilevel degenerative changes of the spine. Partially seen anterior cervical spinal fixation. No acute skeletal findings. There is CT imaging evidence of right heart strain: No Procedure Note Marleen Zhong MD - 07/25/2025 EXAMINATION: CT CHEST PE (CTA) W CONTRAST TECHNIQUE: Computed Tomographic images were acquired using a Chest Angiographic protocol optimized for pulmonary embolism. Contrast enhanced transaxial images were obtained following the intravenous administration of 100 ml of nonionic contrast. Multiplanar reformatted images and three-dimensional images were obtained on the 3-D workstation and sent to the PACS archival system. HISTORY: Suspected PE COMPARISON: None FINDINGS: There are no filling defects in the pulmonary arterial vasculature. There is mild bibasilar atelectasis. There are calcified granulomas in the left lower lobe. No pleural effusions. No pneumothorax. No pneumonic consolidations. No suspicious pulmonary nodules. Imaged thyroid gland is unremarkable. No suspicious supraclavicular or axillary lymphadenopathy. No suspicious mediastinal lymphadenopathy. Mildly prominent right hilar lymph nodes measuring up to 10 mm in transverse short axis. Upper abdomen-unremarkable appearance of imaged portion of the liver. The gallbladder is not seen. Cholecystectomy clips in the gallbladder fossa Calcified granulomas spleen. Unremarkable appearance of the pancreas and adrenal glands. Imaged portion of the kidneys are unremarkable. Unremarkable appearance of the vasculature. The soft tissues are unremarkable. Multilevel degenerative changes of the spine. Partially seen anterior cervical spinal fixation. No acute skeletal findings. There is CT imaging evidence of right heart strain: No IMPRESSION: 1. No imaging evidence of pulmonary embolism. 2. No acute findings in the chest. Electronically signed by: Marleen Zhong M.D. Jeremiah Kauffman MD IM CT PROCEDURES Final Result * (ABNORMAL) D-dimer, quantitative (07/24/2025 5:54 PM CDT) D-Dimer 801(H) <=499 ng/mL FEU Comment: Interpretive data FDA approved the D-dimer, in conjunction with a low or moderate pretest probability score, to exclude venous thromboembolic events (VTE) (PE and DVT) in outpatients when the D-dimer result is < 500 ng/ml FEU. Evidence supports using an age-adjusted D-dimer cut-off for outpatients older than 50 (age x 10) to improve specificity without sacrificing sensitivity. Example: age 68, VTE cut-off 680 ng/ml FEU. References; Schouten HT et al. Brit Med J. 2013;346:f2492. Seble et al. Annals Int Med. 2015;163:701-11. Current interpretive data was last revised on 2019. Blood 07/24/2025 5:54 PM CDT 07/24/2025 6:05 PM CDT Jeremiah Kauffman MD LAB BLOOD ORDERABLES Final Resu Performing Organization Address [facility] de Phone Number [address] [place] [address] * (ABNORMAL) Blood gas, venous (07/24/2025 5:54 PM CDT) pH, Venous 7.43 7.32 - 7.43 PCO2, Venous 39(L) 40 - 50 mmHg [facility] PO2, Venous 56 mmHg [facility] Comment: Interpretive Data No Reference Range Established Current Interpretive Data was last revised on 2018. HCO3 Venous, Calculated 25 20 - 30 mmol/L [facility] BE, venous 1 mmol/L [facility] Comment: Interpretive Data No Reference Range Established Current Interpretive Data was last revised on 2018. Blood 07/24/2025 5:54 PM CDT 07/24/2025 6:05 PM CDT Jeremiah Kauffman MD LAB BLOOD ORDERABLES Final Resu lt Performing Organization Address [facility] de Phone Number [address] [place] [address] * XR Chest 1 View (07/24/2025 2:18 PM CDT) Anatomical Region Laterality Modality Body, Chest N/A Computed Radiogr aphy 07/24/2025 2:20 PM CDT Impressions 07/24/2025 2:20 PM CDT No focal opacity suggestive of mass or pneumonia. No pleural effusion or pneumothorax. Cardiomediastinal silhouette is normal. Electronically signed by: Chip Fegn M.D. Narrative 07/24/2025 2:20 PM CDT EXAMINATION: XR CHEST 1 VIEW HISTORY: acute hypoxia Procedure Note Chip Feng MD - 07/24/2025 EXAMINATION: XR CHEST 1 VIEW HISTORY: acute hypoxia IMPRESSION: No focal opacity suggestive of mass or pneumonia. No pleural effusion or pneumothorax. Cardiomediastinal silhouette is normal. Electronically signed by: Chip Feng M.D. us Rashaun Syed MD IMG XR PROCEDURES Final Res ult * eGFR (07/24/2025 12:56 PM CDT) eGFR >90 >=60 mL/min/1. 73 m2 [...] of Race in Diagnosing Kidney Disease, JASN 202). The CKD-EPI equation should not be used for patients with unstable renal function and has not been validated in children and those over 70. Current interpretive data was last reviewed 2021. Blood 07/24/2025 12:5 6 PM CDT 07/24/2025 1:00 PM CDT us Rashaun Syed MD LAB BLOOD ORDERABLES Final Result [facility] Department [place] [address] * Pro B-type natriuretic peptide (07/24/2025 12:56 PM CDT) NT-proBNP 179 <=300 pg/mL Comment: Interpretive Comments: A. Dyspnea in Acute Care Setting All Ages: < 300 pg/ml, acute heart failure unlikely. < 50 yrs: 300 - 450 pg/ml, further investigation warranted. > 450 pg/ml, acute heart failure likely. 50 - 74 yrs: 300 - 900 pg/ml, further investigation warranted. > 900 pg/ml, acute heart failure likely . > or = 75 yrs: 450 - 1800 pg/ml, further investigation warranted. > 1800 pg/ml, acute heart failure likely. B. Non-acute Setting < 75 yrs < 125 pg/ml, rules out heart failure. > or = 125 pg/ml, further investigation warranted. > or = 75 yrs < 450 pg/ml, rules out heart failure. > or = 450 pg/ml, further investigation warranted. - Knowledge of each individual patient's NT-proBNP range may be more useful than using similar cut-points for every patient. Please note that marked elevations in NT-proBNP levels may be observed in state other than Left Ventricular Congestive Failure, including: acute coronary syndromes, right heart strain/failure (including pulmonary embolism and cor pulmonale), critical illness, renal failure, as well as advanced age. - References: 1. Jericho TO et.al. Eur Heart J. 2006:27:330-337. 2. Ti RW, Naye VELASQUEZ. J. AM Honey Cardiol: Cardiovasc Imag. 2009;2: 216- 225. Interpretive Data Last Revised Date: 2018. Blood 07/24/2025 12:5 6 PM CDT 07/24/2025 1:00 PM CDT us Rashaun Syed MD LAB BLOOD ORDERABLES Final Result [facility] [address] Department [place] [address] * (ABNORMAL) CBC without differential (07/24/2025 12:56 PM CDT) WBC 10.60(H) 3.80 - 9.90 K/cumm Hgb 13.4 13.0 - 17.5 g/dL [facility] Hct 41.2 38.9 - 50.3 % [facility] Plt 236 150 - 400 K/cumm [facility] MPV 9.1 9.1 - 12.3 fL [facility] RBC 4.44 4.30 - 5.80 M/cumm [facility] MCV 92.8 81.3 - 96.4 fL [facility] MCH 30.2 27.1 - 33.3 pg [facility] MCHC 32.5 32.3 - 35.7 g/dL [facility] RDW CV 14.3 11.1 - 14.9 % [facility] RDW SD 48.8(H) 35.7 - 48.1 fL [facility] NRBC abs 0.00 0.00 - 0.01 K/cumm [facility] Blood 07/24/2025 12:5 6 PM CDT 07/24/2025 1:00 PM CDT Rashaun Syed MD LAB BLOOD ORDERABLES Final Result [facility] [address] [facility] Department [place] [address] * (ABNORMAL) Basic metabolic panel (07/24/2025 12:56 PM CDT) Sodium 133(L) 135 - 145 mmol/L Potassium, pl 3.8 3.3 - 4.9 mmol/L [facility] Chloride 101 97 - 110 mmol/L [facility] CO2 18(L) 22 - 32 mmol/L [facility] Anion gap 14 2 - 15 mmol/L [facility] BUN 15 6 - 25 mg/dL [facility] Creatinine 0.87 0.80 - 1.30 mg/dL [facility] Glucose 101 70 - 199 mg/dL [facility] Comment: Interpretive Data Fasting glucose >/= 126 [...] classification and Diagnosis of Diabetes Diabetes Care 2021; 46: S19-S40. Current interpretive data was last revised 2022. Calcium 8.8 8.5 - 10.3 mg/dL [facility] Blood 07/24/2025 12:5 6 PM CDT 07/24/2025 1:00 PM CDT us Rashaun Syed MD LAB BLOOD ORDERABLES Final Result Performing Organization Address [facility] Co de Phone Number [facility] [address] [facility] Department [place] [address] * FL Fluoroscopy < 1 Hour (07/23/2025 10:29 AM CDT) Narrative [email or web address] - 07/23/2025 10:31 AM CDT The images from this study are not interpreted by Radiology. Please refer to the physician's procedure / OR operative note. us Andrea Shelby MD IMG FLUOROSCOPY PROCEDURES Fin al Result Performing Organization Address [facility] Co de Phone Number [email or web address] * AR AN ELECTIVE ENDOTRACHEAL AIRWAY (07/23/2025 7:42 AM CDT) Narrative Elvia Mercedes CRNA - 07/23/2025 7:42 AM CDT Elvia Mercedes CRNA 07/23/2025 7:45 AM Airway Patient location: OR Urgency: elective Date/time: 07/23/2025 7:23 AM Indications for airway management: anesthesia Difficult airway: no Staff: Supervising provider: London Wolfe MD Placed by: DRY COLOR TESTER: Elvia Mercedes CRNA Emergent airway documentation: Risks and benefits discussed: yes Consent obtained: yes Consent given by: patient Airway prep: Preoxygenated: yes Patient position: sniffing Mask difficulty assessment: 0 - not attempted Spontaneous ventilation during airway: absent Sedation level during airway: GA Final airway details: Final airway type: endotracheal airway Tube type: ETT ETT size: 8.0 mm Cuffed: yes Technique used for successful ETT placement: video laryngoscopy Devices/Methods used in placement: intubating stylet Insertion site: oral Video blade type: Benton Blade size: 4 Cormack-Lehane (video): grade I - full view of glottis Cuff volume: 10 mL Cuff inflated with: air ETT to lips: 23 cm Placement verified by: auscultation and CO2 detection Airway secured with: transpore tape Planned trial extubation: yes Additional comments: Atraumatic. Lips, gums and teeth in preop condition. us London Wolfe MD ANESTHESIA ORDERABLES Final Result from Last 3 Months Insurance [employer] [employer] Address: [facility] [id number] [place] [id number] UHC MEDICARE ADVANTAGE [facility] [employer] UHC MEDICARE ADVANTAGE [facility] Address: [address] [address] [place] [address] Advance Directives For more information, please contact: [phone] * Full Code (Latest Code Status on File) Date Activated Date Inactivated Comments 07/23/2025 12:18 PM 07/25/2025 11:06 PM Care Teams Activities Counselor Relationship Specialty Start Date End Date Marah Brannon NP [address] [place] [address] [place] [address] PCP - General Nurse Practitioner 07/15/25
--- OUTSIDE RECORDS SUMMARY | 2025-07-31 12:56 | XMS_ITS | Patient Health Record ---
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 Name Role Phone Harry Merritt Unavailable [phone] Allergies Allergen (clinical drug ingredient) Drug/Non Drug Allergy documented on EMR Reaction Allergy Type Onset Date Status Latex Latex rash Allergy Active Penicillin rash Drug Allergy Active Tape rash Allergy Active Reason For Referral No Information Medications Medication SIG (Take, Route, Frequency, Duration) Notes Start Date End Date Status [place] 7.5-325 MG 1 tablet as needed Orally every 6 hrs; Duration: 30 days 05/27/2021 Not-Taking Sertraline HCl 100 MG 1 tablet Orally On ce a day Active Azithromycin 250 MG Oral; Duration: 5 Not-Taking Levocetirizine Dihydrochloride 5 MG 1 tablet in the evening Orally Once a day Active Fenofibrate 160 MG 1 tablet Orally Once a day; Duration: 90 Active Losartan Potassium-HCTZ 100-12.5 MG 1 tablet Orally Once a day; Duration: 90 Active amLODIPine Besylate 5 MG 1 tablet Orally Once a day; Duration: 90 Active tiZANidine HCl 2 MG TAKE 1 TABLET BY MOUTH THREE TIMES DAILY NEEDED; Duration: 30 Active tiZANidine HCl 2 MG 1 tablet as needed Orally Three times a day; Duration: 30 days Active Baclofen 10 MG TAKE 1 TABLET BY MOUTH THREE TIMES DAILY WITH FOOD OR MILK; Duration: 90 Active HYDROcodone-Acetaminophen 7.5-325 MG 1 tablet as needed Orally every 6 hrs; Duration: 30 days 09/17/2024 Active Zolpidem Tartrate 10 MG 1 tablet at [place] as needed Orally Once a day Active ALPRAZolam ER 1 MG 1 tablet in the morning Orally Once a day Active Dicyclomine HCl 20 MG 1 tablet Orally Th ree times a day Not-Taking Loperamide HCl 2 MG 1 capsule as needed Orally Four times a day Active Social History Tobacco Use: Social History Observation Description Date Details (start date - stop date) Never Smoker NA - NA Tobacco Use/Smoking Question Answer Notes Are you a nonsmoker Alcohol Screen (Audit-C) Question Answer Notes Did you have a drink containing alcohol in the p ast year? Yes Points 0 Interpretation Negative Problems Problem Type SNOMED Code ICD Code Onset Dates Problem Status W/U Status Risk Notes Problem Chronic pain (50209901) Other chronic pain (G89.29) Active confirmed Problem Cervical spondylosis without myelopathy (173928973) Spondylosis without myelopathy or radiculopathy, cervical region (M47.812) Active confirmed Problem Cervical disc disorder with radiculopathy (771371949) Cervical disc disorder with radiculopathy, cervicothoracic 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) Active confirmed Problem Low back pain (790324563) Low back pain (M54.5) Active confirmed Problem Myositis (73488756) Other myositis, 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) Active confirmed Problem Post-laminectomy syndrome (99349361) Postlaminectomy syndrome, not elsewhere classified (M96.1) Active confirmed Problem Lumbosacral spondylosis without myelopathy (48078506) 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) Active confirmed Problem Lumbosacral radiculopathy (7120010) Radiculopathy of lumbosacral region (M54.17) Active confirmed Problem High risk drug monitoring status (376491995) jail current use of opiate analgesic (Z79.891) Active confirmed Problem Obesity (887775134) Obesity, unspecified classification, unspecified obesity type, unspecified whether serious comorbidity present (E66.9) Active confirmed Problem Sacroiliitis (56268888) Sacroiliitis (M46.1) Active confirmed Problem Myofascial pain (171953140) Myofascial pain (M79.18) Active confirmed Vital Signs Heart Rate 89 /min 09/17/2024 Temperature 97.9 degrees Fahrenheit 09/17/2024 Respiratory Rate 18 /min 09/17/2024 Blood pressure diastolic 79 mm Hg 09/17/2024 Height 73 in 09/17/2024 Blood pressure systolic 115 mm Hg 09/17/2024 Weight 272 lbs 09/17/2024 BMI 35.88 kg/m2 09/17/2024 Encounters Encounter Location Date Provider Diagnosis [place] [address] [place] [address] 09/17/[address] [facility] Sacroiliitis M46.1 ; Spondylosis of lumbosacral region without myelopathy or radiculopathy M47.817 ; Low back pain M54.5 ; Other chronic pain G89.29 ; Postlaminectomy syndrome, not elsewhere classified M96.1 ; jail current use of opiate analgesic Z79.891 ; Obesity, unspecified classification, unspecified obesity type, unspecified whether serious comorbidity present E66.9 ; Spondylosis without myelopathy or radiculopathy, cervical region M47.812 ; Radiculopathy of lumbosacral region M54.17 ; Other myositis, multiple sites M60.89 ; Myofascial pain M79.18 and Cervical disc disorder with radiculopathy, cervicothoracic region M50.13 [facility] [place] [facility] [address] [place] [address] 09/03/2024 [facility] [address] [place] [address] 09/24/[address] [facility] Assessments Encounter Date Diagnosis (ICD Code) Assessment Notes Treatment Notes Treatment Clinical Notes [...] not elsewhere classified (ICD-10 - M96.1) 09/17/2024 jail current use of opiate analgesic (ICD-10 - [...] interventional pain procedures and prescription medication management. Plan Of Treatment No Information Insurance Providers Payer Name Payer Address Payer Phone Subscriber Number Group Number Insured Name Patient Relationship to Insured Coverage Start Date Coverage End Date Medicare Complete [address] [address] [place] [address] [id number] Lauri Almeida Self - patient is the insured Medical (General) History Medical History History ICD Code Heart attack [...]
== END 2025-07-31 12:50 | disposition home or self-care (01) ==
PROVIDERS: Visit Provider Neurological Surgery
DX: M54.50 Low back pain, unspecified (principal); Z98.1 Arthrodesis status
CPT/HCPCS: 72100